=== PATIENT | male | born 1930 | race Caucasian/White ===

== ENCOUNTER 2016-09-06 16:31 | Inpatient (IN) | payer MEDICARE, MEDICAID ==
[2016-09-06] MEDS ORDERED: Sodium Chloride 0.9% 1,000 ML IV ONE ×2 (16:39→23:02)
[2016-09-06] MEDS ORDERED: Albuterol/Ipratropium Neb 3 ML AERS HHN ONE ×2 (16:42→16:43)
--- NOTE | 2016-09-06 16:59 | ED Physician Chart ---
Chief Complaint/HPI - Patient Information Date Seen:: 09/06/16 Time Seen:: 16:25 Chief Complaint:: altered mental status History of Present Illness:: Patient was brought in by paramedics. He apparently developed altered mental status one hour prior to admission. Paramedics were summoned patient. Patient has a history of pneumonia and urinary tract infection. There was no mention of recent cough, fever, vomiting or diarrhea. 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) Review:: Transfer documents Reviewed Review of Systems - Review of Systems General/Constitutional: No fever, No chills Skin: No skin lesions Head: No headache Eyes: No loss of vision ENT: No earache Neck: No neck pain Cardio Vascular: No chest pain Pulmonary: SOB, Cough GI: No nausea, No vomiting, No diarrhea G/U: No dysuria Musculoskeletal: No bone or joint pain Endocrine: No polyuria Psychiatric: Other (unknown) Past Medical History - Past Medical History Past Medical History: HTN, DM, CHF, Arthritis, Other (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; aortic valve disorder; status post pneumonia; status post urinary tract infection) Family History: Other (unavailable) Social History: Other (unavailable) Surgical History: other (unavailable) Psychiatricy History: Other (unavailable) Medication: Reviewed Family Medical History - Family Member Mother History Unknown: Yes Physical Exam - Physical Examination Other Gen/Cons comments:: Tachypneic; nonverbal; congested breathing; some coughing Head: Atraumatic Eyes: Lids, conjuctiva normal Other Skin comments:: Ecchymosis arm ENMT: External ears, nose nl Other ENMT comments:: Edentulous Neck: No nuchal rigidity Other Respiratory comments:: Diffuse harsh breath sounds Other Cardio Vascular comments:: Heart sounds inaudible GI: No organomegaly Other GI comments:: Diffuse tenderness Extremities: No edema Other Neuro/Psych comments:: Nonverbal Labs/Radiology/EKG Results - Lab Results Results: Laboratory Results - last 24 hr 09/06/16 09/06/16 09/06/16 16:45 16:52 16:52 WBC 7.1 RBC 4.10 Hgb 12.3 L Hct 37.6 L MCV 91.8 MCH 29.9 MCHC Differential 32.6 RDW 18.4 Plt Count 101 L MPV 13.9 Neutrophils % 84.9 H Lymphocytes % 8.0 L Monocytes % 6.8 Eosinophils % 0.1 Basophils % 0.2 Sodium 162 H* Potassium 5.6 H Chloride 131 H Carbon Dioxide 26.0 Anion Gap 10.6 BUN 96 H* Creatinine 2.1 H Est GFR ( Amer) TNP Est GFR (Non-Af Amer) TNP BUN/Creatinine Ratio 45.7 Glucose 102 Whole Bld Lactic Acid Calcium 9.8 Magnesium 3.1 H Urine Source [place] Urine Color YELLOW Urine Clarity CLEAR Urine pH 5.5 Ur Specific [place] 1.020 Urine Protein NEGATIVE Urine Glucose (UA) NEGATIVE Urine Ketones NEGATIVE Urine Blood NEGATIVE Urine Nitrate NEGATIVE Urine Bilirubin NEGATIVE Urine Urobilinogen 0.2 Ur Leukocyte Esterase NEGATIVE Urine RBC NONE SEEN Urine WBC NONE SEEN Ur Epithelial Cells NONE SEEN Urine Bacteria NONE SEEN 09/06/16 16:52 WBC RBC Hgb Hct MCV MCH MCHC Differential RDW Plt Count MPV Neutrophils % Lymphocytes % Monocytes % Eosinophils % Basophils % Sodium Potassium Chloride Carbon Dioxide Anion Gap BUN Creatinine Est GFR ( Amer) Est GFR (Non-Af Amer) BUN/Creatinine Ratio Glucose Whole Bld Lactic Acid 1.85 Calcium Magnesium Urine Source Urine Color Urine Clarity Urine pH Ur Specific [place] Urine Protein Urine Glucose (UA) Urine Ketones Urine Blood Urine Nitrate Urine Bilirubin Urine Urobilinogen Ur Leukocyte Esterase Urine RBC Urine WBC Ur Epithelial Cells Urine Bacteria - Radiology Results Results: Chest x-ray right basilar infiltrate - EKG Interpretations Rate & Rhythm: atrial fibrillation with a rate of 109 [place]: normal Comments:: Frequent premature ventricular contractions; old septal myocardial infarction. Assessment - Assessment General Assessment: At 1826 patient's blood pressure remained low at 69/36 Critical Care Time: 30 minutes critical care ED Septic Shock - . Is Septic Shock (SBP<90, OR Lactate>4 mmol\L) present?: No - <6hrs of presentation: Vital Signs: Vital Signs - 8 hr 09/06/16 16:47 HR 95 RR 22 O2 Sat % 96 Reassessment (Disposition) - Reassessment Reassessment Condition:: Unchanged - Diagnosis Diagnosis:: Pneumonia; sepsis. Hypernatremic dehydration - Patient Disposition Admitted to:: ICU Spoke to:: Maximus Chilel Admitting Medical Physician:: Maximus Chilel Condition at Disposition:: Unchanged
[2016-09-06 17:05] LABS: HEMOGLOBIN 12.3 gm/dL (12.6-17.4); MEAN CORPUSCULAR HGB CONC 32.6 pg (28.0-36.0)
[2016-09-06 17:12] LABS: % BASOPHILS 0.2 % (0.0-2.0); % EOSINOPHILS 0.1 % (0.0-5.0); % MONOCYTES 6.8 % (2.0-10.0); % NEUTROPHILS 84.9 % (40.0-80.0); HEMATOCRIT 37.6 % (39.0-49.0); MEAN CELL VOLUME 91.8 fl (80-99); MEAN CORPUSCULAR HEMOGLOBIN 29.9 pg (27.0-31.0); MEAN PLATELET VOLUME 13.9 fl; PLATELET COUNT 101 Th/cmm (150-400); RED CELL DISTRIBUTION WIDTH 18.4 % (11.5-20.0); WHITE BLOOD COUNT 7.1 Th/cmm (4.8-10.8)
[2016-09-06 17:15] LABS: URINE BILIRUBIN NEGATIVE (NEGATIVE); URINE BLOOD NEGATIVE (NEGATIVE); URINE COLOR YELLOW; URINE GLUCOSE (UA) NEGATIVE (NEGATIVE); URINE KETONE NEGATIVE (NEGATIVE); URINE PH 5.5; URINE PROTEIN NEGATIVE (NEGATIVE); URINE UROBILINOGEN 0.2 E.U./dL (0.2 - 1.0)
[2016-09-06 17:16] LABS: URINE BACTERIA NONE SEEN /hpf (NONE SEEN); URINE EPITHELIAL CELLS NONE SEEN /lpf (FEW); URINE RBC NONE SEEN /hpf (0-5); URINE WBC NONE SEEN /hpf (0-5)
[2016-09-06 17:19] LABS: ANION GAP 10.6 (7.0-16.0); BUN/CREATININE RATIO 45.7; CALCIUM SERUM 9.8 mg/dL (8.6-10.3); CHLORIDE 131 mEq/L (98-107); CREATININE - SERUM 2.1 mg/dL (0.7-1.3); GLUCOSE 102 mg/dL (70-105); MAGNESIUM 3.1 mg/dL (1.9-2.7); POTASSIUM SERUM 5.6 mEq/L (3.5-5.1)
[2016-09-06 17:24] LABS: SODIUM SERUM 162 mEq/L (136-145)
[2016-09-06 17:25] LABS: BUN - UREA NITROGEN 96 mg/dL (7-25)
[2016-09-06] MEDS ORDERED: Piperacillin Sodium/Tazobact 3.375 gm Vial IV ONE ×2 (17:41→22:00)
[2016-09-06] MEDS ORDERED: Norepinephrine 4 mg/4mL Vial IV ONE ×2 (18:19→23:21)
[2016-09-06 19:28] LABS: pH 7.35 (7.35-7.45)
[2016-09-06 19:29] LABS: ABG SOURCE LB; ALLEN TEST P; FIO2 65; HCO3 23.3 mEq/L (20.0-26.0)
--- NOTE | 2016-09-06 19:32 | Admit Criteria Form ---
Admit Criteria Forms - Admit Criteria Diagnosis: PNEUMONIA, COMMUNITY ACQUIRED Clinical Indications for Admission to Inpatient Care ( Place 'X' for any and all applicable criteria): Admission is indicated for ANY ONE of the following (1)(2)(3): [ ]I. Hypoxemia indicated by ANY ONE of the following: [ ]a) Oxygen saturation less than 90% while breathing room air [ ]b) PO2 less than 60 mm Hg (8.0 kPa) while breathing room air [ ]c) Chronic lung disease with significant deterioration from baseline oxygenation [ ]II. Appropriate diagnostic testing and treatment unavailable in outpatient or recovery facility (eg,testing or infection control measures unavailable(10) [X]III. Moderate-risk or high-risk category patients (Pneumonia Severity Index (PSI) class IV or V, or CURB-65 score of 3 or greater). [ ]IV. Outpatient treatment failure as indicated by ANY ONE of the following(9) : [ ]a) Failure to respond to antibiotic (eg, resistant organism) [ ]b) Clinically significant adverse effects from medication (eg, vomiting) [ ]c) Complications of pneumonia (eg, empyema, bacteremia) [ ]d) Significant worsening of comorbid cond necessitating inpatient care (eg, chronic heart failure) [ ]V. Intermediate-risk category patients (eg, PSI class III or CURB-65 score 2) who do not improve with initial therapy and observation. [ ]. Immunocompromised patients (eg, AIDS, chronic steroid use) at moderate or high risk based on clinical evaluation. [ ]VII. Complicated pleural effusions (eg, exudative, loculated) [ ]VIII.Hemodynamic instability [ ] IX. Altered mental status that is severe or persistent. [ ]X. Dehydration that is severe or persistent. [ ]XI. Bacteremia [ ]XII. Respiratory finding (eg. tachypnea) that do not respond to outpatient or observation care treatment Extended stay beyond goal length of stay may be needed for (20) [ ]a) Unclear diagnosis [ ]b) Pleural disease [ ]c) Severe pneumonia or treatment failure (25 [ ]d) Respiratory failure (anticipate invasive or noninvasive ventilatory support) [ ]e) Abnormal serum electrolytes (serum Na concentration less than 135 mEq/L (mmol/L) (32)(33) [ ]f) Clinically significant comorbid illness (eg, heart failure, atrial fibrillation with rapid heart rate, alcohol withdrawal, renal insufficiency)(34)(35) [ ]g) Comorbid acute exacerbation of COPD(36) [ ]h) Concomitant diagnosis of malignancy that may be associated with malnutrition, immunologic impairment, or bronchial obstruction. [ ]i) Concomitant altered mental status [ ]j) Culture-identified Gram-negative or antibiotic-resistant organism (eg, Pseudomonas, methicillin-resistant Staphylococcus aureus)(30) [ ]k) Healthcare-associated pneumonia The original [facility] content created by [email or web address] has been revised. The portions of the content which have been revised are identified through the use of italic text or in bold, and [facility] has neither reviewed nor approved the modified material. All other unmodified content is copyright [facility]. Please see references footnoted in the original [facility] [employer] edition 2016 Admit Criteria Met?: Yes
[2016-09-06] MEDS ORDERED: D5-0.45NS 1,000 ML IV SCH (19:50)
[2016-09-06 20:29] VITALS: BP 100/67
[2016-09-06] MEDS: Dextrose 5% 1,000 ML IV SCH (22:30)
[2016-09-06] MEDS ORDERED: Ipratropium Neb 0.5 mg/2.5 mL UD HHN SCH (23:00)
[2016-09-06] MEDS: Albuterol/Ipratropium Neb 3 ML AERS HHN SCH (23:40)
--- NOTE | 2016-09-07 00:39 | History & Physical ---
ADMIT DATE: 09/06/2016 CHIEF COMPLAINT: Pneumonia, septic shock, dehydration and acute renal failure. HISTORY OF PRESENT ILLNESS: The patient is an 86-year-old male with long history of hypertension, CVA with right-sided weakness and dementia, presented to the Emergency Room with shortness of breath and hypoxemia evaluated by the ER physician. Initial workup significant for possible aspiration pneumonia, septic shock. The patient had fluid at the Emergency Room, was admitted to the ICU. ____ and Dr. Bowen. Pulmonary was consulted on the case. The patient started on IV fluid, IV antibiotic, Solu-Medrol and Levophed. The patient is a poor historian. PAST MEDICAL HISTORY: Significant for hypertension, stroke with right-sided weakness and dementia. PAST SURGICAL HISTORY: No recent surgery. ALLERGIES: None. MEDICATIONS: Follow admission reconciliation. SOCIAL HISTORY: No smoking or drugs or alcohol. FAMILY HISTORY: Noncontributory. REVIEW OF SYSTEMS: RENAL SYSTEM: No history of chronic renal disorder. CARDIOVASCULAR SYSTEM: He has history of hypertension. ENDOCRINE SYSTEM: No diabetes or thyroid problem. GASTROINTESTINAL SYSTEM: No upper or lower GI bleed. NEUROLOGICAL: He has history of stroke, dementia with right-sided hemiplegia. MUSCULOSKELETAL SYSTEM: He has right-sided weakness. HEMATOLOGIC SYSTEM SYSTEM: Mild anemia. RESPIRATORY SYSTEM: He has possible aspiration pneumonia. GENITOURINARY: He has acute renal failure with dehydration. PHYSICAL EXAMINATION: GENERAL: He is awake, not coherent. VITAL SIGNS: His temperature is 98, heart rate is 95 and blood pressure is 108/60. HEENT: Normocephalic. Pupils are reacting to light and accommodation. Sclerae clear. NECK: Supple. Negative for lymphadenopathy, JVD or bruit. CHEST: Bilateral diminished associated with diffuse rhonchi. HEART: S1 and S2 normal. ABDOMEN: Soft. Bowel sounds positive. EXTREMITIES: No edema. NEUROLOGIC: He is awake, not coherent. He has right-sided weakness. LABORATORY DATA: Sodium 162, potassium 5.6, BUN is 96, creatinine 2.1, magnesium 3.1 and glucose 218. White blood 7.1, hemoglobin 12.3, hematocrit 37.6 and platelet is 101. ASSESSMENT: 1. Aspiration pneumonia. 2. Septic shock. 3. Acute respiratory failure. 4. Dehydration. 5. Acute renal failure. 6. Hypernatremia. 7. Mild anemia. 8. History of cerebrovascular accident with right-sided weakness. PLAN: The patient admitted to the hospital under Dr. Chilel's service. We will start him on IV fluid, IV Solu-Medrol, breathing treatment. Dr. Dexter Bowen, pulmonology consulted on the case and ____, double back operator. CBC, CMP for tomorrow. The patient is a full code. JOB# [id number]
[2016-09-07] MEDS ORDERED: Norepinephrine 4 mg/4mL Vial IV ONE ×3 (02:11→07:14)
[2016-09-07 04:52] LABS: HEMATOCRIT 36.8 % (39.0-49.0); HEMOGLOBIN 11.9 gm/dL (12.6-17.4); MEAN CORPUSCULAR HEMOGLOBIN 30.3 pg (27.0-31.0); MEAN CORPUSCULAR HGB CONC 32.2 pg (28.0-36.0); MEAN PLATELET VOLUME 14.8 fl; PLATELET COUNT 114 Th/cmm (150-400); RED BLOOD COUNT 3.92 Mil/cmm (3.80-5.80); RED CELL DISTRIBUTION WIDTH 19.8 % (11.5-20.0)
[2016-09-07] MEDS ORDERED: Piperacillin Sodium/Tazobact 3.375 gm Vial IV ONE (05:01)
[2016-09-07 05:03] LABS: INR 3.42 (0.5-1.4)
[2016-09-07 05:08] LABS: ALB/GLOB RATIO 0.7 (1.0-1.8); ALKALINE PHOSPHATASE 59 U/L (34-104); ANION GAP 10.4 (7.0-16.0); BILIRUBIN,TOTAL 0.4 mg/dL (0.3-1.0); CARBON DIOXIDE 23.4 mEq/L (21.0-31.0); CHLORIDE 129 mEq/L (98-107); GLUCOSE 355 mg/dL (70-105); POTASSIUM SERUM 5.8 mEq/L (3.5-5.1); SGOT 14 U/L (13-39); SGPT/ALT 16 U/L (7-52); SODIUM SERUM 157 mEq/L (136-145)
[2016-09-07 05:36] LABS: BUN - UREA NITROGEN 88 mg/dL (7-25)
[2016-09-07] MEDS: methylPREDNISolone SS 40 mg Vial IVP SCH ×2 (06:15→11:38)
[2016-09-07 06:23] LABS: BAND NEUTROPHILE 17 % (0-10); NEUTROPHILS 65 % (40-80); PLATELET ESTIMATE DECREASED PLATELETS (NORMAL); PLATELET MORPHOLOGY NORMAL (NORMAL); TOTAL CELLS COUNTED 100
[2016-09-07] MEDS: INSULIN ASPART SLIDING SCALE 100 UNITS/ML UNIT SUBQ SCH ×4 (06:35→20:33)
[2016-09-07] MEDS ORDERED: Budesonide 0.5 Mg/2 mL Ud HHN SCH (07:00)
[2016-09-07] MEDS ORDERED: Albuterol/Ipratropium Neb 3 ML AERS HHN SCH (07:00)
[2016-09-07] MEDS: Albuterol/Ipratropium Neb 3 ML AERS HHN SCH ×4 (08:11→19:56)
--- NOTE | 2016-09-07 09:12 | Diagnostic Imaging Report ---
Portable chest x-ray HISTORY: Pneumonia Compared to prior exam of September 06, 2016, the heart is enlarged. Suggestion of a small right pleural effusion. No definite focal pulmonary parenchymal processes. IMPRESSION: 1. Cardiomegaly 2. suggestion of a small right pleural effusion. A marginal degree of congestive heart failure cannot be excluded. Clinical correlation is needed.
--- NOTE | 2016-09-07 09:22 | Diagnostic Imaging Report ---
Portable chest x-ray HISTORY: Shortness of breath The heart size is difficult to assess with portable technique in a poor inspiration, but appears to be somewhat enlarged. Density noted within the right lower hemithorax. A small effusion cannot be excluded. IMPRESSION: 1. Slight increased density in the right lower hemithorax. A small effusion cannot be excluded. 2. Cardiomegaly with atherosclerotic vascular changes
[2016-09-07] MEDS: Dextrose 5% 1,000 ML IV SCH ×2 (10:20→15:19)
[2016-09-07] MEDS ORDERED: Midazolam 1mg/ml 2 ml vial IV ONE ×2 (10:51→11:29)
[2016-09-07 11:09] LABS: ABG SOURCE Arterial; ALLEN TEST YES; BE(B) -9.1 mEq/L (-3.0-3.0); FIO2 44; HCO3 17.9 mEq/L (20.0-26.0)
[2016-09-07 12:06] LABS: ABG SOURCE Arterial; ALLEN TEST YES; BE(B) -9.7 mEq/L (-3.0-3.0); FIO2 100; HCO3 17.4 mEq/L (20.0-26.0); MECH RATE 12; MECH VT 600; pH 7.16 (7.35-7.45)
[2016-09-07] MEDS ORDERED: Sodium Bicarbonate 8.4% 50mEq PFS IVP ONE ×2 (12:22→12:24)
--- NOTE | 2016-09-07 13:00 | Diagnostic Imaging Report ---
KUB abdominal film HISTORY: Pain There is a nonspecific gas pattern of nondilated bowel. There is an approximate 2.8 x 2.0 cm radiodensity projecting over the left midabdomen. This is suggestive of calcification. Exact location uncertain. It is uncertain if this is within bowel. If necessary, a CT scan would provide further assessment. Severe diffuse degenerative changes seen throughout the spine. Severe extensive atherosclerotic vascular calcification noted. IMPRESSION: 1. Nonspecific bowel gas pattern 2. Radiodensity projecting over the left mid abdomen. Exact location is uncertain. Question calcification. This may be related to bowel. If necessary, a CT scan would provide additional assessment. 3. Severe degenerative changes throughout the spine 4. Extensive atherosclerotic vascular changes
--- NOTE | 2016-09-07 13:07 | General Progress Note ---
Subjective - Review of Systems Service Date: 09/07/16 Events since last encounter: THIS IS AN 86 YO MALE IN THE ICU WHO NEEDED INTUBATION BECAUSE OF ABNORMAL ABG WITH A LOW PH 7.1 THE PATIENT WAS EVALUATED AND PREPPED WITH VERSED, SUCCINYLCHOLINE THEN USED A 7.5 INTUBATION TUBE TO INTUBATE THE PATIENT WITHOUT COMPLICATIONS. THE POST X-RAYS WERE REVIEWED AND THE TUBE WAS IN GOOD PLACEMENT. THE VENT SETTING WERE FIO OF 100, RATE= 12, PEP= 5, TV= 600. Subjective: THIS IS AN ER CONSULTATION. Objective - Results Result Diagrams: 09/07/16 04:37 09/07/16 04:37 Recent Labs: Laboratory Last Values WBC 8.0 Th/cmm (4.8-10.8) 09/07/16 04:37 RBC 3.92 Mil/cmm (3.80-5.80) 09/07/16 04:37 Hgb 11.9 gm/dL (12.6-17.4) L 09/07/16 04:37 Hct 36.8 % (39.0-49.0) L 09/07/16 04:37 MCV 94.0 fl (80-99) 09/07/16 04:37 MCH 30.3 pg (27.0-31.0) 09/07/16 04:37 MCHC Differential 32.2 pg (28.0-36.0) 09/07/16 04:37 RDW 19.8 % (11.5-20.0) 09/07/16 04:37 Plt Count 114 Th/cmm (150-400) L 09/07/16 04:37 MPV 14.8 fl 09/07/16 04:37 Neutrophils % 84.9 % (40.0-80.0) H 09/06/16 16:52 Band Neutrophils % 17 % (0-10) H 09/07/16 04:37 Lymphocytes % 8.0 % (20.0-50.0) L 09/06/16 16:52 Monocytes % 6.8 % (2.0-10.0) 09/06/16 16:52 Eosinophils % 0.1 % (0.0-5.0) 09/06/16 16:52 Basophils % 0.2 % (0.0-2.0) 09/06/16 16:52 Neutrophils (Manual) 65 % (40-80) 09/07/16 04:37 Lymphocytes 13 % (20-50) L 09/07/16 04:37 Monocytes 4 % (2-10) 09/07/16 04:37 Nucleated RBCs 3.0 % (0-0) H 09/07/16 04:37 Platelet Estimate DECREASED PLATELETS (NORMAL) 09/07/16 04:37 Platelet Morphology NORMAL (NORMAL) 09/07/16 04:37 RBC Morph Micro Appear NORMAL (NORMAL) 09/07/16 04:37 PT 38.0 SECONDS (9.5-11.5) H 09/07/16 04:37 INR 3.42 (0.5-1.4) H 09/07/16 04:37 Specimen Source Arterial 09/07/16 11:45 Sample Site Right Radial 09/07/16 11:45 pH 7.16 (7.35-7.45) L* 09/07/16 11:45 pCO2 54.0 mmHg (35.0-45.0) H 09/07/16 11:45 pO2 465.0 mmHg (80.0-100.0) H 09/07/16 11:45 HCO3 17.4 mEq/L (20.0-26.0) L 09/07/16 11:45 Base Excess -9.7 mEq/L (-3.0-3.0) L 09/07/16 11:45 O2 Saturation 100.0 % (92.0-100.0) 09/07/16 11:45 [place] Test YES 09/07/16 11:45 Vent Rate 12 09/07/16 11:45 Inspired O2 100 09/07/16 11:45 Tidal Volume 600 09/07/16 11:45 PEEP 5 09/07/16 11:45 Pressure (ins/psv/peep) NA 09/07/16 11:45 Critical Value E.AGUILAR 09/07/16 11:45 Sodium 157 mEq/L (136-145) H 09/07/16 04:37 Potassium 5.8 mEq/L (3.5-5.1) H 09/07/16 04:37 Chloride 129 mEq/L (98-107) H 09/07/16 04:37 Carbon Dioxide 23.4 mEq/L (21.0-31.0) 09/07/16 04:37 Anion Gap 10.4 (7.0-16.0) 09/07/16 04:37 BUN 88 mg/dL (7-25) H* 09/07/16 04:37 Creatinine 2.0 mg/dL (0.7-1.3) H 09/07/16 04:37 Est GFR ( Amer) TNP 09/07/16 04:37 Est GFR (Non-Af Amer) TNP 09/07/16 04:37 BUN/Creatinine Ratio 44.0 09/07/16 04:37 Glucose 355 mg/dL (70-105) H 09/07/16 04:37 POC Glucose 331 MG/DL (70 - 105) H 09/07/16 06:27 Hemoglobin A1c % 6.2 % (4.0-6.0) H 09/07/16 04:37 Whole Bld Lactic Acid 1.85 mmol/L (0.60-1.99) 09/06/16 16:52 Calcium 9.0 mg/dL (8.6-10.3) 09/07/16 04:37 Magnesium 3.1 mg/dL (1.9-2.7) H 09/06/16 16:52 Total Bilirubin 0.4 mg/dL (0.3-1.0) 09/07/16 04:37 AST 14 U/L (13-39) 09/07/16 04:37 ALT 16 U/L (7-52) 09/07/16 04:37 Alkaline Phosphatase 59 U/L (34-104) 09/07/16 04:37 Total Protein 7.5 gm/dL (6.0-8.3) 09/07/16 04:37 Albumin 3.2 gm/dL (4.2-5.5) L 09/07/16 04:37 Globulin 4.3 gm/dL 09/07/16 04:37 Albumin/Globulin Ratio 0.7 (1.0-1.8) L 09/07/16 04:37 Urine Source [place] 09/06/16 16:45 Urine Color YELLOW 09/06/16 16:45 Urine Clarity CLEAR (CLEAR) 09/06/16 16:45 Urine pH 5.5 09/06/16 16:45 Ur Specific [place] 1.020 (1.005-1.030) 09/06/16 16:45 Urine Protein NEGATIVE mg/dL (NEGATIVE) 09/06/16 16:45 Urine Glucose (UA) NEGATIVE mg/dL (NEGATIVE) 09/06/16 16:45 Urine Ketones NEGATIVE mg/dL (NEGATIVE) 09/06/16 16:45 Urine Blood NEGATIVE (NEGATIVE) 09/06/16 16:45 Urine Nitrate NEGATIVE (NEGATIVE) 09/06/16 16:45 Urine Bilirubin NEGATIVE (NEGATIVE) 09/06/16 16:45 Urine Urobilinogen 0.2 E.U./dL (0.2 - 1.0) 09/06/16 16:45 Ur Leukocyte Esterase NEGATIVE (NEGATIVE) 09/06/16 16:45 Urine RBC NONE SEEN /hpf (0-5) 09/06/16 16:45 Urine WBC NONE SEEN /hpf (0-5) 09/06/16 16:45 Ur Epithelial Cells NONE SEEN /lpf (FEW) 09/06/16 16:45 Urine Bacteria NONE SEEN /hpf (NONE SEEN) 09/06/16 16:45 - Physical Exam Vitals and I&O: Vital Signs Temp 97.8 F 09/07/16 10:00 Pulse 91 09/07/16 12:24 Resp 12 09/07/16 10:00 BP 91/52 09/07/16 10:00 Pulse Ox 100 09/07/16 12:24 Intake & Output 09/06/16 09/07/16 09/07/16 18:59 06:59 18:59 Weight (lbs) 81.647 kg Active Medications: Current Medications Albuterol/Ipratropium (Duoneb Neb) 3 ml HHN [id number] [facility] Stop: 11/05/16 22:59 Last Admin: 09/07/16 12:22 Dose: 3 ml Budesonide (Pulmicort) 0.25 mg HHN BIDRT [facility] Stop: 11/06/16 06:59 Chlorhexidine Gluconate (Peridex) 15 ml MM 0800,2000 [facility] Stop: 11/06/16 19:59 Norepinephrine Bitartrate 4 mg (/ Dextrose) 254 mls @ 38.1 mls/hr IV TITR PRN; Protocol; 10 MCG/MIN PRN Reason: BP MAINTENANCE (PER PROTOCOL) Stop: 11/05/16 19:49 Last Admin: 09/07/16 10:17 Dose: 26 mcg/min, 99.06 mls/hr Piperacillin Sod/Tazobactam (Sod 3.375 gm/ Sodium Chloride) 50 mls @ 100 mls/ hr IV Q6HR JULIO Stop: 11/06/16 00:00 Last Admin: 09/07/16 06:00 Dose: 100 mls/hr Vancomycin HCl 0.75 gm/ Sodium (Chloride) 250 mls @ 165 mls/hr IV Q24H [facility]ULIO Stop: 11/05/16 20:59 Last Infusion: 09/07/16 00:02 Dose: Infused Dextrose (D5w) 1,000 mls @ 125 mls/hr IV .Q8H JULIO Stop: 11/05/16 21:41 Last Admin: 09/07/16 10:20 Dose: 125 mls/hr Insulin Aspart (Novolog Insulin Sliding Scale) 0 units SUBQ ACHS JULIO PRN Reason: Protocol Stop: 11/06/16 07:29 Last Admin: 09/07/16 06:35 Dose: 8 units Lorazepam (Ativan) 1 mg IVP Q4H PRN; Protocol PRN Reason: Agitation Stop: 11/06/16 11:18 Last Admin: 09/07/16 11:38 Dose: 1 mg Methylprednisolone Sodium Succinate (Solu-Medrol) 40 mg IVP Q6HR JULIO Stop: 11/06/16 05:59 Last Admin: 09/07/16 11:38 Dose: 40 mg Miscellaneous (Vancomycin Iv Per Pharmacy) 1 ea MC PRN PRN PRN Reason: PROTOCOL Stop: 11/05/16 19:49 Sodium Bicarbonate (Sodium Bicarb) 50 meq IVP X1 ONE Stop: 09/07/16 12:23
--- NOTE | 2016-09-07 13:13 | Diagnostic Imaging Report ---
Portable chest x-ray HISTORY: Shortness of breath Compared to prior exam taken earlier in the day (0803 hours), The heart size is enlarged. Density noted in the right lower hemithorax. Question pleural effusion. An endotracheal tube tip appears to extend just into the right main bronchus. This should be pulled back approximately 2-3 cm. A nasogastric tube extends below the diaphragm into the region of the stomach. IMPRESSION: 1. ENDOTRACHEAL TUBE TIP JUST INTO THE REGION OF THE RIGHT MAIN BRONCHUS. THIS SHOULD BE PULLED BACK APPROXIMATELY 2-3 CM 2. Nasogastric tube extends below the diaphragm into the region of the stomach
[2016-09-07] MEDS: Budesonide 0.5 Mg/2 mL Ud HHN SCH (19:55)
[2016-09-07] MEDS: Chlorhexidine Gluconate 0.12% 15mL Mouthwash MM SCH (19:56)
[2016-09-07] MEDS: methylPREDNISolone SS 40 mg Vial IV SCH (20:32)
--- NOTE | 2016-09-07 21:14 | Consultation ---
DATE OF CONSULTATION: 09/06/2016 REASON FOR CONSULTATION: Acute renal failure. HISTORY OF PRESENT ILLNESS: I was kindly asked by Dr. Chilel to evaluate this 86-year-old male from custodial facility. He came in because of altered mental status, not much history can be obtained from him. He was at the senior living and they found him altered, therefore, they brought him to the Emergency Room. When he arrived to the Emergency Room, he was found to have severe dehydration, acute renal failure, and pneumonia with sepsis. PAST MEDICAL HISTORY: He already had a history of recurrent pneumonia, UTI, and CVA with left-sided hemiplegia, congestive heart failure, history of hypertension, history of diabetes type 2, aortic valve stenosis, osteoarthritis, atrial fibrillation, hypothyroidism, peripheral vascular disease, Parkinson's disease, TIA, dysphagia, and abnormal gait. SOCIAL HISTORY: Negative for smoking, alcohol, or drugs. FAMILY HISTORY: Unavailable. MEDICATIONS: As listed in chart, apparently includes Aricept, Coumadin, calcium, Colace, Lasix, vitamin C, Synthroid, lisinopril, and Lopressor. LABORATORY DATA: Shows white count 7.1, H and H is 12 and 36, platelets is 101,000. Serum sodium 162, potassium 5.6, bicarbonate was 26, BUN is 96, creatinine 2.1, magnesium 3.1. Urinalysis is negative. PHYSICAL EXAMINATION: VITAL SIGNS: Blood pressure is low 76/51, heart rate is 117, and temperature was 97.0. HEENT: Anicteric sclerae. NECK: Supple, no JVD. LUNGS: Bilateral rhonchi. CARDIOVASCULAR: Irregular rate and rhythm. ABDOMEN: Soft and nontender. EXTREMITIES: No edema. NEUROLOGIC: Confused. ASSESSMENT AND PLAN: This is an 86-year-old male who is coming in to the hospital with pneumonia, acute renal failure, hypernatremia, dehydration, and hyperkalemia. The patient will need to be started on broad-spectrum antibiotics. I will start him on D5W and will go ahead and reassess his labs in the morning. We are trying to place an NG-tube, but he is resistant at this time. Overall prognosis is guarded. JOB# [id number]
[2016-09-07] MEDS ORDERED: Albumin 25% 25gm/100mL 25 GM/100 ML BTL IV ONE ×2 (21:43→23:55)
[2016-09-07 22:34] LABS: ANION GAP 11.8 (7.0-16.0); BUN - UREA NITROGEN 77 mg/dL (7-25); BUN/CREATININE RATIO 40.5; CALCIUM SERUM 8.6 mg/dL (8.6-10.3); CARBON DIOXIDE 19.5 mEq/L (21.0-31.0); CHLORIDE 119 mEq/L (98-107); CREATININE - SERUM 1.9 mg/dL (0.7-1.3); GLUCOSE 362 mg/dL (70-105); POTASSIUM SERUM 4.3 mEq/L (3.5-5.1); SODIUM SERUM 146 mEq/L (136-145)
[2016-09-08] MEDS: methylPREDNISolone SS 40 mg Vial IV SCH ×3 (05:25→21:15)
--- NOTE | 2016-09-08 05:31 | Progress Notes ---
DATE: 09/06/2016 PULMONARY/CRITICAL CARE PROGRESS NOTE REASON FOR CONSULTATION: Help the patient with respiratory failure and hypertension. CONSULT NOTE: This is an 86-year-old gentleman who basically brought up here in local convalescent home with a background history of previous cerebrovascular accident, right hemiparesis associated with essential hypertension. The patient was basically admitted up here because relatively found to have more shortness of breath and severe hypoxemia. Subsequently, the patient was admitted to Intensive Care Unit. Subsequently, the patient got some more subsequently. The patient was subsequently intubated and I was asked to see this patient for further care and necessary treatment. Unfortunately, meaningful detailed history from the patient is not available to me at this particular time as the patient is intubated and quite obtunded. PAST MEDICAL HISTORY: History of previous CVA, history of right hemiparesis, history of dementia, and other history is very limited at this particular time. PHYSICAL EXAMINATION: GENERAL: This is an elderly looking gentleman who though blinks his eyes, but not responding appropriately to verbal stimuli. VITAL SIGNS: Temperature is around 99-100. Heart rate is around 90s and saturation 100 initially on 100% of oxygen. HEENT: Examination of the head is essentially unremarkable. Pupils appear to be equal and reacting to light. Conjunctivae are slightly pallor. Oral cavity shows endotracheal tube in situ. Appears to be having edentulous, but otherwise unremarkable. NECK: No nuchal rigidity could be appreciated. Good bilateral carotid upstroke. CHEST: Shows scattered rales and rhonchi with generalized diminished air entry. ABDOMEN: Soft and nontender and no organomegaly. EXTREMITIES: Right leg shows some bruise marking or possibly dry gangrene, but otherwise unremarkable. LABORATORY DATA: The patient's pertinent laboratory studies: Chest x-ray shows huge cardiomegaly with some haziness in the right side, and the patient's post-intubation x-ray shows endotracheal tube is in pretty good position, some haziness in the right side and huge cardiomegaly, and the patient's other laboratory studies: CBC initially was 7.1, hemoglobin 12.3, and platelet is decreased. ABG post-intubation shows mixed acidemia and the patient's electrolytes shows sodium 157, potassium is 5.8, and creatinine is 2.0. ASSESSMENT: The patient has: 1. Aspiration, the patient. 2. Hypotension, secondary to sepsis and/or contributed by severe dehydration. 3. Alzheimer. 4. History of cerebrovascular accident with right hemiplegia. PLANS AND SUGGESTIONS: We will continue vancomycin and Zosyn as seen initially by Dr. Chilel. Aggressive inhalation treatment. Repeat sputum studies. Stabilize hemodynamically before attempting ____ and go from there. JOB# [id number]
[2016-09-08 07:09] LABS: ALKALINE PHOSPHATASE 43 U/L (34-104); ANION GAP 12.8 (7.0-16.0); BILIRUBIN,DIRECT 0.34 mg/dL (0.0-0.2); BILIRUBIN,TOTAL 0.5 mg/dL (0.3-1.0); BUN - UREA NITROGEN 76 mg/dL (7-25); CALCIUM SERUM 8.6 mg/dL (8.6-10.3); CHLORIDE 115 mEq/L (98-107); CREATININE - SERUM 1.9 mg/dL (0.7-1.3); GLUCOSE 161 mg/dL (70-105); MAGNESIUM 2.4 mg/dL (1.9-2.7); POTASSIUM SERUM 4.8 mEq/L (3.5-5.1); SGOT 16 U/L (13-39); SGPT/ALT 17 U/L (7-52); SODIUM SERUM 144 mEq/L (136-145)
[2016-09-08] MEDS: Budesonide 0.5 Mg/2 mL Ud HHN SCH ×2 (07:34→18:52)
[2016-09-08] MEDS: INSULIN ASPART SLIDING SCALE 100 UNITS/ML UNIT SUBQ SCH ×4 (07:34→21:16)
[2016-09-08] MEDS: Albuterol/Ipratropium Neb 3 ML AERS HHN SCH ×4 (07:34→18:52)
[2016-09-08 07:40] LABS: HEMOGLOBIN 10.2 gm/dL (12.6-17.4); MEAN CELL VOLUME 92.3 fl (80-99); MEAN CORPUSCULAR HEMOGLOBIN 30.6 pg (27.0-31.0); MEAN CORPUSCULAR HGB CONC 33.1 pg (28.0-36.0); MEAN PLATELET VOLUME 10.4 fl; RED BLOOD COUNT 3.33 Mil/cmm (3.80-5.80); RED CELL DISTRIBUTION WIDTH 19.3 % (11.5-20.0)
[2016-09-08 07:46] LABS: HEMATOCRIT 30.7 % (39.0-49.0)
[2016-09-08 08:34] LABS: ABG SOURCE Arterial; ALLEN TEST Positive; BE(B) -3.1 mEq/L (-3.0-3.0); HCO3 22.5 mEq/L (20.0-26.0)
[2016-09-08 08:35] LABS: MECH RATE 12
[2016-09-08 08:36] LABS: FIO2 30; MECH VT 600
[2016-09-08] MEDS ORDERED: Probiotic Screen MC PRN (09:29)
[2016-09-08] MEDS: Chlorhexidine Gluconate 0.12% 15mL Mouthwash MM SCH ×2 (09:45→19:49)
--- NOTE | 2016-09-08 10:26 | Diagnostic Imaging Report ---
Portable chest x-ray HISTORY: Shortness of breath Compared with prior exam of 09/07/2016, the heart remains enlarged. Improved visualization of the right lower lobe. No definite focal pulmonary parenchymal processes are seen. An endotracheal tube tip is approximately 2.0 cm above the vincent. A nasogastric tube remains in the region of the. IMPRESSION: 1. Improved visualization of the right lower lobe with no definite focal processes 2. Persistent cardiomegaly
[2016-09-08 11:22] LABS: ANISOCYTOSIS 1+; BAND NEUTROPHILE 16 % (0-10); METAMYELOCYTE 1 % (0-0); NEUTROPHILS 76 % (40-80); PLATELET ESTIMATE DECREASED PLATELETS (NORMAL); PLATELET MORPHOLOGY GIANT PLATELETS SEEN (NORMAL); TOTAL CELLS COUNTED 100
[2016-09-08] MEDS: Albumin 25% 25gm/100mL 25 GM/100 ML BTL IV SCH ×2 (15:28→19:00)
[2016-09-08 16:07] LABS: MEAN CELL VOLUME 91.6 fl (80-99); MEAN CORPUSCULAR HEMOGLOBIN 30.5 pg (27.0-31.0); MEAN CORPUSCULAR HGB CONC 33.3 pg (28.0-36.0); MEAN PLATELET VOLUME 10.5 fl; RED BLOOD COUNT 3.27 Mil/cmm (3.80-5.80); RED CELL DISTRIBUTION WIDTH 18.1 % (11.5-20.0); WHITE BLOOD COUNT 9.7 Th/cmm (4.8-10.8)
[2016-09-08 16:20] LABS: PLATELET COUNT NOT ABLE TO PERFORM Th/cmm (150-400)
[2016-09-08 16:27] LABS: ANISOCYTOSIS 1+; BAND NEUTROPHILE 17 % (0-10); NEUTROPHILS 73 % (40-80); TOTAL CELLS COUNTED 100
[2016-09-08 16:29] LABS: PLATELET ESTIMATE DECREASED PLATELETS (NORMAL)
[2016-09-08] MEDS ORDERED: Piperacillin Sodium/Tazobact 3.375 gm Vial IV ONE (18:20)
[2016-09-08] MEDS ORDERED: Meropenem 500 MG in Sodium Chloride 0.9% 100 ML IV SCH (22:00)
[2016-09-08] MEDS: Levofloxacin 250mg/50mL 250 MG/50 ML BAG IV SCH (22:53)
--- NOTE | 2016-09-09 03:59 | Consultation ---
DATE OF CONSULTATION: 09/08/2016 HISTORY OF PRESENT ILLNESS: This 86-year-old male was seen and examined at the courtesy of Dr. Chilel. The patient was admitted here and he is in ICU. The main problems are respiratory failure with pneumonia. The patient developed hypotension. He has been started on IV Levophed as well as IV Ronal-Synephrine. He was found to have sepsis, possibly septic shock. His troponin level was ordered. They were slightly elevated. The patient also has history of atrial fibrillation, history of diabetes mellitus, and diabetic chronic kidney disease. 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 The patient also has anemia and thrombocytopenia. Echocardiogram had shown left ventricular systolic dysfunction and LVH. No other history available from the patient. As mentioned above, the patient is on ventilator in ICU, on multiple drips. PHYSICAL EXAMINATION: VITAL SIGNS: Heart rate is 110 and blood pressure is 106/50. SKIN: Normal. HEAD: Head is normocephalic. EYES: Conjunctivae were pink. There is no icterus in the eyes. Pupils are reacting to light. NECK: There was no increased jugular venous distention, no thyromegaly, and no lymphadenopathy. Carotids equal both sides. CHEST: Bilaterally symmetrical. Moves well with respiration. Respiratory movements equal both sides. Trachea is central. ___ There is note to percussion. Breath sound bilateral rales and rhonchi. CARDIOVASCULAR SYSTEM: PMI not well localized. There is no pulsation or thrill. No parasternal heave. S1 is of varying intensity. S2 is physiologic. There were no definite S3, no rub. ABDOMEN: Soft, no rigidity, and no guarding. Bowel sounds are present. EXTREMITIES: No edema. No calf tenderness. Peripheral pulses diminished. LABORATORY DATA: WBC count was 9.7, hemoglobin 10, hematocrit 30, and platelet count was 77,000, bands of 17. Troponin was 0.24. Ammonia level was 56, little bit high. 0.15. Sodium was 144, potassium 4.8, chloride 115, CO2 of 21. Glucose was 61. BUN 76, creatinine 1.9, hemoglobin A1c of 6.2. INR was elevated at 3.42. The patient has been on Coumadin in the group home. Echocardiogram was done which revealed ejection fraction of 45%, LVH, mitral valve annular calcification, mitral regurgitation, aortic regurgitation, tricuspid regurgitation, and pulmonic insufficiency. Right ventricular systolic pressure was 39.6. Aortic valve area was 1.47. EKG showed atrial fibrillation, PVCs, possible old septal wall injury. SUMMARY: Hypotension, possibly septic shock, sepsis, respiratory failure on ventilator, pneumonia, left ventricular systolic dysfunction, LVH, and elevated troponin level. Possibility of non-Q-wave myocardial infarction has to be considered. Atrial fibrillation with fast ventricular response. 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 DISCUSSION: This is an elderly gentleman 86 years old who has these multiple problems as outlined above. He is already on maximum dose on Levophed, maximum dose of Ronal-Synephrine and with that, blood pressure seems to be little bit better than before. To continue present management. If the hemodynamics persist, we will add beta tima. He is already anticoagulated. Thrombocytopenia, the patient is on heparin. We will have to be careful about heparin-induced thrombocytopenia. Keep a close watch on CBC, hematologic concern may be considered. Prognosis is guarded. Discussed with the RN. JOB# [id number]
[2016-09-09] MEDS: methylPREDNISolone SS 40 mg Vial IV SCH ×3 (05:00→20:41)
--- NOTE | 2016-09-09 05:14 | Consultation ---
DATE OF CONSULTATION: 09/08/2016 INFECTIOUS DISEASE CONSULTATION REFERRING PHYSICIAN: Dr. Chilel. REASON FOR CONSULTATION: Septic shock. HISTORY OF PRESENT ILLNESS: The patient is an 86-year-old male with a past medical history of recurrent pneumonia, UTI, CVA with left-sided paraplegia, congestive heart failure, history of hypertension, diabetes mellitus type 2, aortic valve stenosis, osteoarthritis, atrial fibrillation, hypothyroidism, peripheral vascular disease, Parkinson disease, TIA, dysphagia, and abdominal gait, [facility] for change in mental status. The patient is unable to give any history as the patient is intubated earlier on the ventilator support. On initial evaluation, the patient was diagnosed to have dehydration with acute renal failure, pneumonia, and sepsis. The patient was started on vancomycin and Zosyn. Next day on 09/07/2016, the patient was intubated early and put on ventilator support. Currently, the patient is receiving two vasopressors including Levophed and Ronal-Synephrine. ID consult was called for deteriorating condition. PAST MEDICAL HISTORY: Includes recurrent pneumonia, UTI, CVA with left-sided hemiplegia, congestive heart failure, history of hypertension, history of diabetes mellitus type 2, aortic valve stenosis, osteoarthritis, atrial fibrillation, hypothyroidism, peripheral vascular disease, Parkinson disease, TIA, dysphagia. SOCIAL HISTORY: The patient lives in a nursing facility. No history of smoking, alcohol, or drug use. FAMILY HISTORY: Unavailable. ALLERGIES: NKDA. MEDICATIONS: As per medication reconciliation sheet. Antibiotic ugarte, the patient is receiving vancomycin and Zosyn. REVIEW OF SYSTEMS: The patient is unable to give any history, but so far, the patient has developed fevers today 09/08/2016. The patient was short of breath and required intubation and ventilator support. PHYSICAL EXAMINATION: VITAL SIGNS: Current vital signs show temperature is 98.8 degrees Fahrenheit, T-max is 101 degrees Fahrenheit, pulse is 137, respirations 20, and blood pressure 114/67. GENERAL: The patient is comfortable. lying in the bed, not in acute distress, intubated, already on the ventilator. Cachectic. HEENT: Head is normocephalic and atraumatic. Oral cavity moist, pink tongue. Eyes: Pallor is present. NECK: Supple, no JVD. Trachea in midline. CHEST: Bilateral breath sounds. Crackles present bilaterally. HEART: S1, S2 within normal limits. Regular rhythm. No murmur, no gallop. ABDOMEN: Soft, nontender, and nondistended. Bowel sounds are present. EXTREMITIES: No cyanosis, no clubbing, and no edema. SKIN: The patient has gangrene of the third toe of the left foot. NEUROLOGIC: Alert and awake. LABORATORY DATA: Current lab shows WBC count is 9700, hemoglobin 10 and hematocrit 30, yesterday platelets were 114,000, bands 17%, and neutrophils 73%. Giant platelets are seen with decreased in number on peripheral blood smear. INR 3.42. Sodium is 144, potassium 4.8, chloride 115, bicarb is 21, BUN is 76, creatinine is 1.9, and glucose is 161. Blood cultures 2 sets of 09/06/2016 were negative. MRSA screen is negative. Sputum cultures pending, likely Streptococcus pneumoniae. Ammonia is 56. Lactic acid on 09/06/2016 was 1.85. Chest x-ray showed improved visualization of right lower lobe. No definite focal infiltrate. Urinalysis showed negative nitrite, negative leukoesterase. KUB shows nonspecific bowel pattern. Severe DJD. IMPRESSION: 1. Septic shock, may have disseminated intravascular coagulation and multiorgan failure. 2. Suspect pneumonia. 3. Respiratory failure, on the ventilator. 4. History of congestive heart failure. 5. Vent-dependent respiratory failure. 6. Acute renal failure versus chronic kidney disease. 7. Dementia. 8. Diabetes mellitus type 2. 9. Parkinson disease. 10. Dementia. RECOMMENDATIONS: We will change antibiotic to vancomycin, meropenem, and Levaquin. Check the blood culture, lactic acid, and other lab work. The patient's condition is critical. Prognosis is poor. ADDENDUM: The patient has left-sided gangrenous toe of left foot. Arterial studies ordered. Thank you Dr. Chilel for involving me taking care of this patient. JOB# [id number] [facility]ITALCurtis
[2016-09-09 05:21] LABS: HEMATOCRIT 28.4 % (39.0-49.0); HEMOGLOBIN 9.8 gm/dL (12.6-17.4); MEAN CORPUSCULAR HEMOGLOBIN 31.4 pg (27.0-31.0); MEAN CORPUSCULAR HGB CONC 34.5 pg (28.0-36.0); MEAN PLATELET VOLUME 11.1 fl; RED BLOOD COUNT 3.12 Mil/cmm (3.80-5.80); RED CELL DISTRIBUTION WIDTH 19.4 % (11.5-20.0); WHITE BLOOD COUNT 9.7 Th/cmm (4.8-10.8)
[2016-09-09] MEDS: Albumin 25% 25gm/100mL 25 GM/100 ML BTL IV SCH ×5 (05:23→17:32)
[2016-09-09 05:29] LABS: ALB/GLOB RATIO 1.3 (1.0-1.8); ALKALINE PHOSPHATASE 39 U/L (34-104); ANION GAP 17.9 (7.0-16.0); BILIRUBIN,TOTAL 0.8 mg/dL (0.3-1.0); BUN - UREA NITROGEN 68 mg/dL (7-25); CALCIUM SERUM 8.4 mg/dL (8.6-10.3); CARBON DIOXIDE 16.2 mEq/L (21.0-31.0); CHLORIDE 114 mEq/L (98-107); GLUCOSE 301 mg/dL (70-105); POTASSIUM SERUM 4.1 mEq/L (3.5-5.1); SGOT 22 U/L (13-39); SGPT/ALT 19 U/L (7-52); SODIUM SERUM 144 mEq/L (136-145)
[2016-09-09 05:31] LABS: PLATELET COUNT 89 Th/cmm (150-400)
[2016-09-09 06:55] LABS: ANISOCYTOSIS 1+; BAND NEUTROPHILE 11 % (0-10); EOSINOPHIL 1 % (0-5); METAMYELOCYTE 1 % (0-0); NEUTROPHILS 79 % (40-80); PLATELET ESTIMATE DECREASED PLATELETS (NORMAL); PLATELET MORPHOLOGY GIANT PLATELETS SEEN (NORMAL); TOTAL CELLS COUNTED 100
[2016-09-09] MEDS: INSULIN ASPART SLIDING SCALE 100 UNITS/ML UNIT SUBQ SCH ×4 (07:19→20:50)
[2016-09-09] MEDS: Albuterol/Ipratropium Neb 3 ML AERS HHN SCH ×4 (07:45→18:35)
[2016-09-09] MEDS: Budesonide 0.5 Mg/2 mL Ud HHN SCH ×2 (07:45→18:35)
[2016-09-09 08:49] LABS: ABG SOURCE Arterial; ALLEN TEST Positive; BE(B) -7.2 mEq/L (-3.0-3.0); HCO3 19.3 mEq/L (20.0-26.0); pH 7.37 (7.35-7.45)
[2016-09-09 08:50] LABS: FIO2 30; MECH RATE 12; MECH VT 600
[2016-09-09 09:01] LABS: PROTHROMBIN TIME (TEST) 78.9 SECONDS (9.5-11.5)
[2016-09-09 09:02] LABS: INR 6.86 (0.5-1.4)
--- NOTE | 2016-09-09 09:09 | Diagnostic Imaging Report ---
Portable chest x-ray HISTORY: Shortness of breath Compared with prior exam of 09/08/2016, an endotracheal tube is seen with the tip at the level of the clavicles approximately 4.5 cm above the vincent. This may be advanced approximately 2.0 cm. The heart remains enlarged. There is evidence hilar pleural effusions. Changes may be associated with congestive heart failure. Clinical correlation is needed. Nasogastric tube extends into the region of the stomach. IMPRESSION: 1. Endotracheal tube placement at the level clavicles approximately 4.5 cm above the vincent. This may be advanced approximately 2.0 cm. 2. Persistent cardiomegaly with evidence of bilateral pleural effusions that may be related to congestive heart failure. Clinical correlation is needed.
--- NOTE | 2016-09-09 09:13 | Diagnostic Imaging Report ---
Portable chest x-ray HISTORY: Shortness of breath, vascular catheter placement Compared with the prior exam performed earlier in the day (0757 hours), a left-sided vascular catheter is been inserted. The tip is in the region of the superior vena cava. The heart remains enlarged. Density noted in the right left lower hemithoracic regions of may be associated with bilateral pleural effusions. Congestive heart failure cannot be excluded. IMPRESSION: 1. New vascular catheter with the tip in the region of the superior vena cava 2. No change in the cardiopulmonary status as noted above.
[2016-09-09] MEDS: Chlorhexidine Gluconate 0.12% 15mL Mouthwash MM SCH ×2 (09:21→20:05)
[2016-09-09] MEDS ORDERED: Diltiazem 5 mg/mL 5mL Vial IVP STA ×3 (11:14→18:50)
[2016-09-09] MEDS ORDERED: Diltiazem 5 mg/mL 25mL Vial IV ONE (19:08)
[2016-09-09] MEDS: Levofloxacin 250mg/50mL 250 MG/50 ML BAG IV SCH (20:39)
[2016-09-10] MEDS: Albumin 25% 25gm/100mL 25 GM/100 ML BTL IV SCH ×4 (00:23→17:43)
[2016-09-10] MEDS: methylPREDNISolone SS 40 mg Vial IV SCH ×3 (04:53→21:25)
[2016-09-10 05:16] LABS: HEMATOCRIT 26.6 % (39.0-49.0); HEMOGLOBIN 8.9 gm/dL (12.6-17.4); MEAN CELL VOLUME 91.3 fl (80-99); MEAN CORPUSCULAR HEMOGLOBIN 30.6 pg (27.0-31.0); MEAN CORPUSCULAR HGB CONC 33.5 pg (28.0-36.0); MEAN PLATELET VOLUME 13.1 fl; PLATELET COUNT 88 Th/cmm (150-400); RED BLOOD COUNT 2.91 Mil/cmm (3.80-5.80)
[2016-09-10 05:25] LABS: WHITE BLOOD COUNT 13.5 Th/cmm (4.8-10.8)
[2016-09-10 05:36] LABS: ALB/GLOB RATIO 1.8 (1.0-1.8); ALKALINE PHOSPHATASE 41 U/L (34-104); ANION GAP 14.6 (7.0-16.0); BILIRUBIN,DIRECT 0.52 mg/dL (0.0-0.2); BILIRUBIN,TOTAL 1.1 mg/dL (0.3-1.0); BUN - UREA NITROGEN 60 mg/dL (7-25); BUN/CREATININE RATIO 31.6; CARBON DIOXIDE 16.5 mEq/L (21.0-31.0); CHLORIDE 115 mEq/L (98-107); CREATININE - SERUM 1.9 mg/dL (0.7-1.3); DIGOXIN 0.2 ng/ml (0.8-2.0); GLUCOSE 347 mg/dL (70-105); POTASSIUM SERUM 4.1 mEq/L (3.5-5.1); SGOT 419 U/L (13-39); SGPT/ALT 180 U/L (7-52); SODIUM SERUM 142 mEq/L (136-145)
[2016-09-10 05:56] LABS: INR 2.22 (0.5-1.4)
[2016-09-10 06:25] LABS: BAND NEUTROPHILE 3 % (0-10); NEUTROPHILS 82 % (40-80); TOTAL CELLS COUNTED 100
[2016-09-10 06:26] LABS: PLATELET ESTIMATE DECREASED PLATELETS (NORMAL); PLATELET MORPHOLOGY GIANT PLATELETS SEEN (NORMAL)
[2016-09-10] MEDS ORDERED: Diltiazem 5 mg/mL 5mL Vial IVP ONE (06:31)
[2016-09-10] MEDS: INSULIN ASPART SLIDING SCALE 100 UNITS/ML UNIT SUBQ SCH ×4 (06:50→21:25)
[2016-09-10] MEDS: Budesonide 0.5 Mg/2 mL Ud HHN SCH ×2 (07:29→18:58)
[2016-09-10] MEDS: Albuterol/Ipratropium Neb 3 ML AERS HHN SCH ×4 (07:29→18:58)
[2016-09-10] MEDS: Calcium Carb/Vit D 500 mg/200 U Tab PO SCH (08:38)
[2016-09-10] MEDS: Levothyroxine 0.1 Mg Tab PO SCH (08:38)
[2016-09-10] MEDS: Chlorhexidine Gluconate 0.12% 15mL Mouthwash MM SCH (08:42)
[2016-09-10 09:23] LABS: ABG SOURCE Arterial; ALLEN TEST PASS; BE(B) -7.2 mEq/L (-3.0-3.0); CRITICAL VALUES REPORTED BY PW; FIO2 30; HCO3 19.2 mEq/L (20.0-26.0); MECH RATE 12; MECH VT 600
--- NOTE | 2016-09-10 10:21 | Diagnostic Imaging Report ---
Bilateral lower extremity Doppler arterial ultrasound exam HISTORY: Ischemic, peripheral vascular disease Sonographic sector images were obtained of the arterial systems of both legs. Associated Doppler data was obtained. Exam is limited due to difficulty in patient cooperation. The exam of the right leg demonstrates biphasic waveforms in the common femoral artery region. Decreased velocity noted through this area. Abnormal monophasic waveforms are noted within the superficial femoral, popliteal, anterior tibial, posterior tibial, dorsalis pedis artery regions. No appreciable flow identified within the distal portion of the superficial femoral artery. Abnormal decreased velocities noted throughout the arterial system. Sonographic images demonstrate moderate to severe diffuse atherosclerotic plaque. The exam of the left leg demonstrates biphasic waveforms in the common femoral artery. Abnormal monophasic waveforms noted within the superficial femoral, popliteal, anterior tibial, and posterior tibial arteries. No appreciable flow identified within the left dorsalis pedis artery. Moderate to severe atherosclerotic changes noted throughout the arterial system. Doppler data demonstrates marked decrease in velocity from the distal portion of the superficial femoral artery down through the lower leg. IMPRESSION: 1. Somewhat limited exam due to difficulty in patient cooperation 2. No appreciable flow appreciated in the region of the left dorsalis pedis artery and distal portion of the right superficial femoral artery. Findings consistent with occlusion. 3. Evidence of relatively severe diffuse bilateral atherosclerotic changes as noted above. If necessary, a CT angiographic study would provide additional detail.
--- NOTE | 2016-09-10 10:25 | Infectious Disease Prog Note ---
Infectious Disease Subjective - Review of Systems Service Date: 09/10/16 Subjective: Patient remains on the ventilator, no fever. He is receiving maximal doses of levophed and neosynephrine. Infectious Disease Objective - Results Result Diagrams: 09/10/16 04:22 09/10/16 04:22 Recent Labs: Laboratory Last Values WBC 13.5 Th/cmm (4.8-10.8) H D 09/10/16 04:22 Corrected WBC (auto) 13.0 Th/cmm 09/10/16 04:22 RBC 2.91 Mil/cmm (3.80-5.80) L 09/10/16 04:22 Hgb 8.9 gm/dL (12.6-17.4) L 09/10/16 04:22 Hct 26.6 % (39.0-49.0) L 09/10/16 04:22 MCV 91.3 fl (80-99) 09/10/16 04:22 MCH 30.6 pg (27.0-31.0) 09/10/16 04:22 MCHC Differential 33.5 pg (28.0-36.0) 09/10/16 04:22 RDW 19.0 % (11.5-20.0) 09/10/16 04:22 Plt Count 88 Th/cmm (150-400) L 09/10/16 04:22 MPV 13.1 fl 09/10/16 04:22 Neutrophils % 84.9 % (40.0-80.0) H 09/06/16 16:52 Band Neutrophils % 3 % (0-10) 09/10/16 04:22 Lymphocytes % 8.0 % (20.0-50.0) L 09/06/16 16:52 Monocytes % 6.8 % (2.0-10.0) 09/06/16 16:52 Eosinophils % 0.1 % (0.0-5.0) 09/06/16 16:52 Basophils % 0.2 % (0.0-2.0) 09/06/16 16:52 Neutrophils (Manual) 82 % (40-80) H 09/10/16 04:22 Lymphocytes 10 % (20-50) L 09/10/16 04:22 Monocytes 5 % (2-10) 09/10/16 04:22 Eosinophils 1 % (0-5) 09/09/16 04:50 Metamyelocytes 1 % (0-0) H 09/09/16 04:50 Nucleated RBCs 4.0 % (0-0) H 09/10/16 04:22 Platelet Estimate DECREASED PLATELETS (NORMAL) 09/10/16 04:22 Platelet Morphology GIANT PLATELETS SEEN (NORMAL) 09/10/16 04:22 Anisocytosis 1+ 09/09/16 04:50 RBC Morph Micro Appear ABNORMAL (NORMAL) 09/09/16 04:50 Plt Count 88 Th/cmm (150-750) L 09/10/16 04:22 PT 24.0 SECONDS (9.5-11.5) H 09/10/16 04:22 INR 2.22 (0.5-1.4) H 09/10/16 04:22 PTT (Actin FS) 44.0 SECONDS (26.0-38.0) H 09/10/16 04:22 Fibrinogen 317.0 mg/dL (200.0-400.0) 09/10/16 04:22 D-Dimer 462 ng/mL (100-400) H 09/10/16 04:22 Specimen Source Arterial 09/10/16 09:00 Sample Site Right Radial 09/10/16 09:00 pH 7.40 (7.35-7.45) 09/10/16 09:00 pCO2 26.0 mmHg (35.0-45.0) L 09/10/16 09:00 pO2 72.0 mmHg (80.0-100.0) L 09/10/16 09:00 HCO3 19.2 mEq/L (20.0-26.0) L 09/10/16 09:00 Base Excess -7.2 mEq/L (-3.0-3.0) L 09/10/16 09:00 O2 Saturation 94.0 % (92.0-100.0) 09/10/16 09:00 Rancho Test PASS 09/10/16 09:00 Vent Rate 12 09/10/16 09:00 Inspired O2 30 09/10/16 09:00 Tidal Volume 600 09/10/16 09:00 PEEP 5 09/10/16 09:00 Pressure (ins/psv/peep) NA 09/09/16 08:25 Critical Value PW 09/10/16 09:00 Sodium 142 mEq/L (136-145) 09/10/16 04:22 Potassium 4.1 mEq/L (3.5-5.1) 09/10/16 04:22 Chloride 115 mEq/L (98-107) H 09/10/16 04:22 Carbon Dioxide 16.5 mEq/L (21.0-31.0) L 09/10/16 04:22 Anion Gap 14.6 (7.0-16.0) 09/10/16 04:22 BUN 60 mg/dL (7-25) H 09/10/16 04:22 Creatinine 1.9 mg/dL (0.7-1.3) H 09/10/16 04:22 Est GFR ( Amer) TNP 09/10/16 04:22 Est GFR (Non-Af Amer) TNP 09/10/16 04:22 BUN/Creatinine Ratio 31.6 09/10/16 04:22 Glucose 347 mg/dL (70-105) H 09/10/16 04:22 POC Glucose 306 MG/DL (70 - 105) H 09/10/16 06:48 Hemoglobin A1c % 6.2 % (4.0-6.0) H 09/07/16 04:37 Whole Bld Lactic Acid 3.14 mmol/L (0.60-1.99) H* 09/09/16 04:50 Calcium 8.0 mg/dL (8.6-10.3) L 09/10/16 04:22 Magnesium 2.4 mg/dL (1.9-2.7) 09/08/16 06:10 Total Bilirubin 1.1 mg/dL (0.3-1.0) H 09/10/16 04:22 Direct Bilirubin 0.52 mg/dL (0.0-0.2) H 09/10/16 04:22 AST 419 U/L (13-39) H 09/10/16 04:22 ALT 180 U/L (7-52) H 09/10/16 04:22 Alkaline Phosphatase 41 U/L (34-104) 09/10/16 04:22 Ammonia 56 umol/L (16-53) H 09/08/16 06:10 Troponin I 0.24 ng/mL (0.01-0.05) H* D 09/08/16 14:21 B-Natriuretic Peptide 2130.0 pg/mL (5.0-100.0) H 09/10/16 04:22 Total Protein 6.6 gm/dL (6.0-8.3) 09/10/16 04:22 Albumin 4.2 gm/dL (4.2-5.5) 09/10/16 04:22 Globulin 2.4 gm/dL 09/10/16 04:22 Albumin/Globulin Ratio 1.8 (1.0-1.8) 09/10/16 04:22 Urine Source [place] 09/06/16 16:45 Urine Color YELLOW 09/06/16 16:45 Urine Clarity CLEAR (CLEAR) 09/06/16 16:45 Urine pH 5.5 09/06/16 16:45 Ur Specific [place] 1.020 (1.005-1.030) 09/06/16 16:45 Urine Protein NEGATIVE mg/dL (NEGATIVE) 09/06/16 16:45 Urine Glucose (UA) NEGATIVE mg/dL (NEGATIVE) 09/06/16 16:45 Urine Ketones NEGATIVE mg/dL (NEGATIVE) 09/06/16 16:45 Urine Blood NEGATIVE (NEGATIVE) 09/06/16 16:45 Urine Nitrate NEGATIVE (NEGATIVE) 09/06/16 16:45 Urine Bilirubin NEGATIVE (NEGATIVE) 09/06/16 16:45 Urine Urobilinogen 0.2 E.U./dL (0.2 - 1.0) 09/06/16 16:45 Ur Leukocyte Esterase NEGATIVE (NEGATIVE) 09/06/16 16:45 Urine RBC NONE SEEN /hpf (0-5) 09/06/16 16:45 Urine WBC NONE SEEN /hpf (0-5) 09/06/16 16:45 Ur Epithelial Cells NONE SEEN /lpf (FEW) 09/06/16 16:45 Urine Bacteria NONE SEEN /hpf (NONE SEEN) 09/06/16 16:45 Vancomycin Trough 9.6 ug/mL (10-20) L 09/08/16 21:06 Digoxin 0.2 ng/ml (0.8-2.0) L 09/10/16 04:22 - Physical Exam Vitals and I&O: Vital Signs Temp 98.1 F 09/10/16 08:00 Pulse 109 09/10/16 09:30 Resp 22 09/10/16 08:00 BP 112/55 09/10/16 09:30 Pulse Ox 96 09/10/16 09:00 Intake & Output 09/09/16 09/10/16 09/10/16 18:59 06:59 18:59 Intake Total 3061.225 3762.629 251 Output Total 750 550 Balance 2311.225 3212.629 251 Intake: Intake, IV Amount 2001.225 2862.629 251 Albumin 25% 25gm/100mL 25 200 200 gm In 100 ml @ 50 mls/hr IV Q6HR [facility] Rx#: [id number] Diltiazem 125 mg In 105.084 Dextrose 5% 100 ml @ 5 MG /HR 5 mls/hr IV TITR [facility] Rx#:[id number] Levofloxacin 250mg/50mL 50 250 mg In 50 ml @ 50 mls/ hr IV Q24HR [facility] Rx#: [id number] Meropenem 1 gm In Sodium 100 100 Chloride 0.9% 100 ml @ 100 mls/hr IV Q12H [facility] Rx #:[id number] Norepinephrine 8 mg In 511.485 724.335 Dextrose 5% 250 ml @ 30 MCG/MIN 58.05 mls/hr IV TITR [facility] Rx#:[id number] Phenylephrine HCl 10 mg 1189.74 1433.21 251 In Sodium Chloride 0.9% 250 ml @ 20 MCG/MIN 30.12 mls/hr IV TITR [facility] Rx#: [id number] Vancomycin HCl 1 gm In 250 Sodium Chloride 0.9% 250 ml @ 165 mls/hr IV Q24HR@ 2100 [facility] Rx#:[id number] Oral 0 Tube Feeding 360 300 Albumin 300 200 Other 400 400 Output: Urine 750 550 Other: # Bowel Movements 1 2 Stool Characteristics Soft Brown Green Active Medications: Current Medications Acetaminophen (Tylenol 650mg/20.3ml Suspension) 650 mg PO Q4H PRN PRN Reason: Fever > 101 Stop: 11/07/16 19:11 Last Admin: 09/09/16 15:48 Dose: 650 mg Albuterol/Ipratropium (Duoneb Neb) 3 ml HHN [id number] [facility] Stop: 11/05/16 22:59 Last Admin: 09/10/16 07:29 Dose: 3 ml Amiodarone HCl (Cordarone) 200 mg PO BID [facility] Stop: 11/08/16 13:29 Last Admin: 09/10/16 08:39 Dose: 200 mg Ascorbic Acid (Vitamin C) 500 mg PO DAILY [facility] Stop: 11/09/16 08:59 Last Admin: 09/10/16 08:38 Dose: 500 mg Budesonide (Pulmicort) 0.5 mg HHN BIDRT [facility] Stop: 11/06/16 18:59 Last Admin: 09/10/16 07:29 Dose: 0.5 mg Calcium/Vitamin D (Oscal W/Vitamin D) 1 tab PO DAILY [facility] Stop: 11/09/16 08:59 Last Admin: 09/10/16 08:38 Dose: 1 tab Carbidopa/Levodopa (Sinemet 25mg-100 Mg) 1 tab PO BID [facility] Stop: 11/08/16 16:59 Last Admin: 09/10/16 08:38 Dose: 1 tab Chlorhexidine Gluconate (Peridex) 15 ml MM 0800,2000 [facility] Stop: 11/06/16 19:59 Last Admin: 09/10/16 08:42 Dose: 15 ml Docusate Sodium (Colace) 200 mg PO DAILY [facility] Stop: 11/09/16 08:59 Last Admin: 09/10/16 08:38 Dose: 200 mg Heparin Sodium (Porcine) (Heparin) 5,000 units SUBQ Q12HR [facility] Stop: 11/06/16 20:59 Last Admin: 09/10/16 09:33 Dose: Not Given Phenylephrine HCl 10 mg/ (Sodium Chloride) 251 mls @ 30.12 mls/hr IV TITR [facility]; 20 MCG/MIN PRN Reason: Protocol Stop: 11/07/16 00:59 Last Admin: 09/10/16 08:35 Dose: 100 mcg/min, 150.6 mls/hr Albumin Human (Albuminar 25%) 25 gm in 100 mls @ 50 mls/hr IV Q6HR [facility] Stop: 09/11/16 14:59 Last Admin: 09/10/16 05:55 Dose: 50 mls/hr Levofloxacin (Levaquin Pb) 250 mg in 50 mls @ 50 mls/hr IV Q24HR [facility] Stop: 11/07/16 20:59 Last Infusion: 09/09/16 21:39 Dose: Infused Meropenem 1 gm/ Sodium (Chloride) 100 mls @ 100 mls/hr IV Q12H [facility] Stop: 11/07/16 21:59 Last Admin: 09/10/16 10:00 Dose: 100 mls/hr Vancomycin HCl 1 gm/ Sodium (Chloride) 250 mls @ 165 mls/hr IV Q24HR@2100 [facility] Stop: 11/08/16 20:59 Last Infusion: 09/09/16 23:17 Dose: Infused Diltiazem HCl 125 mg/ Dextrose 125 mls @ 5 mls/hr IV TITR [facility]; 5 MG/HR PRN Reason: Protocol Stop: 11/08/16 18:59 Last Admin: 09/10/16 06:33 Dose: 10 mg/hr, 10 mls/hr Norepinephrine Bitartrate 8 mg (/ Dextrose) 258 mls @ 0 mls/hr IV TITR PRN; Protocol; 0 MCG/MIN PRN Reason: BP MAINTENANCE (PER PROTOCOL) Stop: 11/09/16 09:14 Insulin Aspart (Novolog Insulin Sliding Scale) 0 units SUBQ ACHS [facility] PRN Reason: Protocol Stop: 11/06/16 07:29 Last Admin: 09/10/16 06:50 Dose: 8 units Levothyroxine Sodium (Synthroid) 0.1 mg PO QDAC [facility] Stop: 11/09/16 07:29 Last Admin: 09/10/16 08:38 Dose: 0.1 mg Lorazepam (Ativan) 1 mg IVP Q4H PRN; Protocol PRN Reason: Agitation Stop: 11/06/16 11:18 Last Admin: 09/07/16 11:38 Dose: 1 mg Methylprednisolone Sodium Succinate (Solu-Medrol) 40 mg IV Q8HR [facility] Stop: 09/13/16 13:01 Last Admin: 09/10/16 04:53 Dose: 40 mg Miscellaneous (Vancomycin Iv Per Pharmacy) 1 ea [facility] PRN PRN PRN Reason: PROTOCOL Stop: 11/05/16 19:49 Miscellaneous (Probiotic Screen) 1 ea MC PRN PRN PRN Reason: PROTOCOL Stop: 11/07/16 09:28 Pantoprazole Sodium (Protonix) 40 mg IVP BID [facility] Stop: 11/07/16 16:59 Last Admin: 09/10/16 08:37 Dose: 40 mg General: no acute distress, well developed, well nourished HEENT: atraumatic, normocephalic, PERRLA, EOMI, moist mucous membrane Neck: supple, no thyromegaly Cardiovascular: S1S2, regular Lungs: clear to auscultation bilaterally, clear to percussion Abdomen: soft, no tender, no distended Extremities: no cyanosis, no clubbing, no edema Neurological: awake, alert Skin: intact Infectious Disease Assmt/Plan - Assessment Assessment: 1. Septic shock. severe sepsis. lactic acidosis. MOF. 2. Suspect pneumonia. Pneumococcal. 3. VDRF. 3. Aortic Stenosis. 4. Dementia. 5. H influenza ? colonizer versus pathogen. 6. Parkinson's disease. 7. DM2 8. HTN. - Plan Plan: Continue vanco iv and meropenem. DC levaquin. Nutritional Asmnt/Malnutr-PDOC - Dietary Evaluation Malnutrition Findings (Please click <Entered> for more info): Nutritional Asmnt/Malnutrition Start: 09/07/16 13: 01 Text: Status: Complete Freq: Document 09/07/16 13:01 [facility] (Rec: 09/07/16 13:17 [facility] [id number]) Nutritional Asmnt/Malnutrition Patient General Information Nutritional Screening High Risk Screening Diagnosis Aspiration pneumonia, septic shock, acute resp failure, acute renal failure Pertinent Medical Hx/Surgical Hx HTN, CVA right sided weakness, dementia Subjective Information 86 year old male. Pt seen resting with eyes closed. RT arriving at bedside for intubation during visit. Per RN notes, pt was intubated at 10:30am. Current Diet Order/ Nutrition Support No order. Pertinent Medications D5, Novolog, Solu-Medrol, Vancomycin Pertinent Labs 09/07: potassium 5.8H, BUN 88H (improving), creatiine 2 ( improving), gulcose 355H, A1c 6.2H Nutritional Hx/Data Height 1.78 m Height (Calculated Centimeters) 177.8 Current Weight (lbs) 85.956 kg Weight (Calculated Kilograms) 86.0 Weight (Calculated Grams) 09713.8 [place] Body Weight 166 Weight Status Overweight GI Symptoms Skin Integrity/Comment: Ricardo 12. 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 Estimated Nutritional Goals Calories/Kcals/Kg IBW 166lb/75.5kg Kcals Calculated 2114-2416kcal (28-32kcal/kg) Protein g/kg: IBW Protein Calculated 91-136g (1.2-1.8g/kg, monitor acute renal, septic shock and PNA) Fluid: ml 2114-2416ml (1ml/kcal) Nutritional Problem 1. Problem Problem Increased kcal and prot needs related to Etiology hypermetabolic state aeb Signs/Symptoms: septic shock, aspiration penumonia Intervention/Recommendation Comments 1. No nutrition intervention at this time until pt is medically stable, pt newly intubated today. RD to follow tomorrow. Expected Outcomes/Goals Expected Outcomes/Goals 1. Pt to meet at least 75% of estimated nutritional needs.
--- NOTE | 2016-09-10 10:33 | Diagnostic Imaging Report ---
Portable chest x-ray HISTORY: Shortness of breath Compared to prior exam of 09/09/2016, the heart remains enlarged. Evidence of persistent small bilateral pleural effusions. The endotracheal tube tip is approximately 3.0 cm above the vincent. IMPRESSION: 1. No change in the cardiopulmonary status.
--- NOTE | 2016-09-10 11:50 | Progress Notes ---
DATE: 09/09/2016 PULMONARY PROGRESS NOTE PROBLEM LIST: 1. Acute respiratory failure, on mechanical ventilation. 2. Hypotension, on multiple vasopressors. 3. Congestive heart failure. 4. Left hemiparesis. SYMPTOMS: Nil. He is awake, restless. He is able to move right upper and lower extremities. No respiratory distress at this particular time. PHYSICAL EXAMINATION: VITAL SIGNS: The patient's temperature is 97, heart rate is ranging from 110 to 160, and BP is ranging from 105 to 96 systolic, and currently ____ okay on 30% of oxygen on mechanical ventilation with assist control. NECK: Veins not visualized. CHEST: Shows occasional rhonchi with diminished air entry. HEART: Regular. ABDOMEN: Soft, nontender. EXTREMITIES: Shows no peripheral edema. LABORATORY DATA: The patient's chest x-ray shows consistent with congestive heart failure. ET tube ____ on higher side. White count is 9.7, hemoglobin 9.8. The patient's INR is 6.8. ABG shows alveolar hypoventilation, pO2 of 82 on 30% of oxygen with PEEP of 5. Electrolytes are okay with creatinine 2.0, BUN is 68. Arterial duplex scan of the lower extremities, report is pending. ASSESSMENT: The patient with persistent hypertension, exact etiology is not clearcut. Now x-ray is suggestive also possibly congestive heart failure with cardiac arrhythmia. PLANS AND SUGGESTIONS: We will go ahead and continue current treatment. We will give ____ of steroid and see how he does, and we will try to go ____ once blood pressure is stable and go from there. JOB# [id number]
--- NOTE | 2016-09-10 13:02 | Consultation ---
DATE OF CONSULTATION: 09/10/2016 HEMATOLOGY ONCOLOGY CONSULTATION REFERRING PHYSICIAN: Maximus Chilel M.D. REASON FOR CONSULTATION: Thrombocytopenia and coagulopathy. HISTORY OF PRESENT ILLNESS: The patient is an 86-year-old male who was admitted with respiratory failure and intubated, pneumonia, hypertension requiring vasopressors. He was noted to have fall in platelet count and persistent coagulopathy. Therefore, I was asked to evaluate. The patient is followed by multiple consultants, the butt presser, the metal fabricating shop helper, the incident response manager and ID specialist. He also has arising troponins and congestive heart failure. MEDICATIONS: Reviewed including meropenem, vancomycin, subq heparin, and Protonix. PAST MEDICAL HISTORY: As mentioned above, in addition to diabetes, peripheral arterial disease, atrial fibrillation on chronic anticoagulation and chronic kidney disease. PHYSICAL EXAMINATION: GENERAL: The patient is unresponsive, opening eyes, noncommunicative. He is on maximum ____ on Levophed. VITAL SIGNS: Blood pressure 100/50, on nasogastric tube and endotracheal tube ventilator. ABDOMEN: Soft and distended. EXTREMITIES: Cold both lower extremities with ischemic changes on the toes and multiple skin abrasions and wounds and ecchymosis of different stages. LABORATORY DATA: PTT today 44, yesterday was 67. INR 2.2, yesterday was 6.8, fibrinogen 317. White count 9.7, hemoglobin ____, platelets 89. Creatinine 1.9. Bilirubin 1.1, BNP 2130. ASSESSMENT: 1. Septic shock, respiratory failure, pneumonia. 2. Disseminated intravascular coagulation. 3. Vitamin K deficiency. 4. Congestive heart failure. 5. Chronic kidney disease. PLAN: The patient was given vitamin K with improvement of the INR. At this point, there is no bleeding and I will watch the coagulation panel and platelet count closely with the transfusion products if needed. Thank you Dr. Chilel for the opportunity to participate in the care of interesting case. JOB# [id number]
--- NOTE | 2016-09-10 18:19 | Cardiology ---
09/08/[address] Chilel. M-MODE ECHOCARDIOGRAM: Mitral valve, anterior leaflet of mitral valve shows decreased excursion, EF velocity. Posterior leaflet of the mitral valve shows decreased excursion. Left ventricular posterior wall shows increased thickness, normal excursion. Interventricular septum shows increased thickness, normal excursion, hypertrophy of the left ventricle, ejection fraction 45%. Left atrium normal. Aortic root shows normal dimension, sclerosis of aortic leaflets, decreased excursion, mild aortic stenosis. CONCLUSION: Hypertrophy of the left ventricle, ejection fraction 45%, mild aortic stenosis. 2D ECHO: Long axis view shows enlarged left ventricular cavity with decreased ejection fraction, hypertrophy of the left ventricle. Left atrium normal. Aortic root shows normal dimension with mild aortic stenosis. Short axis view mitral valve normal, short axis view of aortic valve shows mild aortic stenosis. Apical four chamber view shows enlarged left ventricular cavity, hypertrophy of the left ventricle, ejection fraction 45%. Left atrium normal. Right ventricular cavity, right atrium normal, no pericardial effusion. CONCLUSION: Hypertrophy of the left ventricle, ejection fraction 45%. Mild aortic stenosis. Doppler study shows mild mitral regurgitation, aortic regurgitation, pulmonary regurgitation, moderate tricuspid regurgitation, aortic valve area 1.4 cm2. Right ventricular systolic pressure is 39 mmHg. JOB# [id number]
[2016-09-11] MEDS: Chlorhexidine Gluconate 0.12% 15mL Mouthwash MM SCH ×3 (00:40→20:38)
[2016-09-11] MEDS ORDERED: Albumin 25% 25gm/100mL 50 GM/200 ML BTL IV ONE (00:40)
[2016-09-11] MEDS: Albumin 25% 25gm/100mL 25 GM/100 ML BTL IV SCH ×3 (00:43→11:20)
--- NOTE | 2016-09-11 04:28 | Progress Notes ---
DATE: 09/10/2016 PROBLEM LIST: 1. Acute respiratory failure, persistent. 2. Persistent hypotension, on Levophed. 3. Congestive heart failure. 4. History of CVA. SYMPTOMS: None. Noncommunicative. Not in any acute distress. The patient is still currently on assist control mode on 30% of oxygen and also on still high dose of Levaquin. PHYSICAL EXAMINATION: VITAL SIGNS: Afebrile. Heart rate is 110-120; blood pressure is ranging from 90-105, on vasopressors and saturation is okay on 30%. NECK: Veins not visualized. CHEST: Shows diminished air entry with occasional rhonchi. HEART: Regular. ABDOMEN: Slightly distended. EXTREMITIES: Shows some pregangrenous changes ____. LABORATORY DATA: The patient's chest x-ray showed cardiomegaly ____ trach area. White count is 13.5, hemoglobin 8.9. ABG shows mild alveolar hypoventilation on 30% of oxygen. Electrolytes show BUN is 60, creatinine is 1.9 and the patient's lactic acid is still 2.7. ASSESSMENT: 1. The patient clinically not much changed, persistent hypotension. 2. Respiratory failure, questionable pneumonia. 3. Poor arterial insufficiency in both the lower extremities with history of CVA. PLANS AND SUGGESTIONS: Continue conservative treatment, steroid has been added, we will see how he does in the next few days. JOB# [id number]
[2016-09-11] MEDS: methylPREDNISolone SS 40 mg Vial IV SCH ×3 (04:54→20:41)
[2016-09-11 05:59] LABS: HEMATOCRIT 24.6 % (39.0-49.0); HEMOGLOBIN 8.4 gm/dL (12.6-17.4); INR 1.52 (0.5-1.4); MEAN CELL VOLUME 91.1 fl (80-99); MEAN CORPUSCULAR HEMOGLOBIN 31.3 pg (27.0-31.0); MEAN CORPUSCULAR HGB CONC 34.3 pg (28.0-36.0); MEAN PLATELET VOLUME 14.1 fl; PLATELET COUNT 75 Th/cmm (150-400); PROTHROMBIN TIME (TEST) 16.1 SECONDS (9.5-11.5); RED CELL DISTRIBUTION WIDTH 19.1 % (11.5-20.0)
[2016-09-11 06:04] LABS: WHITE BLOOD COUNT 13.2 Th/cmm (4.8-10.8)
[2016-09-11 06:10] LABS: ANION GAP 13.4 (7.0-16.0); BUN - UREA NITROGEN 59 mg/dL (7-25); BUN/CREATININE RATIO 31.1; CALCIUM SERUM 7.9 mg/dL (8.6-10.3); CARBON DIOXIDE 17.5 mEq/L (21.0-31.0); CHLORIDE 117 mEq/L (98-107); CREATININE - SERUM 1.9 mg/dL (0.7-1.3); GLUCOSE 235 mg/dL (70-105); POTASSIUM SERUM 3.9 mEq/L (3.5-5.1); SODIUM SERUM 144 mEq/L (136-145)
[2016-09-11] MEDS: Levothyroxine 0.1 Mg Tab PO SCH (06:41)
[2016-09-11] MEDS: INSULIN ASPART SLIDING SCALE 100 UNITS/ML UNIT SUBQ SCH ×4 (06:48→20:40)
[2016-09-11] MEDS: Albuterol/Ipratropium Neb 3 ML AERS HHN SCH ×4 (06:58→19:06)
[2016-09-11] MEDS: Budesonide 0.5 Mg/2 mL Ud HHN SCH ×2 (06:58→19:06)
[2016-09-11 08:19] LABS: BAND NEUTROPHILE 3 % (0-10); NEUTROPHILS 85 % (40-80); TOTAL CELLS COUNTED 100
[2016-09-11 08:20] LABS: PLATELET ESTIMATE SLIGHT DECREASED (NORMAL)
[2016-09-11] MEDS: Calcium Carb/Vit D 500 mg/200 U Tab PO SCH (08:55)
--- NOTE | 2016-09-11 10:11 | Diagnostic Imaging Report ---
CHEST X-RAY: AP view INDICATION: Shortness of breath, respiratory failure COMPARISON: Chest x-ray 09/10/2016 FINDINGS: Endotracheal tube is seen with tip 4 cm above the vincent. Left PICC line and NG tube are again noted without significant change. Persistent CHF is seen with small effusions and hazy infiltrates. Cardiomegaly is noted. Low lung volume are noted. IMPRESSION: Persistent CHF with small effusions and hazy bilateral infiltrates Cardiomegaly and atherosclerotic vascular disease.
--- NOTE | 2016-09-11 10:13 | Diagnostic Imaging Report ---
KUB History: Distention, reduced bowel sounds Comparison: KUB on 09/07/2016 Findings: NG tube is seen within the proximal stomach. Gas-filled loops of bowel are seen greatest along the right hemiabdomen. Advanced degenerative changes of the spine are noted. IMPRESSION: Gaseous distended loops of bowel, greatest in the right hemiabdomen. Findings may represent an ileus. A distal low grade obstructive process is considered less likely, however, clinical correlation and follow-up is recommended NG tube within the proximal stomach.
--- NOTE | 2016-09-11 12:25 | Infectious Disease Prog Note ---
Infectious Disease Subjective - Review of Systems Service Date: 09/11/16 Subjective: Patient remains on the ventilator, no fever. He is receiving tapering doses of levophed and neosynephrine. Infectious Disease Objective - Results Result Diagrams: 09/11/16 05:25 09/11/16 05:25 Recent Labs: Laboratory Last Values WBC 13.2 Th/cmm (4.8-10.8) H 09/11/16 05:25 Corrected WBC (auto) 12.0 Th/cmm 09/11/16 05:25 RBC 2.70 Mil/cmm (3.80-5.80) L 09/11/16 05:25 Hgb 8.4 gm/dL (12.6-17.4) L 09/11/16 05:25 Hct 24.6 % (39.0-49.0) L 09/11/16 05:25 MCV 91.1 fl (80-99) 09/11/16 05:25 MCH 31.3 pg (27.0-31.0) H 09/11/16 05:25 MCHC Differential 34.3 pg (28.0-36.0) 09/11/16 05:25 RDW 19.1 % (11.5-20.0) 09/11/16 05:25 Plt Count 75 Th/cmm (150-400) L 09/11/16 05:25 MPV 14.1 fl 09/11/16 05:25 Neutrophils % 84.9 % (40.0-80.0) H 09/06/16 16:52 Band Neutrophils % 3 % (0-10) 09/11/16 05:25 Lymphocytes % 8.0 % (20.0-50.0) L 09/06/16 16:52 Monocytes % 6.8 % (2.0-10.0) 09/06/16 16:52 Eosinophils % 0.1 % (0.0-5.0) 09/06/16 16:52 Basophils % 0.2 % (0.0-2.0) 09/06/16 16:52 Neutrophils (Manual) 85 % (40-80) H 09/11/16 05:25 Lymphocytes 7 % (20-50) L 09/11/16 05:25 Monocytes 5 % (2-10) 09/11/16 05:25 Eosinophils 1 % (0-5) 09/09/16 04:50 Metamyelocytes 1 % (0-0) H 09/09/16 04:50 Nucleated RBCs 10.0 % (0-0) H 09/11/16 05:25 Platelet Estimate SLIGHT DECREASED (NORMAL) 09/11/16 05:25 Platelet Morphology GIANT PLATELETS SEEN (NORMAL) 09/10/16 04:22 Anisocytosis 1+ 09/09/16 04:50 RBC Morph Micro Appear ABNORMAL (NORMAL) 09/09/16 04:50 Plt Count 75 Th/cmm (150-750) L 09/11/16 05:25 PT 16.1 SECONDS (9.5-11.5) H 09/11/16 05:25 INR 1.52 (0.5-1.4) H 09/11/16 05:25 PTT (Actin FS) 38.1 SECONDS (26.0-38.0) H 09/11/16 05:25 Fibrinogen 208.0 mg/dL (200.0-400.0) 09/11/16 05:25 D-Dimer 1580 ng/mL (100-400) H 09/11/16 05:25 Specimen Source Arterial 09/10/16 09:00 Sample Site Right Radial 09/10/16 09:00 pH 7.40 (7.35-7.45) 09/10/16 09:00 pCO2 26.0 mmHg (35.0-45.0) L 09/10/16 09:00 pO2 72.0 mmHg (80.0-100.0) L 09/10/16 09:00 HCO3 19.2 mEq/L (20.0-26.0) L 09/10/16 09:00 Base Excess -7.2 mEq/L (-3.0-3.0) L 09/10/16 09:00 O2 Saturation 94.0 % (92.0-100.0) 09/10/16 09:00 [place]o Test PASS 09/10/16 09:00 Vent Rate 12 09/10/16 09:00 Inspired O2 30 09/10/16 09:00 Tidal Volume 600 09/10/16 09:00 PEEP 5 09/10/16 09:00 Pressure (ins/psv/peep) NA 09/09/16 08:25 Critical Value PW 09/10/16 09:00 Sodium 144 mEq/L (136-145) 09/11/16 05:25 Potassium 3.9 mEq/L (3.5-5.1) 09/11/16 05:25 Chloride 117 mEq/L (98-107) H 09/11/16 05:25 Carbon Dioxide 17.5 mEq/L (21.0-31.0) L 09/11/16 05:25 Anion Gap 13.4 (7.0-16.0) 09/11/16 05:25 BUN 59 mg/dL (7-25) H 09/11/16 05:25 Creatinine 1.9 mg/dL (0.7-1.3) H 09/11/16 05:25 Est GFR ( Amer) TNP 09/11/16 05:25 Est GFR (Non-Af Amer) TNP 09/11/16 05:25 BUN/Creatinine Ratio 31.1 09/11/16 05:25 Glucose 235 mg/dL (70-105) H 09/11/16 05:25 POC Glucose 197 MG/DL (70 - 105) H 09/11/16 11:15 Hemoglobin A1c % 6.2 % (4.0-6.0) H 09/07/16 04:37 Whole Bld Lactic Acid 1.93 mmol/L (0.60-1.99) 09/11/16 08:00 Calcium 7.9 mg/dL (8.6-10.3) L 09/11/16 05:25 Magnesium 2.4 mg/dL (1.9-2.7) 09/08/16 06:10 Total Bilirubin 1.1 mg/dL (0.3-1.0) H 09/10/16 04:22 Direct Bilirubin 0.52 mg/dL (0.0-0.2) H 09/10/16 04:22 AST 419 U/L (13-39) H 09/10/16 04:22 ALT 180 U/L (7-52) H 09/10/16 04:22 Alkaline Phosphatase 41 U/L (34-104) 09/10/16 04:22 Ammonia 56 umol/L (16-53) H 09/08/16 06:10 Troponin I 0.24 ng/mL (0.01-0.05) H* D 09/08/16 14:21 B-Natriuretic Peptide 2130.0 pg/mL (5.0-100.0) H 09/10/16 04:22 Total Protein 6.6 gm/dL (6.0-8.3) 09/10/16 04:22 Albumin 4.2 gm/dL (4.2-5.5) 09/10/16 04:22 Globulin 2.4 gm/dL 09/10/16 04:22 Albumin/Globulin Ratio 1.8 (1.0-1.8) 09/10/16 04:22 Urine Source [place] 09/06/16 16:45 Urine Color YELLOW 09/06/16 16:45 Urine Clarity CLEAR (CLEAR) 09/06/16 16:45 Urine pH 5.5 09/06/16 16:45 Ur Specific [place] 1.020 (1.005-1.030) 09/06/16 16:45 Urine Protein NEGATIVE mg/dL (NEGATIVE) 09/06/16 16:45 Urine Glucose (UA) NEGATIVE mg/dL (NEGATIVE) 09/06/16 16:45 Urine Ketones NEGATIVE mg/dL (NEGATIVE) 09/06/16 16:45 Urine Blood NEGATIVE (NEGATIVE) 09/06/16 16:45 Urine Nitrate NEGATIVE (NEGATIVE) 09/06/16 16:45 Urine Bilirubin NEGATIVE (NEGATIVE) 09/06/16 16:45 Urine Urobilinogen 0.2 E.U./dL (0.2 - 1.0) 09/06/16 16:45 Ur Leukocyte Esterase NEGATIVE (NEGATIVE) 09/06/16 16:45 Urine RBC NONE SEEN /hpf (0-5) 09/06/16 16:45 Urine WBC NONE SEEN /hpf (0-5) 09/06/16 16:45 Ur Epithelial Cells NONE SEEN /lpf (FEW) 09/06/16 16:45 Urine Bacteria NONE SEEN /hpf (NONE SEEN) 09/06/16 16:45 Vancomycin Trough 9.6 ug/mL (10-20) L 09/08/16 21:06 Random Vancomycin 16.2 ug/mL (5.0-40.0) 09/11/16 05:25 Digoxin 0.2 ng/ml (0.8-2.0) L 09/10/16 04:22 - Physical Exam Vitals and I&O: Vital Signs Temp 97.5 F 09/11/16 12:00 Pulse 118 09/11/16 12:00 Resp 14 09/11/16 12:00 BP 98/64 09/11/16 12:00 Pulse Ox 99 09/11/16 12:00 Intake & Output 09/10/16 09/11/16 09/11/16 18:59 06:59 18:59 Intake Total 2293.065 2127.749 450 Output Total 700 600 Balance 8791.988 2940.749 450 Weight (lbs) 99.79 kg Intake: Intake, IV Amount 2293.065 2067.749 450 Albumin 25% 25gm/100mL 25 200 200 100 gm In 100 ml @ 50 mls/hr IV Q6HR COUNT INCLUDES THE [facility] Rx#: [id number] Diltiazem 125 mg In 138.917 Dextrose 5% 100 ml @ 5 MG /HR 5 mls/hr IV TITR COUNT INCLUDES THE [facility] Rx#:[id number] Meropenem 1 gm In Sodium 100 100 Chloride 0.9% 100 ml @ 100 mls/hr IV Q12H COUNT INCLUDES THE [facility] Rx #:[id number] Norepinephrine 8 mg In 249.615 516.000 Dextrose 5% 250 ml @ 0 MCG/MIN IV TITR PRN Rx#: [id number] Phenylephrine HCl 10 mg 1493.45 1212.832 In Sodium Chloride 0.9% 250 ml @ 20 MCG/MIN 30.12 mls/hr IV TITR COUNT INCLUDES THE [facility] Rx#: [id number] Vancomycin HCl 1 gm In 250.0 Sodium Chloride 0.9% 250 ml @ 165 mls/hr IV Q18H COUNT INCLUDES THE [facility] Rx#:[id number] Vancomycin HCl 1.25 gm In 250 Sodium Chloride 0.9% 250 ml @ 165 mls/hr IV Q24H COUNT INCLUDES THE [facility] Rx#:[id number] Oral 0 Other 60 Output: Urine 700 600 Other: # Bowel Movements 0 Stool Characteristics Foamy Soft Brown Green Active Medications: Current Medications Acetaminophen (Tylenol 650mg/20.3ml Suspension) 650 mg PO Q4H PRN PRN Reason: Fever > 101 Stop: 11/07/16 19:11 Last Admin: 09/11/16 00:34 Dose: 650 mg Albuterol/Ipratropium (Duoneb Neb) 3 ml HHN U0NFTIP COUNT INCLUDES THE [facility] Stop: 11/05/16 22:59 Last Admin: 09/11/16 11:25 Dose: 3 ml Amiodarone HCl (Cordarone) 200 mg PO BID JULIO Stop: 11/08/16 13:29 Last Admin: 09/11/16 08:55 Dose: 200 mg Ascorbic Acid (Vitamin C) 500 mg PO DAILY JULIO Stop: 11/09/16 08:59 Last Admin: 09/11/16 08:58 Dose: 500 mg Budesonide (Pulmicort) 0.5 mg HHN BIDRT JULIO Stop: 11/06/16 18:59 Last Admin: 09/11/16 06:58 Dose: 0.5 mg Calcium/Vitamin D (Oscal W/Vitamin D) 1 tab PO DAILY JULIO Stop: 11/09/16 08:59 Last Admin: 09/11/16 08:55 Dose: 1 tab Carbidopa/Levodopa (Sinemet 25mg-100 Mg) 1 tab PO BID JULIO Stop: 11/08/16 16:59 Last Admin: 09/11/16 08:55 Dose: 1 tab Chlorhexidine Gluconate (Peridex) 15 ml MM 0800,2000 JULIO Stop: 11/06/16 19:59 Last Admin: 09/11/16 08:58 Dose: 15 ml Docusate Sodium (Colace) 200 mg PO DAILY JULIO Stop: 11/09/16 08:59 Last Admin: 09/11/16 08:55 Dose: 200 mg Heparin Sodium (Porcine) (Heparin) 5,000 units SUBQ Q12HR JULIO Stop: 11/06/16 20:59 Last Admin: 09/11/16 09:52 Dose: Not Given Phenylephrine HCl 10 mg/ (Sodium Chloride) 251 mls @ 30.12 mls/hr IV TITR JULIO; 20 MCG/MIN PRN Reason: Protocol Stop: 11/07/16 00:59 Last Admin: 09/11/16 06:49 Dose: 40 mcg/min, 60.24 mls/hr Albumin Human (Albuminar 25%) 25 gm in 100 mls @ 50 mls/hr IV Q6HR JULIO Stop: 09/11/16 14:59 Last Admin: 09/11/16 11:20 Dose: 50 mls/hr Meropenem 1 gm/ Sodium (Chloride) 100 mls @ 100 mls/hr IV Q12H JULIO Stop: 11/07/16 21:59 Last Infusion: 09/11/16 10:05 Dose: Infused Diltiazem HCl 125 mg/ Dextrose 125 mls @ 5 mls/hr IV TITR JULIO; 5 MG/HR PRN Reason: Protocol Stop: 11/08/16 18:59 Last Titration: 09/11/16 00:00 Dose: 0 mg/hr, 0 mls/hr Norepinephrine Bitartrate 8 mg (/ Dextrose) 258 mls @ 0 mls/hr IV TITR PRN; Protocol; 0 MCG/MIN PRN Reason: BP MAINTENANCE (PER PROTOCOL) Stop: 11/09/16 09:14 Last Admin: 09/11/16 06:50 Dose: 10 mcg/min, 19.35 mls/hr Vancomycin HCl 1.25 gm/ Sodium (Chloride) 250 mls @ 165 mls/hr IV Q24H JULIO Stop: 11/10/16 08:59 Last Infusion: 09/11/16 11:23 Dose: Infused Insulin Aspart (Novolog Insulin Sliding Scale) 0 units SUBQ ACHS JULIO PRN Reason: Protocol Stop: 11/06/16 07:29 Last Admin: 09/11/16 11:18 Dose: Not Given Levothyroxine Sodium (Synthroid) 0.1 mg PO QDAC JULIO Stop: 11/09/16 07:29 Last Admin: 09/11/16 06:41 Dose: 0.1 mg Lorazepam (Ativan) 1 mg IVP Q4H PRN; Protocol PRN Reason: Agitation Stop: 11/06/16 11:18 Last Admin: 09/11/16 00:34 Dose: 1 mg Methylprednisolone Sodium Succinate (Solu-Medrol) 40 mg IV Q8HR JULIO Stop: 09/13/16 13:01 Last Admin: 09/11/16 04:54 Dose: 40 mg Miscellaneous (Vancomycin Iv Per Pharmacy) 1 ea MC PRN PRN PRN Reason: PROTOCOL Stop: 11/05/16 19:49 Miscellaneous (Probiotic Screen) 1 ea MC PRN PRN PRN Reason: PROTOCOL Stop: 11/07/16 09:28 Pantoprazole Sodium (Protonix) 40 mg IVP BID COUNT INCLUDES THE [facility] Stop: 11/07/16 16:59 Last Admin: 09/11/16 08:55 Dose: 40 mg General: no acute distress, well developed, well nourished HEENT: atraumatic, normocephalic, PERRLA, EOMI, moist mucous membrane Neck: supple, no thyromegaly Cardiovascular: S1S2, regular Lungs: clear to auscultation bilaterally, clear to percussion Abdomen: soft, no tender, no distended Extremities: edema, no cyanosis, no clubbing Neurological: other (unresponsive) Skin: intact - Procedures Procedures: Procedures Procedure Code Date INSERT EMERGENCY AIRWAY 21159 09/06/16 INSERTION OF ENDOTRACHEAL AIRWAY INTO [place], VIA OPENING [id number] 09/06/16 RESPIRATORY VENTILATION, 24-96 CONSECUTIVE HOURS [id number] 09/06/16 VENT MGMT INPAT INIT DAY 09/06/16 VENT MGMT INPAT SUBQ DAY 09/06/16 Infectious Disease Assmt/Plan - Assessment Assessment: 1. Septic shock. severe sepsis. lactic acidosis. MOF. 2. Suspect pneumonia. Pneumococcal. 3. VDRF. 3. Aortic Stenosis. 4. Dementia. 5. H influenza ? colonizer versus pathogen. 6. Parkinson's disease. 7. DM2 8. HTN. - Plan Plan: DC vanco iv and meropenem. Start rocephin and flagyl. Nutritional Asmnt/Malnutr-PDOC - Dietary Evaluation Malnutrition Findings (Please click <Entered> for more info): Nutritional Asmnt/Malnutrition Start: 09/07/16 13: 01 Text: Status: Complete Freq: Document 09/07/16 13:01 [facility] (Rec: 09/07/16 13:17 ARACELI [id number]) Nutritional Asmnt/Malnutrition Patient General Information Nutritional Screening High Risk Screening Diagnosis Aspiration pneumonia, septic shock, acute resp failure, acute renal failure Pertinent Medical Hx/Surgical Hx HTN, CVA right sided weakness, dementia Subjective Information 86 year old male. Pt seen resting with eyes closed. RT arriving at bedside for intubation during visit. Per RN notes, pt was intubated at 10:30am. Current Diet Order/ Nutrition Support No order. Pertinent Medications D5, Novolog, Solu-Medrol, Vancomycin Pertinent Labs 09/07: potassium 5.8H, BUN 88H (improving), creatiine 2 ( improving), gulcose 355H, A1c 6.2H Nutritional Hx/Data Height 1.78 m Height (Calculated Centimeters) 177.8 Current Weight (lbs) 85.956 kg Weight (Calculated Kilograms) 86.0 Weight (Calculated Grams) 98105.8 [place] Body Weight 166 Weight Status Overweight GI Symptoms Skin Integrity/Comment: Ricardo 12. property assessment monitor: multiple bruises, coccyx reddened. Estimated Nutritional Goals Calories/Kcals/Kg IBW 166lb/75.5kg Kcals Calculated 2114-2416kcal (28-32kcal/kg) Protein g/kg: IBW Protein Calculated 91-136g (1.2-1.8g/kg, monitor acute renal, septic shock and PNA) Fluid: ml 2114-2416ml (1ml/kcal) Nutritional Problem 1. Problem Problem Increased kcal and prot needs related to Etiology hypermetabolic state aeb Signs/Symptoms: septic shock, aspiration penumonia Intervention/Recommendation Comments 1. No nutrition intervention at this time until pt is medically stable, pt newly intubated today. RD to follow tomorrow. Expected Outcomes/Goals Expected Outcomes/Goals 1. Pt to meet at least 75% of estimated nutritional needs.
[2016-09-11] MEDS: metroNIDAZOLE 500mg/NS 100mL 500 MG/100 ML BAG IV SCH ×2 (13:20→20:38)
[2016-09-11] MEDS: cefTRIAXone 2 GM in Sodium Chloride 0.9% 100 ML IV SCH (14:20)
[2016-09-11 18:18] LABS: HCO3 14.6 mEq/L (20.0-26.0); pH 7.22 (7.35-7.45)
[2016-09-11 18:19] LABS: ALLEN TEST yes; BE(B) -12.8 mEq/L (-3.0-3.0); FIO2 100; MECH RATE 12; MECH VT 600
[2016-09-11] MEDS ORDERED: Sodium Bicarbonate 8.4% 50mEq PFS IVP ONE (18:33)
--- NOTE | 2016-09-12 04:47 | Progress Notes ---
DATE: 09/11/2016 PROBLEM LIST: 1. Acute respiratory failure. 2. Persistent hypotension with the ventilatory full support, perfused ____. 3. History of hemiplegia, left side. SYMPTOMS: Nil. Moves the patient from side to side, no respiratory distress, etc. PHYSICAL EXAMINATION: VITAL SIGNS: The patient's temperature is 97.5, heart rate is 110-120 and blood pressure is on vasopressors in mid 90s systolic, mid diastolic 64, saturation 99%. NECK: Essentially unremarkable. CHEST: Shows diminished air entry. No other adventitious breath sounds. HEART: Regular. ABDOMEN: Soft, nontender, slightly distended. LABORATORY DATA: White count is 13.2, hemoglobin 8.4 and platelet is ____ and lactic acid 2.3. ASSESSMENT: The patient is clinically status quo, not significantly improved with persistent hypotension, persistent respiratory failure, persistent abnormal chest x-ray more indicative of possibly left ventricular dysfunction with cardiomegaly. PLANS AND SUGGESTIONS: We will go and continue supportive care. Overall, prognosis appears to be very poor. JOB# [id number]
[2016-09-12] MEDS: methylPREDNISolone SS 40 mg Vial IV SCH ×3 (05:05→20:35)
[2016-09-12] MEDS: metroNIDAZOLE 500mg/NS 100mL 500 MG/100 ML BAG IV SCH ×3 (05:05→20:35)
[2016-09-12 06:34] LABS: % BASOPHILS 0.2 % (0.0-2.0); % EOSINOPHILS 0.1 % (0.0-5.0); % LYMPHOCYTES 26.8 % (20.0-50.0); % MONOCYTES 2.9 % (2.0-10.0); HEMATOCRIT 26.2 % (39.0-49.0); HEMOGLOBIN 8.7 gm/dL (12.6-17.4); MEAN CELL VOLUME 92.4 fl (80-99); MEAN CORPUSCULAR HEMOGLOBIN 30.9 pg (27.0-31.0); MEAN CORPUSCULAR HGB CONC 33.4 pg (28.0-36.0); MEAN PLATELET VOLUME 14.6 fl; NEUTROPHILE ABSOLUTE 12.5 Th/cmm (1.8-8.0); PLATELET COUNT 78 Th/cmm (150-400); RED BLOOD COUNT 2.83 Mil/cmm (3.80-5.80); RED CELL DISTRIBUTION WIDTH 18.8 % (11.5-20.0)
[2016-09-12] MEDS: Levothyroxine 0.1 Mg Tab PO SCH (06:42)
[2016-09-12] MEDS: INSULIN ASPART SLIDING SCALE 100 UNITS/ML UNIT SUBQ SCH ×5 (06:56→20:36)
[2016-09-12 07:04] LABS: ANION GAP 15.8 (7.0-16.0); BUN - UREA NITROGEN 64 mg/dL (7-25); BUN/CREATININE RATIO 30.5; CALCIUM SERUM 8.1 mg/dL (8.6-10.3); CARBON DIOXIDE 17.4 mEq/L (21.0-31.0); CHLORIDE 116 mEq/L (98-107); CREATININE - SERUM 2.1 mg/dL (0.7-1.3); GLUCOSE 232 mg/dL (70-105); POTASSIUM SERUM 4.2 mEq/L (3.5-5.1); SODIUM SERUM 145 mEq/L (136-145)
[2016-09-12] MEDS: Albuterol/Ipratropium Neb 3 ML AERS HHN SCH ×3 (07:32→19:19)
[2016-09-12] MEDS: Budesonide 0.5 Mg/2 mL Ud HHN SCH ×2 (07:32→19:19)
[2016-09-12 07:50] LABS: WHITE BLOOD COUNT 17.8 Th/cmm (4.8-10.8)
[2016-09-12 08:11] LABS: INR 1.49 (0.5-1.4); PROTHROMBIN TIME (TEST) 15.8 SECONDS (9.5-11.5)
--- NOTE | 2016-09-12 08:17 | Diagnostic Imaging Report ---
Portable chest x-ray HISTORY: Shortness breath The heart is enlarged. An endotracheal tube tip is approximately 3.5 cm above the vincent. Evidence for right pleural effusion. Pulmonary vascular redistribution consistent cardiac decompensation noted. A vascular catheter is seen in the region of the junction of the superior vena cava and right atrium. IMPRESSION: 1. Cardiomegaly with a right pleural effusion and changes consistent with congestive heart failure. 2. Line and tube placements as noted above
--- NOTE | 2016-09-12 08:19 | Diagnostic Imaging Report ---
Portable chest x-ray HISTORY: Shortness of breath Compared with the prior exam of 09/11/2016, the heart remains enlarged. There is pulmonary vascular redistribution consistent cardiac compensation. Evidence for right pleural effusion. No change in alignment tube positions. A nasogastric tube extends into the region of the stomach. IMPRESSION: 1. No change in the cardiopulmonary status with findings of cardiomegaly, right pleural effusion consistent with congestive heart failure. 2. No change in alignment tube placements
[2016-09-12] MEDS: Calcium Carb/Vit D 500 mg/200 U Tab PO SCH (08:27)
[2016-09-12] MEDS: Chlorhexidine Gluconate 0.12% 15mL Mouthwash MM SCH ×2 (08:28→19:54)
[2016-09-12 09:51] LABS: pH 7.36 (7.35-7.45)
[2016-09-12 09:52] LABS: ABG SOURCE Arterial; ALLEN TEST YES; BE(B) -8.7 mEq/L (-3.0-3.0); FIO2 30; MECH RATE 12; MECH VT 600
[2016-09-12] MEDS: cefTRIAXone 2 GM in Sodium Chloride 0.9% 100 ML IV SCH (16:00)
[2016-09-12] MEDS: Docusate Sodium 100 mg/10 mL UD PO SCH (17:53)
--- NOTE | 2016-09-12 23:55 | Infectious Disease Prog Note ---
Infectious Disease Subjective - Review of Systems Service Date: 09/12/16 Subjective: Patient remains on the ventilator, no fever. He is receiving tapering doses of levophed and neosynephrine. Infectious Disease Objective - Results Result Diagrams: 09/12/16 05:50 09/12/16 05:50 Recent Labs: Laboratory Last Values WBC 17.8 Th/cmm (4.8-10.8) H D 09/12/16 05:50 Corrected WBC (auto) 12.0 Th/cmm 09/11/16 05:25 RBC 2.83 Mil/cmm (3.80-5.80) L 09/12/16 05:50 Hgb 8.7 gm/dL (12.6-17.4) L 09/12/16 05:50 Hct 26.2 % (39.0-49.0) L 09/12/16 05:50 MCV 92.4 fl (80-99) 09/12/16 05:50 MCH 30.9 pg (27.0-31.0) 09/12/16 05:50 MCHC Differential 33.4 pg (28.0-36.0) 09/12/16 05:50 RDW 18.8 % (11.5-20.0) 09/12/16 05:50 Plt Count 78 Th/cmm (150-400) L 09/12/16 05:50 MPV 14.6 fl 09/12/16 05:50 Neutrophils % 70.0 % (40.0-80.0) 09/12/16 05:50 Band Neutrophils % 3 % (0-10) 09/11/16 05:25 Lymphocytes % 26.8 % (20.0-50.0) 09/12/16 05:50 Monocytes % 2.9 % (2.0-10.0) 09/12/16 05:50 Eosinophils % 0.1 % (0.0-5.0) 09/12/16 05:50 Basophils % 0.2 % (0.0-2.0) 09/12/16 05:50 Neutrophils (Manual) 85 % (40-80) H 09/11/16 05:25 Lymphocytes 7 % (20-50) L 09/11/16 05:25 Monocytes 5 % (2-10) 09/11/16 05:25 Eosinophils 1 % (0-5) 09/09/16 04:50 Metamyelocytes 1 % (0-0) H 09/09/16 04:50 Nucleated RBCs 10.0 % (0-0) H 09/11/16 05:25 Platelet Estimate SLIGHT DECREASED (NORMAL) 09/11/16 05:25 Platelet Morphology GIANT PLATELETS SEEN (NORMAL) 09/10/16 04:22 Anisocytosis 1+ 09/09/16 04:50 RBC Morph Micro Appear ABNORMAL (NORMAL) 09/09/16 04:50 Plt Count 78 Th/cmm (150-750) L 09/12/16 05:50 PT 15.8 SECONDS (9.5-11.5) H 09/12/16 05:50 INR 1.49 (0.5-1.4) H 09/12/16 05:50 PTT (Actin FS) 35.8 SECONDS (26.0-38.0) 09/12/16 05:50 Fibrinogen 180.0 mg/dL (200.0-400.0) L 09/12/16 05:50 D-Dimer 1890 ng/mL (100-400) H 09/12/16 05:50 Specimen Source Arterial 09/12/16 09:28 Sample Site Right Radial 09/12/16 09:28 pH 7.36 (7.35-7.45) 09/12/16 09:28 pCO2 27.0 mmHg (35.0-45.0) L 09/12/16 09:28 pO2 66.0 mmHg (80.0-100.0) L 09/12/16 09:28 HCO3 18.0 mEq/L (20.0-26.0) L 09/12/16 09:28 Base Excess -8.7 mEq/L (-3.0-3.0) L 09/12/16 09:28 O2 Saturation 92.0 % (92.0-100.0) 09/12/16 09:28 Rancho Test YES 09/12/16 09:28 Vent Rate 12 09/12/16 09:28 Inspired O2 30 09/12/16 09:28 Tidal Volume 600 09/12/16 09:28 PEEP 5 09/12/16 09:28 Pressure (ins/psv/peep) NA 09/12/16 09:28 Critical Value E.AGUILAR 09/12/16 09:28 Sodium 145 mEq/L (136-145) 09/12/16 05:50 Potassium 4.2 mEq/L (3.5-5.1) 09/12/16 05:50 Chloride 116 mEq/L (98-107) H 09/12/16 05:50 Carbon Dioxide 17.4 mEq/L (21.0-31.0) L 09/12/16 05:50 Anion Gap 15.8 (7.0-16.0) 09/12/16 05:50 BUN 64 mg/dL (7-25) H 09/12/16 05:50 Creatinine 2.1 mg/dL (0.7-1.3) H 09/12/16 05:50 Est GFR ( Amer) TNP 09/12/16 05:50 Est GFR (Non-Af Amer) TNP 09/12/16 05:50 BUN/Creatinine Ratio 30.5 09/12/16 05:50 Glucose 232 mg/dL (70-105) H 09/12/16 05:50 POC Glucose 212 MG/DL (70 - 105) H 09/12/16 20:31 Hemoglobin A1c % 6.2 % (4.0-6.0) H 09/07/16 04:37 Whole Bld Lactic Acid 1.93 mmol/L (0.60-1.99) 09/11/16 08:00 Calcium 8.1 mg/dL (8.6-10.3) L 09/12/16 05:50 Magnesium 2.4 mg/dL (1.9-2.7) 09/08/16 06:10 Total Bilirubin 1.1 mg/dL (0.3-1.0) H 09/10/16 04:22 Direct Bilirubin 0.52 mg/dL (0.0-0.2) H 09/10/16 04:22 AST 419 U/L (13-39) H 09/10/16 04:22 ALT 180 U/L (7-52) H 09/10/16 04:22 Alkaline Phosphatase 41 U/L (34-104) 09/10/16 04:22 Ammonia 56 umol/L (16-53) H 09/08/16 06:10 Troponin I 0.24 ng/mL (0.01-0.05) H* D 09/08/16 14:21 B-Natriuretic Peptide 2130.0 pg/mL (5.0-100.0) H 09/10/16 04:22 Total Protein 6.6 gm/dL (6.0-8.3) 09/10/16 04:22 Albumin 4.2 gm/dL (4.2-5.5) 09/10/16 04:22 Globulin 2.4 gm/dL 09/10/16 04:22 Albumin/Globulin Ratio 1.8 (1.0-1.8) 09/10/16 04:22 Urine Source [place] 09/06/16 16:45 Urine Color YELLOW 09/06/16 16:45 Urine Clarity CLEAR (CLEAR) 09/06/16 16:45 Urine pH 5.5 09/06/16 16:45 Ur Specific [place] 1.020 (1.005-1.030) 09/06/16 16:45 Urine Protein NEGATIVE mg/dL (NEGATIVE) 09/06/16 16:45 Urine Glucose (UA) NEGATIVE mg/dL (NEGATIVE) 09/06/16 16:45 Urine Ketones NEGATIVE mg/dL (NEGATIVE) 09/06/16 16:45 Urine Blood NEGATIVE (NEGATIVE) 09/06/16 16:45 Urine Nitrate NEGATIVE (NEGATIVE) 09/06/16 16:45 Urine Bilirubin NEGATIVE (NEGATIVE) 09/06/16 16:45 Urine Urobilinogen 0.2 E.U./dL (0.2 - 1.0) 09/06/16 16:45 Ur Leukocyte Esterase NEGATIVE (NEGATIVE) 09/06/16 16:45 Urine RBC NONE SEEN /hpf (0-5) 09/06/16 16:45 Urine WBC NONE SEEN /hpf (0-5) 09/06/16 16:45 Ur Epithelial Cells NONE SEEN /lpf (FEW) 09/06/16 16:45 Urine Bacteria NONE SEEN /hpf (NONE SEEN) 09/06/16 16:45 Vancomycin Trough 9.6 ug/mL (10-20) L 09/08/16 21:06 Random Vancomycin 22.3 ug/mL (5.0-40.0) 09/12/16 05:50 Digoxin 0.2 ng/ml (0.8-2.0) L 09/10/16 04:22 - Physical Exam Vitals and I&O: Vital Signs Temp 98 F 09/12/16 22:00 Pulse 115 09/12/16 23:45 Resp 20 09/12/16 22:59 BP 121/77 09/12/16 23:45 Pulse Ox 98 09/12/16 22:59 Intake & Output 09/12/16 09/12/16 09/13/16 06:59 18:59 06:59 Intake Total 7977.579 4508.099 413.675 Output Total 350 450 Balance 777.177 2529.099 413.675 Weight (lbs) 104.326 kg 101.242 kg Intake: Intake, IV Amount 4586.428 1318.099 413.675 Diltiazem 125 mg In 29.7 62.675 Dextrose 5% 100 ml @ 5 MG /HR 5 mls/hr IV TITR [facility] Rx#:[id number] Norepinephrine 8 mg In 258 479.235 Dextrose 5% 250 ml @ 0 MCG/MIN IV TITR PRN Rx#: [id number] Phenylephrine HCl 10 mg 685.732 718.864 251 In Sodium Chloride 0.9% 250 ml @ 20 MCG/MIN 30.12 mls/hr IV TITR [facility] Rx#: [id number] cefTRIAXone 2 gm In 100 Sodium Chloride 0.9% 100 ml @ 100 mls/hr IV Q24H [facility] Rx#:[id number] metroNIDAZOLE 500mg/NS 200 100 100 100mL 500 mg In 100 ml @ 100 mls/hr IV Q8HR [facility] Rx #:[id number] Tube Feeding 50 TPN/PPN 120 Other 60 Output: Urine 350 450 Other: # Bowel Movements 0 Active Medications: Current Medications Acetaminophen (Tylenol 650mg/20.3ml Suspension) 650 mg PO Q4H PRN PRN Reason: Fever > 101 Stop: 11/07/16 19:11 Last Admin: 09/11/16 21:33 Dose: 650 mg Albuterol/Ipratropium (Duoneb Neb) 3 ml HHN [id number] [facility] Stop: 11/05/16 22:59 Last Admin: 09/12/16 19:19 Dose: 3 ml Amiodarone HCl (Cordarone) 200 mg PO BID [facility] Stop: 11/08/16 13:29 Last Admin: 09/12/16 16:24 Dose: 200 mg Ascorbic Acid (Vitamin C) 500 mg PO DAILY [facility] Stop: 11/09/16 08:59 Last Admin: 09/12/16 08:27 Dose: 500 mg Budesonide (Pulmicort) 0.5 mg HHN BIDRT [facility] Stop: 11/06/16 18:59 Last Admin: 09/12/16 19:19 Dose: 0.5 mg Calcium/Vitamin D (Oscal W/Vitamin D) 1 tab PO DAILY [facility] Stop: 11/09/16 08:59 Last Admin: 09/12/16 08:27 Dose: 1 tab Carbidopa/Levodopa (Sinemet 25mg-100 Mg) 1 tab PO BID [facility] Stop: 11/08/16 16:59 Last Admin: 09/12/16 16:23 Dose: 1 tab Chlorhexidine Gluconate (Peridex) 15 ml MM 0800,2000 [facility] Stop: 11/06/16 19:59 Last Admin: 09/12/16 19:54 Dose: 15 ml Docusate Sodium (Colace) 200 mg PO QPM [facility] Stop: 11/11/16 16:59 Last Admin: 09/12/16 17:53 Dose: 200 mg Heparin Sodium (Porcine) (Heparin) 5,000 units SUBQ Q12HR [facility] Stop: 11/06/16 20:59 Last Admin: 09/12/16 20:56 Dose: Not Given Phenylephrine HCl 10 mg/ (Sodium Chloride) 251 mls @ 30.12 mls/hr IV TITR [facility]UL[facility]; 20 MCG/MIN PRN Reason: Protocol Stop: 11/07/16 00:59 Last Admin: 09/12/16 21:30 Dose: 40 mcg/min, 60.24 mls/hr Diltiazem HCl 125 mg/ Dextrose 125 mls @ 5 mls/hr IV TITR [facility]UL[facility]; 5 MG/HR PRN Reason: Protocol Stop: 11/08/16 18:59 Last Titration: 09/12/16 22:45 Dose: 10 mg/hr, 10 mls/hr Norepinephrine Bitartrate 8 mg (/ Dextrose) 258 mls @ 0 mls/hr IV TITR PRN; Protocol; 0 MCG/MIN PRN Reason: BP MAINTENANCE (PER PROTOCOL) Stop: 11/09/16 09:14 Last Admin: 09/12/16 17:08 Dose: 20 mcg/min, 38.7 mls/hr Ceftriaxone Sodium 2 gm/ (Sodium Chloride) 100 mls @ 100 mls/hr IV Q24H [facility] Stop: 11/10/16 12:44 Last Infusion: 09/12/16 17:13 Dose: Infused Metronidazole (Flagyl) 500 mg in 100 mls @ 100 mls/hr IV Q8HR [facility] Stop: 11/10/16 12:59 Last Infusion: 09/12/16 21:35 Dose: Infused Insulin Aspart (Novolog Insulin Sliding Scale) 0 units SUBQ ACHS [facility] PRN Reason: Protocol Stop: 11/06/16 07:29 Last Admin: 09/12/16 20:36 Dose: 4 units Levothyroxine Sodium (Synthroid) 0.1 mg PO QDAC [facility] Stop: 11/09/16 07:29 Last Admin: 09/12/16 06:42 Dose: 0.1 mg Methylprednisolone Sodium Succinate (Solu-Medrol) 40 mg IV Q8HR [facility] Stop: 09/13/16 13:01 Last Admin: 09/12/16 20:35 Dose: 40 mg Miscellaneous (Probiotic Screen) 1 ea MC PRN PRN PRN Reason: PROTOCOL Stop: 11/07/16 09:28 Pantoprazole Sodium (Protonix) 40 mg IVP BID [facility] Stop: 11/07/16 16:59 Last Admin: 09/12/16 16:23 Dose: 40 mg General: no acute distress, well developed, well nourished HEENT: atraumatic, normocephalic, PERRLA, EOMI, moist mucous membrane Neck: supple Cardiovascular: S1S2, regular Lungs: clear to percussion, crackles Abdomen: soft, no tender, no distended Extremities: edema, no cyanosis, no clubbing Neurological: other (unresponsive) Skin: intact - Procedures Procedures: Procedures Procedure Code Date INSERT EMERGENCY AIRWAY 03291 09/06/16 INSERTION OF ENDOTRACHEAL AIRWAY INTO [place]HEA, VIA OPENING [id number] 09/06/16 RESPIRATORY VENTILATION, GREATER THAN 96 CONSECUTIVE HOURS [id number] 09/06/16 VENT MGMT INPAT INIT DAY 14280 09/06/16 VENT MGMT INPAT SUBQ DAY 14236 09/06/16 Infectious Disease Assmt/Plan - Assessment Assessment: 1. Septic shock. severe sepsis. lactic acidosis. MOF. 2. Suspect pneumonia. Pneumococcal. 3. VDRF. 3. Aortic Stenosis. 4. Dementia. 5. H influenza ? colonizer versus pathogen. 6. Parkinson's disease. 7. DM2 8. HTN. - Plan Plan: Continue rocephin and flagyl. Nutritional Asmnt/Malnutr-PDOC - Dietary Evaluation Malnutrition Findings (Please click <Entered> for more info): Nutritional Asmnt/Malnutrition Start: 09/07/16 13: 01 Text: Status: Complete Freq: Document 09/07/16 13:01 RAQUELARACELI (Rec: 09/07/16 13:17 [email or web address] [id number]) Nutritional Asmnt/Malnutrition Patient General Information Nutritional Screening High Risk Screening Diagnosis Aspiration pneumonia, septic shock, acute resp failure, acute renal failure Pertinent Medical Hx/Surgical Hx HTN, CVA right sided weakness, dementia Subjective Information 86 year old male. Pt seen resting with eyes closed. RT arriving at bedside for intubation during visit. Per RN notes, pt was intubated at 10:30am. Current Diet Order/ Nutrition Support No order. Pertinent Medications D5, Novolog, Solu-Medrol, Vancomycin Pertinent Labs 09/07: potassium 5.8H, BUN 88H (improving), creatiine 2 ( improving), gulcose 355H, A1c 6.2H Nutritional Hx/Data Height 1.78 m Height (Calculated Centimeters) 177.8 Current Weight (lbs) 85.956 kg Weight (Calculated Kilograms) 86.0 Weight (Calculated Grams) 32268.8 [place] Body Weight 166 Weight Status Overweight GI Symptoms Skin Integrity/Comment: Ricardo Womack. cupola liner: multiple bruises, coccyx reddened. Estimated Nutritional Goals Calories/Kcals/Kg IBW 166lb/75.5kg Kcals Calculated 2114-2416kcal (28-32kcal/kg) Protein g/kg: IBW Protein Calculated 91-136g (1.2-1.8g/kg, monitor acute renal, septic shock and PNA) Fluid: ml 2114-2416ml (1ml/kcal) Nutritional Problem 1. Problem Problem Increased kcal and prot needs related to Etiology hypermetabolic state aeb Signs/Symptoms: septic shock, aspiration penumonia Intervention/Recommendation Comments 1. No nutrition intervention at this time until pt is medically stable, pt newly intubated today. RD to follow tomorrow. Expected Outcomes/Goals Expected Outcomes/Goals 1. Pt to meet at least 75% of estimated nutritional needs.
[2016-09-13] MEDS: metroNIDAZOLE 500mg/NS 100mL 500 MG/100 ML BAG IV SCH ×3 (04:43→20:47)
[2016-09-13] MEDS: methylPREDNISolone SS 40 mg Vial IV SCH ×2 (04:44→13:06)
[2016-09-13 04:57] LABS: HEMOGLOBIN 9.5 gm/dL (12.6-17.4)
[2016-09-13 05:18] LABS: HEMATOCRIT 28.1 % (39.0-49.0); MEAN CORPUSCULAR HEMOGLOBIN 31.4 pg (27.0-31.0); MEAN CORPUSCULAR HGB CONC 33.8 pg (28.0-36.0); MEAN PLATELET VOLUME 11.2 fl; PLATELET COUNT 82 Th/cmm (150-400); RED BLOOD COUNT 3.02 Mil/cmm (3.80-5.80); RED CELL DISTRIBUTION WIDTH 18.6 % (11.5-20.0)
[2016-09-13 05:22] LABS: WHITE BLOOD COUNT 23.9 Th/cmm (4.8-10.8)
[2016-09-13 05:32] LABS: ALB/GLOB RATIO 2.1 (1.0-1.8); ALKALINE PHOSPHATASE 36 U/L (34-104); ANION GAP 13.4 (7.0-16.0); BILIRUBIN,TOTAL 1.4 mg/dL (0.3-1.0); BUN - UREA NITROGEN 72 mg/dL (7-25); BUN/CREATININE RATIO 34.3; CALCIUM SERUM 8.3 mg/dL (8.6-10.3); CARBON DIOXIDE 14.5 mEq/L (21.0-31.0); CHLORIDE 117 mEq/L (98-107); CREATININE - SERUM 2.1 mg/dL (0.7-1.3); GLUCOSE 257 mg/dL (70-105); POTASSIUM SERUM 3.9 mEq/L (3.5-5.1); SGOT 377 U/L (13-39); SGPT/ALT 127 U/L (7-52); SODIUM SERUM 141 mEq/L (136-145)
[2016-09-13 05:39] LABS: INR 1.55 (0.5-1.4); PROTHROMBIN TIME (TEST) 16.5 SECONDS (9.5-11.5)
--- NOTE | 2016-09-13 05:56 | Progress Notes ---
DATE: 09/12/2016 PROBLEM LIST: 1. Persistent respiratory failure. 2. Persistent hypotension. 3. Congestive heart failure. 4. Encephalopathy. 5. Significant peripheral vascular disease with some ischemic changes, pregangrenous changes. SYMPTOMS: Nil. The patient was sedated last night, exact reason not clear, looking from side to side, no respiratory distress. PHYSICAL EXAMINATION: VITAL SIGNS: Temperature is around 97, heart rate is 122, blood pressure 111/81 on vasopressors, saturation is okay on 30%. NECK: Neck veins not visualized. Good bilateral carotid upstroke. CHEST: Findings show diminished air entry with occasional rhonchi. HEART: Regular. ABDOMEN: Quite firm; otherwise, unremarkable. LABORATORY DATA: White count is 17.8, hemoglobin 8.7 and blood gases done today pO2 of 66 on 30% of oxygen. ASSESSMENT: The patient is clinically stable, unchanged with persistent hypotension, respiratory failure, etc. PLANS AND SUGGESTIONS: We will go ahead and continue current treatment, we will follow-through chest x-ray and lab tomorrow and go from there. [facility]# [id number]
[2016-09-13] MEDS ORDERED: Norepinephrine 4 mg/4mL Vial IV ONE (06:50)
[2016-09-13] MEDS: INSULIN ASPART SLIDING SCALE 100 UNITS/ML UNIT SUBQ SCH ×4 (06:52→20:50)
[2016-09-13 07:49] LABS: TOTAL CELLS COUNTED 100
[2016-09-13 07:50] LABS: BAND NEUTROPHILE 2 % (0-10); CORRECTED WBC 16.1 Th/cmm; NEUTROPHILS 88 % (40-80); PLATELET ESTIMATE SLIGHT DECREASED (NORMAL)
[2016-09-13 07:51] LABS: TOXIC GRANULATION 2+
[2016-09-13] MEDS: Chlorhexidine Gluconate 0.12% 15mL Mouthwash MM SCH ×2 (08:00→20:20)
[2016-09-13] MEDS: Budesonide 0.5 Mg/2 mL Ud HHN SCH ×2 (08:08→19:28)
[2016-09-13] MEDS: Albuterol/Ipratropium Neb 3 ML AERS HHN SCH ×4 (08:08→19:22)
[2016-09-13] MEDS: Calcium Carb/Vit D 500 mg/200 U Tab PO SCH (08:32)
[2016-09-13 08:57] LABS: ABG SOURCE Arterial; ALLEN TEST Positive; BE(B) -8.2 mEq/L (-3.0-3.0); FIO2 30; HCO3 18.4 mEq/L (20.0-26.0); MECH RATE 12; MECH VT 600; pH 7.37 (7.35-7.45)
--- NOTE | 2016-09-13 09:25 | Diagnostic Imaging Report ---
Portable chest x-ray HISTORY: Shortness of breath Compared with prior exam of 09/13/2016, the heart remains enlarged. Evidence of bilateral pleural effusions. There does appear to be degree of pulmonary vascular redistribution. An endotracheal tube tip is approximately 3.0 cm above the vincent. IMPRESSION: 1. No change in the cardiopulmonary status. Persistent cardiomegaly and bilateral pleural effusions. The findings may be associated with congestive heart failure. Underlying pneumonia cannot be excluded. Clinical correlation is needed.
--- NOTE | 2016-09-13 09:28 | Diagnostic Imaging Report ---
KUB abdominal film HISTORY: Pain Mildly dilated large nondilated small bowel. Overall appearance is nonspecific. No free peritoneal air. A nasogastric tube projects over the upper stomach. This may be advanced approximate 5.0 cm. IMPRESSION: 1. Nonspecific bowel gas pattern 2. Nasogastric tube projecting over the upper gastric region. This may be advanced approximately 5.0 cm.
[2016-09-13] MEDS: cefTRIAXone 2 GM in Sodium Chloride 0.9% 100 ML IV SCH (13:07)
--- NOTE | 2016-09-13 14:39 | Infectious Disease Prog Note ---
Infectious Disease Subjective - Review of Systems Service Date: 09/13/16 Subjective: Patient remains on the ventilator, no fever. He is receiving tapering doses of levophed and neosynephrine. As pateint's WBC count went up to 23,900, CXR and KUB ordered. He is constipated. No fever. Remains intubated orally, on the ventilator support. CXR and KUB reports are nonspecific. Infectious Disease Objective - Results Result Diagrams: 09/13/16 04:40 09/13/16 04:40 Recent Labs: Laboratory Last Values WBC 23.9 Th/cmm (4.8-10.8) H* D 09/13/16 04:40 Corrected WBC (auto) 16.1 Th/cmm 09/13/16 04:40 RBC 3.02 Mil/cmm (3.80-5.80) L 09/13/16 04:40 Hgb 9.5 gm/dL (12.6-17.4) L 09/13/16 04:40 Hct 28.1 % (39.0-49.0) L 09/13/16 04:40 MCV 93.0 fl (80-99) 09/13/16 04:40 MCH 31.4 pg (27.0-31.0) H 09/13/16 04:40 MCHC Differential 33.8 pg (28.0-36.0) 09/13/16 04:40 RDW 18.6 % (11.5-20.0) 09/13/16 04:40 Plt Count 82 Th/cmm (150-400) L 09/13/16 04:40 MPV 11.2 fl 09/13/16 04:40 Neutrophils % 70.0 % (40.0-80.0) 09/12/16 05:50 Band Neutrophils % 2 % (0-10) 09/13/16 04:40 Lymphocytes % 26.8 % (20.0-50.0) 09/12/16 05:50 Monocytes % 2.9 % (2.0-10.0) 09/12/16 05:50 Eosinophils % 0.1 % (0.0-5.0) 09/12/16 05:50 Basophils % 0.2 % (0.0-2.0) 09/12/16 05:50 Neutrophils (Manual) 88 % (40-80) H 09/13/16 04:40 Lymphocytes 5 % (20-50) L 09/13/16 04:40 Monocytes 5 % (2-10) 09/13/16 04:40 Eosinophils 1 % (0-5) 09/09/16 04:50 Metamyelocytes 1 % (0-0) H 09/09/16 04:50 Nucleated RBCs 48.0 % (0-0) H 09/13/16 04:40 Toxic Granulation 2+ 09/13/16 04:40 Platelet Estimate SLIGHT DECREASED (NORMAL) 09/13/16 04:40 Platelet Morphology GIANT PLATELETS SEEN (NORMAL) 09/10/16 04:22 Anisocytosis 1+ 09/09/16 04:50 RBC Morph Micro Appear ABNORMAL (NORMAL) 09/09/16 04:50 Plt Count 82 Th/cmm (150-750) L 09/13/16 04:40 PT 16.5 SECONDS (9.5-11.5) H 09/13/16 04:40 INR 1.55 (0.5-1.4) H 09/13/16 04:40 PTT (Actin FS) 31.9 SECONDS (26.0-38.0) 09/13/16 04:40 Fibrinogen 148.0 mg/dL (200.0-400.0) L 09/13/16 04:40 D-Dimer 2690 ng/mL (100-400) H 09/13/16 04:40 Specimen Source Arterial 09/13/16 08:33 Sample Site Right Radial 09/13/16 08:33 pH 7.37 (7.35-7.45) 09/13/16 08:33 pCO2 27.0 mmHg (35.0-45.0) L 09/13/16 08:33 pO2 66.0 mmHg (80.0-100.0) L 09/13/16 08:33 HCO3 18.4 mEq/L (20.0-26.0) L 09/13/16 08:33 Base Excess -8.2 mEq/L (-3.0-3.0) L 09/13/16 08:33 O2 Saturation 92.0 % (92.0-100.0) 09/13/16 08:33 [place] Test Positive 09/13/16 08:33 Vent Rate 12 09/13/16 08:33 Inspired O2 30 09/13/16 08:33 Tidal Volume 600 09/13/16 08:33 PEEP 5 09/13/16 08:33 Pressure (ins/psv/peep) NA 09/13/16 08:33 Critical Value LZHANG 09/13/16 08:33 Sodium 141 mEq/L (136-145) 09/13/16 04:40 Potassium 3.9 mEq/L (3.5-5.1) 09/13/16 04:40 Chloride 117 mEq/L (98-107) H 09/13/16 04:40 Carbon Dioxide 14.5 mEq/L (21.0-31.0) L 09/13/16 04:40 Anion Gap 13.4 (7.0-16.0) 09/13/16 04:40 BUN 72 mg/dL (7-25) H 09/13/16 04:40 Creatinine 2.1 mg/dL (0.7-1.3) H 09/13/16 04:40 Est GFR ( Amer) TNP 09/13/16 04:40 Est GFR (Non-Af Amer) TNP 09/13/16 04:40 BUN/Creatinine Ratio 34.3 09/13/16 04:40 Glucose 257 mg/dL (70-105) H 09/13/16 04:40 POC Glucose 232 MG/DL (70 - 105) H 09/13/16 11:41 Hemoglobin A1c % 6.2 % (4.0-6.0) H 09/07/16 04:37 Whole Bld Lactic Acid 1.93 mmol/L (0.60-1.99) 09/11/16 08:00 Calcium 8.3 mg/dL (8.6-10.3) L 09/13/16 04:40 Magnesium 2.4 mg/dL (1.9-2.7) 09/08/16 06:10 Total Bilirubin 1.4 mg/dL (0.3-1.0) H 09/13/16 04:40 Direct Bilirubin 0.52 mg/dL (0.0-0.2) H 09/10/16 04:22 AST 377 U/L (13-39) H 09/13/16 04:40 ALT 127 U/L (7-52) H 09/13/16 04:40 Alkaline Phosphatase 36 U/L (34-104) 09/13/16 04:40 Ammonia 56 umol/L (16-53) H 09/08/16 06:10 Troponin I 0.24 ng/mL (0.01-0.05) H* D 09/08/16 14:21 B-Natriuretic Peptide 2130.0 pg/mL (5.0-100.0) H 09/10/16 04:22 Total Protein 6.1 gm/dL (6.0-8.3) 09/13/16 04:40 Albumin 4.1 gm/dL (4.2-5.5) L 09/13/16 04:40 Globulin 2.0 gm/dL 09/13/16 04:40 Albumin/Globulin Ratio 2.1 (1.0-1.8) H 09/13/16 04:40 Urine Source [place] 09/06/16 16:45 Urine Color YELLOW 09/06/16 16:45 Urine Clarity CLEAR (CLEAR) 09/06/16 16:45 Urine pH 5.5 09/06/16 16:45 Ur Specific [place] 1.020 (1.005-1.030) 09/06/16 16:45 Urine Protein NEGATIVE mg/dL (NEGATIVE) 09/06/16 16:45 Urine Glucose (UA) NEGATIVE mg/dL (NEGATIVE) 09/06/16 16:45 Urine Ketones NEGATIVE mg/dL (NEGATIVE) 09/06/16 16:45 Urine Blood NEGATIVE (NEGATIVE) 09/06/16 16:45 Urine Nitrate NEGATIVE (NEGATIVE) 09/06/16 16:45 Urine Bilirubin NEGATIVE (NEGATIVE) 09/06/16 16:45 Urine Urobilinogen 0.2 E.U./dL (0.2 - 1.0) 09/06/16 16:45 Ur Leukocyte Esterase NEGATIVE (NEGATIVE) 09/06/16 16:45 Urine RBC NONE SEEN /hpf (0-5) 09/06/16 16:45 Urine WBC NONE SEEN /hpf (0-5) 09/06/16 16:45 Ur Epithelial Cells NONE SEEN /lpf (FEW) 09/06/16 16:45 Urine Bacteria NONE SEEN /hpf (NONE SEEN) 09/06/16 16:45 Vancomycin Trough 9.6 ug/mL (10-20) L 09/08/16 21:06 Random Vancomycin 22.3 ug/mL (5.0-40.0) 09/12/16 05:50 Digoxin 0.2 ng/ml (0.8-2.0) L 09/10/16 04:22 - Physical Exam Vitals and I&O: Vital Signs Temp 97.6 F 09/13/16 08:00 Pulse 109 09/13/16 13:35 Resp 19 09/13/16 09:00 BP 110/71 09/13/16 10:30 Pulse Ox 95 09/13/16 13:35 Intake & Output 09/12/16 09/13/16 09/13/16 18:59 06:59 18:59 Intake Total 6672.652 7209.855 556.343 Output Total 450 550 Balance 1068.099 978.855 556.343 Weight (lbs) 101.242 kg Intake: Intake, IV Amount 8885.573 3349.855 556.343 Diltiazem 125 mg In 125.000 Dextrose 5% 100 ml @ 5 MG /HR 5 mls/hr IV TITR [facility] Rx#:[id number] Norepinephrine 8 mg In 479.235 450.855 305.343 Dextrose 5% 250 ml @ 0 MCG/MIN IV TITR PRN Rx#: [id number] Phenylephrine HCl 10 mg 718.864 753 251 In Sodium Chloride 0.9% 250 ml @ 20 MCG/MIN 30.12 mls/hr IV TITR [facility] Rx#: [id number] cefTRIAXone 2 gm In 100 Sodium Chloride 0.9% 100 ml @ 100 mls/hr IV Q24H [facility] Rx#:[id number] metroNIDAZOLE 500mg/NS 100 200 100mL 500 mg In 100 ml @ 100 mls/hr IV Q8HR [facility] Rx #:[id number] Oral 0 Tube Feeding 0 TPN/PPN 120 Output: Urine 450 550 Stool 0 Active Medications: Current Medications Acetaminophen (Tylenol 650mg/20.3ml Suspension) 650 mg PO Q4H PRN PRN Reason: Fever > 101 Stop: 11/07/16 19:11 Last Admin: 09/11/16 21:33 Dose: 650 mg Albuterol/Ipratropium (Duoneb Neb) 3 ml HHN [id number] [facility] Stop: 11/05/16 22:59 Last Admin: 09/13/16 12:00 Dose: 3 ml Amiodarone HCl (Cordarone) 200 mg PO BID [facility] Stop: 11/08/16 13:29 Last Admin: 09/13/16 08:32 Dose: 200 mg Ascorbic Acid (Vitamin C) 500 mg PO DAILY [facility] Stop: 11/09/16 08:59 Last Admin: 09/13/16 08:31 Dose: 500 mg Budesonide (Pulmicort) 0.5 mg HHN BIDRT [facility] Stop: 11/06/16 18:59 Last Admin: 09/13/16 08:08 Dose: 0.5 mg Calcium/Vitamin D (Oscal W/Vitamin D) 1 tab PO DAILY [facility] Stop: 11/09/16 08:59 Last Admin: 09/13/16 08:32 Dose: 1 tab Carbidopa/Levodopa (Sinemet 25mg-100 Mg) 1 tab PO BID [facility] Stop: 11/08/16 16:59 Last Admin: 09/13/16 08:33 Dose: 1 tab Chlorhexidine Gluconate (Peridex) 15 ml MM 0800,2000 [facility] Stop: 11/06/16 19:59 Last Admin: 09/12/16 19:54 Dose: 15 ml Docusate Sodium (Colace) 200 mg PO QPM [facility] Stop: 11/11/16 16:59 Last Admin: 09/12/16 17:53 Dose: 200 mg Furosemide (Lasix) 20 mg IVP BID [facility] Stop: 11/12/16 16:59 Heparin Sodium (Porcine) (Heparin) 5,000 units SUBQ Q12HR [facility] Stop: 11/06/16 20:59 Last Admin: 09/13/16 08:34 Dose: 5,000 units Phenylephrine HCl 10 mg/ (Sodium Chloride) 251 mls @ 30.12 mls/hr IV TITR [facility]UL[facility]; 20 MCG/MIN PRN Reason: Protocol Stop: 11/07/16 00:59 Last Admin: 09/13/16 11:11 Dose: 40 mcg/min, 60.24 mls/hr Diltiazem HCl 125 mg/ Dextrose 125 mls @ 5 mls/hr IV TITR [facility]UL[facility]; 5 MG/HR PRN Reason: Protocol Stop: 11/08/16 18:59 Last Admin: 09/13/16 09:13 Dose: 5 mg/hr, 5 mls/hr Norepinephrine Bitartrate 8 mg (/ Dextrose) 258 mls @ 0 mls/hr IV TITR PRN; Protocol; 0 MCG/MIN PRN Reason: BP MAINTENANCE (PER PROTOCOL) Stop: 11/09/16 09:14 Last Admin: 09/13/16 14:16 Dose: 18 mcg/min, 34.83 mls/hr Vancomycin HCl 1.25 gm/ Sodium (Chloride) 250 mls @ 165 mls/hr IV Q24H [facility] Stop: 11/10/16 08:59 Last Infusion: 09/11/16 11:23 Dose: Infused Ceftriaxone Sodium 2 gm/ (Sodium Chloride) 100 mls @ 100 mls/hr IV Q24H [facility] Stop: 11/10/16 12:44 Last Admin: 09/13/16 13:07 Dose: 100 mls/hr Metronidazole (Flagyl) 500 mg in 100 mls @ 100 mls/hr IV Q8HR [facility] Stop: 11/10/16 12:59 Last Infusion: 09/13/16 05:43 Dose: Infused Insulin Aspart (Novolog Insulin Sliding Scale) 0 units SUBQ ACHS [facility] PRN Reason: Protocol Stop: 11/06/16 07:29 Last Admin: 09/13/16 11:44 Dose: 2 units Lactulose (Cephulac) 30 gm PO TID [facility] Stop: 11/12/16 14:14 Levothyroxine Sodium (Synthroid) 0.1 mg PO QDAC [facility] Stop: 11/09/16 07:29 Last Admin: 09/12/16 06:42 Dose: 0.1 mg Miscellaneous (Probiotic Screen) 1 ea PRN PRN PRN Reason: PROTOCOL Stop: 11/07/16 09:28 Miscellaneous (Vancomycin Iv Per Pharmacy) 1 ea PRN PRN PRN Reason: PROTOCOL Stop: 11/12/16 08:53 Pantoprazole Sodium (Protonix) 40 mg IVP BID [facility] Stop: 11/07/16 16:59 Last Admin: 09/13/16 08:33 Dose: 40 mg General: no acute distress, well developed, well nourished HEENT: atraumatic, normocephalic, PERRLA, EOMI, moist mucous membrane Neck: supple Cardiovascular: S1S2, regular Lungs: clear to auscultation bilaterally, clear to percussion Abdomen: soft, distended, no tender Extremities: edema, no cyanosis, no clubbing Neurological: awake, alert, oriented Skin: intact - Procedures Procedures: Procedures Procedure Code Date INSERT EMERGENCY AIRWAY 80961 09/06/16 INSERTION OF ENDOTRACHEAL AIRWAY INTO [place], VIA OPENING [id number] 09/06/16 RESPIRATORY VENTILATION, GREATER THAN 96 CONSECUTIVE HOURS [id number] 09/06/16 VENT MGMT INPAT INIT DAY 09/06/16 VENT MGMT INPAT SUBQ DAY 00604 09/06/16 Infectious Disease Assmt/Plan - Assessment Assessment: 1. Septic shock. severe sepsis. lactic acidosis. MOF. 2. Suspect pneumonia. Pneumococcal. 3. VDRF. 3. Aortic Stenosis. 4. Dementia. 5. H influenza ? colonizer versus pathogen. 6. Parkinson's disease. 7. DM2 8. HTN. 9. Constipated, ileus. - Plan Plan: Continue rocephin and flagyl. Start vanco IV. Get CT scan of the abdomen and pelvis. Nutritional Asmnt/Malnutr-PDOC - Dietary Evaluation Malnutrition Findings (Please click <Entered> for more info): Nutritional Asmnt/Malnutrition Start: 09/07/16 13: 01 Text: Status: Complete Freq: Document 09/07/16 13:01 [facility] (Rec: 09/07/16 13:17 [email or web address]) Nutritional Asmnt/Malnutrition Patient General Information Nutritional Screening High Risk Screening Diagnosis Aspiration pneumonia, septic shock, acute resp failure, acute renal failure Pertinent Medical Hx/Surgical Hx HTN, CVA right sided weakness, dementia Subjective Information 86 year old male. Pt seen resting with eyes closed. RT arriving at bedside for intubation during visit. Per RN notes, pt was intubated at 10:30am. Current Diet Order/ Nutrition Support No order. 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 Estimated Nutritional Goals Calories/Kcals/Kg IBW 166lb/75.5kg Kcals Calculated 2114-2416kcal (28-32kcal/kg) Protein g/kg: IBW Protein Calculated 91-136g (1.2-1.8g/kg, monitor acute renal, septic shock and PNA) Fluid: ml 2114-2416ml (1ml/kcal) Nutritional Problem 1. Problem Problem Increased kcal and prot needs related to Etiology hypermetabolic state aeb Signs/Symptoms: septic shock, aspiration penumonia Intervention/Recommendation Comments 1. No nutrition intervention at this time until pt is medically stable, pt newly intubated today. RD to follow tomorrow. Expected Outcomes/Goals Expected Outcomes/Goals 1. Pt to meet at least 75% of estimated nutritional needs.
[2016-09-13] MEDS: Docusate Sodium 100 mg/10 mL UD PO SCH (17:07)
[2016-09-13] MEDS: Lactulose 10 Gm/15 mL 30mL UDC PO SCH ×2 (17:08→20:45)
--- NOTE | 2016-09-14 02:41 | Progress Notes ---
DATE: 09/13/2016 PULMONARY PROGRESS NOTE PROBLEM LIST: 1. Persistent respiratory failure. 2. Congestive heart failure with hypotension persisting. 3. Metabolic syndrome with poor response periodically. SYMPTOMS: None. Noncommunicative. Not in any acute distress. The patient is still on some multiple vasopressors. PHYSICAL EXAMINATION: GENERAL: No respiratory distress. VITAL SIGNS: Temperature is 98-99, heart rate is 100-120, blood pressure is around 110, and saturation 95% on 30% of oxygen. NECK: Veins not visualized. CHEST: Shows diminished air entry without any significant adventitious breath sounds. HEART: Regular. ABDOMEN: Slightly distended. Hyperactive bowel sounds. EXTREMITIES: Shows poor pulsations with significant ischemic changes. LABORATORY DATA: The patient's white count is 23,000 and hemoglobin 9.5. ABG shows compensated metabolic acidemia and electrolytes shows BUN 72, creatinine 2.1 and mild degree of elevation of liver profile. Chest x-ray shows not much change, bilateral effusion with cardiomegaly. ASSESSMENT: The patient has intractable congestive heart failure, persistent hypotension, elevated white count, exact etiology is not clear. PLANS AND SUGGESTIONS: We will continue supportive care. Overall prognosis appears to be very poor. JOB# [id number]
[2016-09-14] MEDS: metroNIDAZOLE 500mg/NS 100mL 500 MG/100 ML BAG IV SCH ×2 (05:00→13:02)
[2016-09-14 05:38] LABS: HEMATOCRIT 28.3 % (39.0-49.0); HEMOGLOBIN 9.4 gm/dL (12.6-17.4); MEAN CELL VOLUME 93.1 fl (80-99); MEAN CORPUSCULAR HGB CONC 33.3 pg (28.0-36.0); MEAN PLATELET VOLUME 14.5 fl; PLATELET COUNT 91 Th/cmm (150-400); RED BLOOD COUNT 3.04 Mil/cmm (3.80-5.80); RED CELL DISTRIBUTION WIDTH 19.4 % (11.5-20.0)
[2016-09-14 05:45] LABS: ALB/GLOB RATIO 1.9 (1.0-1.8); ALKALINE PHOSPHATASE 37 U/L (34-104); ANION GAP 14.3 (7.0-16.0); BILIRUBIN,TOTAL 1.7 mg/dL (0.3-1.0); BUN - UREA NITROGEN 72 mg/dL (7-25); CALCIUM SERUM 8.5 mg/dL (8.6-10.3); CARBON DIOXIDE 13.7 mEq/L (21.0-31.0); CHLORIDE 119 mEq/L (98-107); GLUCOSE 250 mg/dL (70-105); INR 1.57 (0.5-1.4); MAGNESIUM 2.7 mg/dL (1.9-2.7); PHOSPHOROUS 4.7 mg/dL (2.5-5.0); PROTHROMBIN TIME (TEST) 16.7 SECONDS (9.5-11.5); SGOT 220 U/L (13-39); SGPT/ALT 164 U/L (7-52); SODIUM SERUM 143 mEq/L (136-145)
[2016-09-14 06:35] LABS: WHITE BLOOD COUNT 18.9 Th/cmm (4.8-10.8)
[2016-09-14] MEDS: INSULIN ASPART SLIDING SCALE 100 UNITS/ML UNIT SUBQ SCH ×4 (06:56→23:19)
[2016-09-14] MEDS: Budesonide 0.5 Mg/2 mL Ud HHN SCH ×2 (07:09→18:55)
[2016-09-14] MEDS: Albuterol/Ipratropium Neb 3 ML AERS HHN SCH ×4 (07:09→18:55)
[2016-09-14 08:34] LABS: BE(B) -7.8 mEq/L (-3.0-3.0); HCO3 18.7 mEq/L (20.0-26.0); pH 7.35 (7.35-7.45)
[2016-09-14 08:35] LABS: ABG SOURCE Arterial; ALLEN TEST YES; FIO2 30; MECH RATE 14; MECH VT 600; PS 15
[2016-09-14 09:18] LABS: ANISOCYTOSIS 1+; BAND NEUTROPHILE 3 % (0-10); CORRECTED WBC 12.3 Th/cmm; NEUTROPHILS 90 % (40-80); PLATELET ESTIMATE DECREASED PLATELETS (NORMAL); PLATELET MORPHOLOGY GIANT PLATELETS SEEN (NORMAL); POIKILOCYTOSIS 1+; POLYCHROMASIA 1+; TOTAL CELLS COUNTED 100
[2016-09-14] MEDS: Calcium Carb/Vit D 500 mg/200 U Tab PO SCH (09:43)
[2016-09-14] MEDS: Lactulose 10 Gm/15 mL 30mL UDC PO SCH ×3 (09:44→20:59)
--- NOTE | 2016-09-14 09:56 | Infectious Disease Prog Note ---
Infectious Disease Subjective - Review of Systems Service Date: 09/14/16 Subjective: No new change. There is no fever. Dr Bartlett has suggested HD. Infectious Disease Objective - Results Result Diagrams: 09/14/16 04:45 09/14/16 04:45 Recent Labs: Laboratory Last Values WBC 18.9 Th/cmm (4.8-10.8) H D 09/14/16 04:45 Corrected WBC (auto) 12.3 Th/cmm 09/14/16 04:45 RBC 3.04 Mil/cmm (3.80-5.80) L 09/14/16 04:45 Hgb 9.4 gm/dL (12.6-17.4) L 09/14/16 04:45 Hct 28.3 % (39.0-49.0) L 09/14/16 04:45 MCV 93.1 fl (80-99) 09/14/16 04:45 MCH 31.0 pg (27.0-31.0) 09/14/16 04:45 MCHC Differential 33.3 pg (28.0-36.0) 09/14/16 04:45 RDW 19.4 % (11.5-20.0) 09/14/16 04:45 Plt Count 91 Th/cmm (150-400) L 09/14/16 04:45 MPV 14.5 fl 09/14/16 04:45 Neutrophils % 70.0 % (40.0-80.0) 09/12/16 05:50 Band Neutrophils % 3 % (0-10) 09/14/16 04:45 Lymphocytes % 26.8 % (20.0-50.0) 09/12/16 05:50 Monocytes % 2.9 % (2.0-10.0) 09/12/16 05:50 Eosinophils % 0.1 % (0.0-5.0) 09/12/16 05:50 Basophils % 0.2 % (0.0-2.0) 09/12/16 05:50 Neutrophils (Manual) 90 % (40-80) H 09/14/16 04:45 Lymphocytes 4 % (20-50) L 09/14/16 04:45 Monocytes 3 % (2-10) 09/14/16 04:45 Eosinophils 1 % (0-5) 09/09/16 04:50 Metamyelocytes 1 % (0-0) H 09/09/16 04:50 Nucleated RBCs 54.0 % (0-0) H 09/14/16 04:45 Toxic Granulation 2+ 09/13/16 04:40 Platelet Estimate DECREASED PLATELETS (NORMAL) 09/14/16 04:45 Platelet Morphology GIANT PLATELETS SEEN (NORMAL) 09/14/16 04:45 Polychromasia 1+ 09/14/16 04:45 Poikilocytosis 1+ 09/14/16 04:45 Anisocytosis 1+ 09/14/16 04:45 RBC Morph Micro Appear ABNORMAL (NORMAL) 09/14/16 04:45 Plt Count 91 Th/cmm (150-750) L 09/14/16 04:45 PT 16.7 SECONDS (9.5-11.5) H 09/14/16 04:45 INR 1.57 (0.5-1.4) H 09/14/16 04:45 PTT (Actin FS) 33.4 SECONDS (26.0-38.0) 09/14/16 04:45 Fibrinogen 142.0 mg/dL (200.0-400.0) L 09/14/16 04:45 D-Dimer 2230 ng/mL (100-400) H 09/14/16 04:45 Specimen Source Arterial 09/14/16 08:15 Sample Site Right Radial 09/14/16 08:15 pH 7.35 (7.35-7.45) 09/14/16 08:15 pCO2 30.0 mmHg (35.0-45.0) L 09/14/16 08:15 pO2 70.0 mmHg (80.0-100.0) L 09/14/16 08:15 HCO3 18.7 mEq/L (20.0-26.0) L 09/14/16 08:15 Base Excess -7.8 mEq/L (-3.0-3.0) L 09/14/16 08:15 O2 Saturation 93.0 % (92.0-100.0) 09/14/16 08:15 Rancho Test YES 09/14/16 08:15 Vent Rate 14 09/14/16 08:15 Inspired O2 30 09/14/16 08:15 Tidal Volume 600 09/14/16 08:15 PEEP 0 09/14/16 08:15 Pressure (ins/psv/peep) 15 09/14/16 08:15 Critical Value NHUNG 09/14/16 08:15 Sodium 143 mEq/L (136-145) 09/14/16 04:45 Potassium 4.0 mEq/L (3.5-5.1) 09/14/16 04:45 Chloride 119 mEq/L (98-107) H 09/14/16 04:45 Carbon Dioxide 13.7 mEq/L (21.0-31.0) L 09/14/16 04:45 Anion Gap 14.3 (7.0-16.0) 09/14/16 04:45 BUN 72 mg/dL (7-25) H 09/14/16 04:45 Creatinine 2.0 mg/dL (0.7-1.3) H 09/14/16 04:45 Est GFR ( Amer) TNP 09/14/16 04:45 Est GFR (Non-Af Amer) TNP 09/14/16 04:45 BUN/Creatinine Ratio 36.0 09/14/16 04:45 Glucose 250 mg/dL (70-105) H 09/14/16 04:45 POC Glucose 207 MG/DL (70 - 105) H 09/14/16 06:49 Hemoglobin A1c % 6.2 % (4.0-6.0) H 09/07/16 04:37 Whole Bld Lactic Acid 1.93 mmol/L (0.60-1.99) 09/11/16 08:00 Calcium 8.5 mg/dL (8.6-10.3) L 09/14/16 04:45 Phosphorus 4.7 mg/dL (2.5-5.0) 09/14/16 04:45 Magnesium 2.7 mg/dL (1.9-2.7) 09/14/16 04:45 Total Bilirubin 1.7 mg/dL (0.3-1.0) H 09/14/16 04:45 Direct Bilirubin 0.52 mg/dL (0.0-0.2) H 09/10/16 04:22 AST 220 U/L (13-39) H 09/14/16 04:45 ALT 164 U/L (7-52) H 09/14/16 04:45 Alkaline Phosphatase 37 U/L (34-104) 09/14/16 04:45 Ammonia 105 umol/L (16-53) H 09/14/16 04:45 Troponin I 0.24 ng/mL (0.01-0.05) H* D 09/08/16 14:21 B-Natriuretic Peptide 2130.0 pg/mL (5.0-100.0) H 09/10/16 04:22 Total Protein 6.0 gm/dL (6.0-8.3) 09/14/16 04:45 Albumin 3.9 gm/dL (4.2-5.5) L 09/14/16 04:45 Globulin 2.1 gm/dL 09/14/16 04:45 Albumin/Globulin Ratio 1.9 (1.0-1.8) H 09/14/16 04:45 Triglycerides 76 mg/dL (<150) 09/14/16 04:45 Urine Source [place] 09/06/16 16:45 Urine Color YELLOW 09/06/16 16:45 Urine Clarity CLEAR (CLEAR) 09/06/16 16:45 Urine pH 5.5 09/06/16 16:45 Ur Specific [place] 1.020 (1.005-1.030) 09/06/16 16:45 Urine Protein NEGATIVE mg/dL (NEGATIVE) 09/06/16 16:45 Urine Glucose (UA) NEGATIVE mg/dL (NEGATIVE) 09/06/16 16:45 Urine Ketones NEGATIVE mg/dL (NEGATIVE) 09/06/16 16:45 Urine Blood NEGATIVE (NEGATIVE) 09/06/16 16:45 Urine Nitrate NEGATIVE (NEGATIVE) 09/06/16 16:45 Urine Bilirubin NEGATIVE (NEGATIVE) 09/06/16 16:45 Urine Urobilinogen 0.2 E.U./dL (0.2 - 1.0) 09/06/16 16:45 Ur Leukocyte Esterase NEGATIVE (NEGATIVE) 09/06/16 16:45 Urine RBC NONE SEEN /hpf (0-5) 09/06/16 16:45 Urine WBC NONE SEEN /hpf (0-5) 09/06/16 16:45 Ur Epithelial Cells NONE SEEN /lpf (FEW) 09/06/16 16:45 Urine Bacteria NONE SEEN /hpf (NONE SEEN) 09/06/16 16:45 Vancomycin Trough 9.6 ug/mL (10-20) L 09/08/16 21:06 Random Vancomycin 22.3 ug/mL (5.0-40.0) 09/12/16 05:50 Digoxin 0.2 ng/ml (0.8-2.0) L 09/10/16 04:22 - Physical Exam Vitals and I&O: Vital Signs Temp 97.5 F 09/14/16 06:00 Pulse 112 09/14/16 09:01 Resp 18 09/14/16 07:00 BP 107/80 09/14/16 07:00 Pulse Ox 97 09/14/16 09:01 Intake & Output 09/13/16 09/14/16 09/14/16 18:59 06:59 18:59 Intake Total 3837.761 9303.234 233.932 Output Total 650 1100 Balance 861.843 236.234 233.932 Intake: Intake, IV Amount 4792.512 4105.234 233.932 Norepinephrine 8 mg In 305.343 483.234 Dextrose 5% 250 ml @ 0 MCG/MIN IV TITR PRN Rx#: [id number] Phenylephrine HCl 10 mg 502 753 233.932 In Sodium Chloride 0.9% 250 ml @ 20 MCG/MIN 30.12 mls/hr IV TITR [facility] Rx#: [id number] Vancomycin HCl 1.25 gm In 254.5 Sodium Chloride 0.9% 250 ml @ 165 mls/hr IV Q24H [facility] Rx#:[id number] cefTRIAXone 2 gm In 100 Sodium Chloride 0.9% 100 ml @ 100 mls/hr IV Q24H [facility] Rx#:[id number] metroNIDAZOLE 500mg/NS 100.000 100 100mL 500 mg In 100 ml @ 100 mls/hr IV Q8HR [facility] Rx #:[id number] Oral 0 Tube Feeding 250 Output: Gastric Drainage 100 Urine 650 1000 Other: # Bowel Movements 0 Active Medications: Current Medications Acetaminophen (Tylenol 650mg/20.3ml Suspension) 650 mg PO Q4H PRN PRN Reason: Fever > 101 Stop: 11/07/16 19:11 Last Admin: 09/11/16 21:33 Dose: 650 mg Albuterol/Ipratropium (Duoneb Neb) 3 ml HHN [id number] [facility] Stop: 11/05/16 22:59 Last Admin: 09/14/16 07:09 Dose: 3 ml Amiodarone HCl (Cordarone) 200 mg PO BID JULIO Stop: 11/08/16 13:29 Last Admin: 09/13/16 08:32 Dose: 200 mg Ascorbic Acid (Vitamin C) 500 mg PO DAILY JULIO Stop: 11/09/16 08:59 Last Admin: 09/14/16 09:43 Dose: 500 mg Budesonide (Pulmicort) 0.5 mg HHN BIDRT [facility]ULIO Stop: 11/06/16 18:59 Last Admin: 09/14/16 07:09 Dose: 0.5 mg Calcium/Vitamin D (Oscal W/Vitamin D) 1 tab PO DAILY JULIO Stop: 11/09/16 08:59 Last Admin: 09/14/16 09:43 Dose: 1 tab Carbidopa/Levodopa (Sinemet 25mg-100 Mg) 1 tab PO BID JULIO Stop: 11/08/16 16:59 Last Admin: 09/14/16 09:44 Dose: 1 tab Chlorhexidine Gluconate (Peridex) 15 ml MM 0800,2000 JULIO Stop: 11/06/16 19:59 Last Admin: 09/13/16 20:20 Dose: 15 ml Docusate Sodium (Colace) 200 mg PO QPM [facility] Stop: 11/11/16 16:59 Last Admin: 09/13/16 17:07 Dose: 200 mg Furosemide (Lasix) 20 mg IVP BID JULIO Stop: 11/12/16 16:59 Last Admin: 09/14/16 09:43 Dose: 20 mg Heparin Sodium (Porcine) (Heparin) 5,000 units SUBQ Q12HR [facility] Stop: 11/06/16 20:59 Last Admin: 09/14/16 09:45 Dose: 5,000 units Phenylephrine HCl 10 mg/ (Sodium Chloride) 251 mls @ 30.12 mls/hr IV TITR JULIO; 20 MCG/MIN PRN Reason: Protocol Stop: 11/07/16 00:59 Last Admin: 09/14/16 09:38 Dose: 40 mcg/min, 60.24 mls/hr Diltiazem HCl 125 mg/ Dextrose 125 mls @ 5 mls/hr IV TITR JULIO; 5 MG/HR PRN Reason: Protocol Stop: 11/08/16 18:59 Last Admin: 09/13/16 09:13 Dose: 5 mg/hr, 5 mls/hr Norepinephrine Bitartrate 8 mg (/ Dextrose) 258 mls @ 0 mls/hr IV TITR PRN; Protocol; 0 MCG/MIN PRN Reason: BP MAINTENANCE (PER PROTOCOL) Stop: 11/09/16 09:14 Last Admin: 09/14/16 06:43 Dose: 16 mcg/min, 30.96 mls/hr Ceftriaxone Sodium 2 gm/ (Sodium Chloride) 100 mls @ 100 mls/hr IV Q24H [facility]ULIO Stop: 11/10/16 12:44 Last Infusion: 09/13/16 14:10 Dose: Infused Metronidazole (Flagyl) 500 mg in 100 mls @ 100 mls/hr IV Q8HR [facility] Stop: 11/10/16 12:59 Last Admin: 09/14/16 05:00 Dose: 100 mls/hr Vancomycin HCl 1.25 gm/ Sodium (Chloride) 250 mls @ 165 mls/hr IV Q24H [facility] Stop: 11/13/16 17:59 Insulin Aspart (Novolog Insulin Sliding Scale) 0 units SUBQ ACHS JULIO PRN Reason: Protocol Stop: 11/06/16 07:29 Last Admin: 09/14/16 06:56 Dose: Not Given Lactulose (Cephulac) 30 gm PO TID [facility] Stop: 11/12/16 14:14 Last Admin: 09/14/16 09:44 Dose: 20 gm Levothyroxine Sodium (Synthroid) 0.1 mg PO QDAC [facility] Stop: 11/09/16 07:29 Last Admin: 09/12/16 06:42 Dose: 0.1 mg Miscellaneous (Probiotic Screen) 1 ea PRN PRN PRN Reason: PROTOCOL Stop: 11/07/16 09:28 Miscellaneous (Vancomycin Iv Per Pharmacy) 1 ea PRN PRN PRN Reason: PROTOCOL Stop: 11/12/16 08:53 Miscellaneous (Tpn Per Pharmacy) 1 [facility] PRN PRN PRN Reason: PROTOCOL Stop: 11/13/16 15:59 Pantoprazole Sodium (Protonix) 40 mg IVP BID [facility] Stop: 11/07/16 16:59 Last Admin: 09/14/16 09:43 Dose: 40 mg General: no acute distress, well developed, well nourished HEENT: atraumatic, normocephalic, PERRLA, EOMI, moist mucous membrane Neck: supple, no thyromegaly Cardiovascular: S1S2, regular Lungs: clear to auscultation bilaterally, clear to percussion Abdomen: soft, no tender, no distended Extremities: edema, no cyanosis, no clubbing Neurological: awake Skin: intact - Procedures Procedures: Procedures Procedure Code Date INSERT EMERGENCY AIRWAY 26385 09/06/16 INSERTION OF ENDOTRACHEAL AIRWAY INTO TRACHEA, VIA OPENING [id number] 09/06/16 RESPIRATORY VENTILATION, GREATER THAN 96 CONSECUTIVE HOURS [id number] 09/06/16 VENT MGMT INPAT INIT DAY 09/06/16 VENT MGMT INPAT SUBQ DAY 09/06/16 Infectious Disease Assmt/Plan - Assessment Assessment: 1. Septic shock. severe sepsis. . MOF. 2. Suspect pneumonia. Pneumococcal. 3. VDRF. 3. Aortic Stenosis. 4. Dementia. 5. H influenza ? colonizer versus pathogen. 6. Parkinson's disease. 7. DM2 8. HTN. 9. Constipated, ileus. 10. Lactic acidosis. Improved. 11. Renal insufficiency with anasarca. - Plan Plan: Continue rocephin and flagyl. Start vanco IV. Patient will receive HD. Nutritional Asmnt/Malnutr-PDOC - Dietary Evaluation Malnutrition Findings (Please click <Entered> for more info): Nutritional Asmnt/Malnutrition Start: 09/07/16 13: 01 Text: Status: Complete Freq: Document 09/07/16 13:01 [facility] (Rec: 09/07/16 13:17 [facility] [id number]) Nutritional Asmnt/Malnutrition Patient General Information Nutritional Screening High Risk Screening Diagnosis Aspiration pneumonia, septic shock, acute resp failure, acute renal failure Pertinent Medical Hx/Surgical Hx HTN, CVA right sided weakness, dementia Subjective Information 86 year old male. Pt seen resting with eyes closed. RT arriving at bedside for intubation during visit. Per RN notes, pt was intubated at 10:30am. Current Diet Order/ Nutrition Support No order. Pertinent Medications D5, Novolog, Solu-Medrol, Vancomycin Pertinent Labs 09/07: potassium 5.8H, BUN 88H (improving), creatiine 2 ( improving), gulcose 355H, A1c 6.2H Nutritional Hx/Data Height 1.78 m Height (Calculated Centimeters) 177.8 Current Weight (lbs) 85.956 kg Weight (Calculated Kilograms) 86.0 Weight (Calculated Grams) 82732.8 Danielson Body Weight 166 Weight Status Overweight GI Symptoms Skin Integrity/Comment: Ricardo Womack. 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 Estimated Nutritional Goals Calories/Kcals/Kg IBW 166lb/75.5kg Kcals Calculated 2114-2416kcal (28-32kcal/kg) Protein g/kg: IBW Protein Calculated 91-136g (1.2-1.8g/kg, monitor acute renal, septic shock and PNA) Fluid: ml 2114-2416ml (1ml/kcal) Nutritional Problem 1. Problem Problem Increased kcal and prot needs related to Etiology hypermetabolic state aeb Signs/Symptoms: septic shock, aspiration penumonia Intervention/Recommendation Comments 1. No nutrition intervention at this time until pt is medically stable, pt newly intubated today. RD to follow tomorrow. Expected Outcomes/Goals Expected Outcomes/Goals 1. Pt to meet at least 75% of estimated nutritional needs.
--- NOTE | 2016-09-14 12:41 | Diagnostic Imaging Report ---
CHEST X-RAY: AP view INDICATION: Jace catheter placement COMPARISON: Chest x-ray on 09/13/2016 FINDINGS: Right dialysis catheter is in place with tip in SVC. Remaining support devices are stable. Findings of CHF are seen with bilateral effusions and infiltrates, right greater than left. Cardiomegaly is noted. No evidence of pneumothorax. IMPRESSION: Interval right dialysis catheter placement with tip in the cavoatrial junction. No evidence of pneumothorax. CHF with bilateral effusions and infiltrates.
[2016-09-14] MEDS: cefTRIAXone 2 GM in Sodium Chloride 0.9% 100 ML IV SCH (12:47)
[2016-09-14] MEDS ORDERED: Lactulose 10 Gm/15 mL 30mL UDC PO ONE (14:29)
--- NOTE | 2016-09-14 16:11 | Consultation ---
DATE OF CONSULTATION: 09/14/2016 REFERRING PHYSICIAN: ____. REASON FOR CONSULTATION: Acute renal failure. Thank you for referring this patient to me. HISTORY OF PRESENT ILLNESS: This is an 86-year-old male admitted because of pneumonia, septic shock, dehydration and acute renal failure. The patient has been seen by multiple consultants including Hematology, Nephrology, Infectious Disease animal nutrition consultant and ____ undertaker helper. LABORATORY STUDIES: Today, WBC is 18,900 with hemoglobin of 9.4, platelet count is low at 91,000. The chemistry, BUN is 72 with creatinine of 2.0. PHYSICAL EXAMINATION: The patient is intubated and nonresponsive except to pain stimuli. He has PICC line in the left upper extremity. We will place Jace catheter in the right subclavian location. JOB# [id number]
[2016-09-14] MEDS: Docusate Sodium 100 mg/10 mL UD PO SCH (17:28)
[2016-09-14] MEDS: [UNRECOGNIZED DRUG - OTHER] IV SCH (17:44)
[2016-09-14] MEDS: MULTIVITAMIN IV SCH (17:44)
[2016-09-14] MEDS: DEXTROSE 70% IV SCH (17:44)
[2016-09-14] MEDS: INSULIN HUMAN REGULAR IV SCH (17:44)
--- NOTE | 2016-09-14 19:06 | Operative Report ---
DATE OF SURGERY: 09/14/2016 PREOPERATIVE DIAGNOSES: 1. Acute renal failure, on chronic renal disease. 2. . 3. Status post cerebrovascular accident. 4. Respiratory failure, on intubation. POSTOPERATIVE DIAGNOSES: 1. Acute renal failure, on chronic renal disease. 2. . 3. Status post cerebrovascular accident. 4. Respiratory failure, on intubation. OPERATION DONE: Insertion of Jace catheter, right subclavian vein, under ultrasound guidance. The patient's family was contact, but no response. Two physicians signed a consent for the emergency procedure. PROCEDURE: The right chest was prepped with ChloraPrep and draped in an appropriate manner. A 1% lidocaine was used to infiltrate the chest at the area identified on ultrasound. An incision was made and a size 18 needle was used to locate the vein where to do a puncture. The guidewire was inserted, the dilator, and then the triple-lumen catheter. This anchored to the chest wall with 3-0 silk. A portable chest x-ray will be ordered JOB# [id number]
[2016-09-14] MEDS: Chlorhexidine Gluconate 0.12% 15mL Mouthwash MM SCH (19:49)
[2016-09-15] MEDS: Levothyroxine 0.1 Mg Tab PO SCH (06:35)
[2016-09-15] MEDS: INSULIN ASPART SLIDING SCALE 100 UNITS/ML UNIT SUBQ SCH ×4 (06:43→21:19)
[2016-09-15] MEDS: Albuterol/Ipratropium Neb 3 ML AERS HHN SCH ×4 (06:58→18:37)
[2016-09-15] MEDS: Budesonide 0.5 Mg/2 mL Ud HHN SCH ×2 (06:58→18:37)
[2016-09-15] MEDS: Chlorhexidine Gluconate 0.12% 15mL Mouthwash MM SCH ×2 (08:00→20:19)
[2016-09-15 08:43] LABS: MEAN CORPUSCULAR HEMOGLOBIN 30.7 pg (27.0-31.0)
[2016-09-15 08:47] LABS: HEMATOCRIT 25.9 % (39.0-49.0); HEMOGLOBIN 8.6 gm/dL (12.6-17.4); MEAN CELL VOLUME 92.7 fl (80-99); MEAN CORPUSCULAR HGB CONC 33.1 pg (28.0-36.0); MEAN PLATELET VOLUME 12.3 fl; PLATELET COUNT 84 Th/cmm (150-400); RED BLOOD COUNT 2.79 Mil/cmm (3.80-5.80); RED CELL DISTRIBUTION WIDTH 19.3 % (11.5-20.0)
[2016-09-15 09:02] LABS: WHITE BLOOD COUNT 14.5 Th/cmm (4.8-10.8)
[2016-09-15 09:06] LABS: INR 1.62 (0.5-1.4); PROTHROMBIN TIME (TEST) 17.3 SECONDS (9.5-11.5)
[2016-09-15 09:07] LABS: MAGNESIUM 2.5 mg/dL (1.9-2.7)
[2016-09-15 09:08] LABS: ANION GAP 10.5 (7.0-16.0); BUN - UREA NITROGEN 71 mg/dL (7-25); BUN/CREATININE RATIO 33.8; CALCIUM SERUM 8.2 mg/dL (8.6-10.3); CARBON DIOXIDE 18.9 mEq/L (21.0-31.0); CHLORIDE 117 mEq/L (98-107); CREATININE - SERUM 2.1 mg/dL (0.7-1.3); GLUCOSE 284 mg/dL (70-105); POTASSIUM SERUM 3.4 mEq/L (3.5-5.1); SODIUM SERUM 143 mEq/L (136-145)
[2016-09-15 09:19] LABS: BAND NEUTROPHILE 3 % (0-10); CORRECTED WBC 13.8 Th/cmm; EOSINOPHIL 1 % (0-5); HYPOCHROMIA 1+; NEUTROPHILS 91 % (40-80); PLATELET ESTIMATE SLIGHT DECREASED (NORMAL); POLYCHROMASIA 1+; TOTAL CELLS COUNTED 100
[2016-09-15 09:27] LABS: ALB/GLOB RATIO 1.7 (1.0-1.8); BILIRUBIN,DIRECT 0.85 mg/dL (0.0-0.2); BILIRUBIN,TOTAL 1.3 mg/dL (0.3-1.0)
[2016-09-15 10:21] LABS: ABG SOURCE Arterial; BE(B) -5.9 mEq/L (-3.0-3.0); HCO3 20.2 mEq/L (20.0-26.0); pH 7.33 (7.35-7.45)
[2016-09-15 10:22] LABS: ALLEN TEST PASS; CRITICAL VALUES REPORTED BY PW; FIO2 30; MECH RATE 14; MECH VT 600; PS 15
[2016-09-15] MEDS: Calcium Carb/Vit D 500 mg/200 U Tab PO SCH (10:28)
[2016-09-15] MEDS: Lactulose 10 Gm/15 mL 30mL UDC PO SCH ×3 (10:31→21:19)
--- NOTE | 2016-09-15 11:11 | Progress Notes ---
DATE: 09/14/2016 PROBLEM LIST: 1. Acute respiratory failure. 2. Acute congestive heart failure with cardiac arrhythmia. 3. ____ acute renal failure. 4. Encephalopathy. SYMPTOMS: None. The patient is quite obtunded, has no respiratory distress, etc. Still on multiple vasopressor meds.. PHYSICAL EXAMINATION: GENERAL: Still on vent with SIMV 14, temperature is 97.7, heart rate is 110 to 120, blood pressure 90s and the patient's saturation is in mid 97-98% on 30%. NECK: Veins not visualized. CHEST: Shows marked diminished air entry with occasional rhonchi. HEART: Regular. ABDOMEN: Still distended, soft, nontender. LABORATORY DATA: The patient's white count is 18.7, hemoglobin 9.4, and the patient's platelet is 91,000. ABG shows pO2 of 70, this is on 30% with SIMV mode, and the patient's creatinine is 2.0, BUN is 72. ASSESSMENT: The patient is doing poorly with multisystem failure. PLANS AND SUGGESTIONS: We will continue supportive care. We will give another laxative today to see how he does and go from there. JOB# [id number]
--- NOTE | 2016-09-15 14:11 | Infectious Disease Prog Note ---
Infectious Disease Subjective - Review of Systems Service Date: 09/15/16 Subjective: No new change. There is no fever. Infectious Disease Objective - Results Result Diagrams: 09/15/16 08:30 09/15/16 08:30 Recent Labs: Laboratory Last Values WBC 14.5 Th/cmm (4.8-10.8) H D 09/15/16 08:30 Corrected WBC (auto) 13.8 Th/cmm 09/15/16 08:30 RBC 2.79 Mil/cmm (3.80-5.80) L 09/15/16 08:30 Hgb 8.6 gm/dL (12.6-17.4) L 09/15/16 08:30 Hct 25.9 % (39.0-49.0) L 09/15/16 08:30 MCV 92.7 fl (80-99) 09/15/16 08:30 MCH 30.7 pg (27.0-31.0) 09/15/16 08:30 MCHC Differential 33.1 pg (28.0-36.0) 09/15/16 08:30 RDW 19.3 % (11.5-20.0) 09/15/16 08:30 Plt Count 84 Th/cmm (150-400) L 09/15/16 08:30 MPV 12.3 fl 09/15/16 08:30 Neutrophils % 70.0 % (40.0-80.0) 09/12/16 05:50 Band Neutrophils % 3 % (0-10) 09/15/16 08:30 Lymphocytes % 26.8 % (20.0-50.0) 09/12/16 05:50 Monocytes % 2.9 % (2.0-10.0) 09/12/16 05:50 Eosinophils % 0.1 % (0.0-5.0) 09/12/16 05:50 Basophils % 0.2 % (0.0-2.0) 09/12/16 05:50 Neutrophils (Manual) 91 % (40-80) H 09/15/16 08:30 Lymphocytes 4 % (20-50) L 09/15/16 08:30 Monocytes 1 % (2-10) L 09/15/16 08:30 Eosinophils 1 % (0-5) 09/15/16 08:30 Metamyelocytes 1 % (0-0) H 09/09/16 04:50 Nucleated RBCs 5.0 % (0-0) H 09/15/16 08:30 Vacuolated Monocytes 09/14/16 04:45 Hypochromia 1+ 09/15/16 08:30 Toxic Granulation 2+ 09/13/16 04:40 Platelet Estimate SLIGHT DECREASED (NORMAL) 09/15/16 08:30 Platelet Morphology GIANT PLATELETS SEEN (NORMAL) 09/14/16 04:45 Polychromasia 1+ 09/15/16 08:30 Poikilocytosis 1+ 09/14/16 04:45 Anisocytosis 1+ 09/14/16 04:45 RBC Morph Micro Appear ABNORMAL (NORMAL) 09/14/16 04:45 Smear Path Review SEE BELOW 09/14/16 04:45 Plt Count 84 Th/cmm (150-750) L 09/15/16 08:30 PT 17.3 SECONDS (9.5-11.5) H 09/15/16 08:30 INR 1.62 (0.5-1.4) H 09/15/16 08:30 PTT (Actin FS) 39.8 SECONDS (26.0-38.0) H 09/15/16 08:30 Fibrinogen 122.0 mg/dL (200.0-400.0) L 09/15/16 08:30 D-Dimer 2480 ng/mL (100-400) H 09/15/16 08:30 Specimen Source Arterial 09/15/16 09:45 Sample Site Right Radial 09/15/16 09:45 pH 7.33 (7.35-7.45) L 09/15/16 09:45 pCO2 37.0 mmHg (35.0-45.0) 09/15/16 09:45 pO2 68.0 mmHg (80.0-100.0) L 09/15/16 09:45 HCO3 20.2 mEq/L (20.0-26.0) 09/15/16 09:45 Base Excess -5.9 mEq/L (-3.0-3.0) L 09/15/16 09:45 O2 Saturation 92.0 % (92.0-100.0) 09/15/16 09:45 Rancho Test PASS 09/15/16 09:45 Vent Rate 14 09/15/16 09:45 Inspired O2 30 04/29/17 09:45 Tidal Volume 600 09/15/16 09:45 PEEP 0 09/14/16 08:15 Pressure (ins/psv/peep) 15 09/15/16 09:45 Critical Value PW 09/15/16 09:45 Sodium 143 mEq/L (136-145) 09/15/16 08:30 Potassium 3.4 mEq/L (3.5-5.1) L 09/15/16 08:30 Chloride 117 mEq/L (98-107) H 09/15/16 08:30 Carbon Dioxide 18.9 mEq/L (21.0-31.0) L 09/15/16 08:30 Anion Gap 10.5 (7.0-16.0) 09/15/16 08:30 BUN 71 mg/dL (7-25) H 09/15/16 08:30 Creatinine 2.1 mg/dL (0.7-1.3) H 09/15/16 08:30 Est GFR ( Amer) TNP 09/15/16 08:30 Est GFR (Non-Af Amer) TNP 09/15/16 08:30 BUN/Creatinine Ratio 33.8 09/15/16 08:30 Glucose 284 mg/dL (70-105) H 09/15/16 08:30 POC Glucose 264 MG/DL (70 - 105) H 09/15/16 11:43 Hemoglobin A1c % 6.2 % (4.0-6.0) H 09/07/16 04:37 Whole Bld Lactic Acid 1.93 mmol/L (0.60-1.99) 09/11/16 08:00 Calcium 8.2 mg/dL (8.6-10.3) L 09/15/16 08:30 Phosphorus 4.0 mg/dL (2.5-5.0) 09/15/16 08:30 Magnesium 2.5 mg/dL (1.9-2.7) 09/15/16 08:30 Total Bilirubin 1.3 mg/dL (0.3-1.0) H 09/15/16 08:30 Direct Bilirubin 0.85 mg/dL (0.0-0.2) H 09/15/16 08:30 AST 88 U/L (13-39) H 09/15/16 08:30 ALT 157 U/L (7-52) H 09/15/16 08:30 Alkaline Phosphatase 36 U/L (34-104) 09/15/16 08:30 Ammonia 75 umol/L (16-53) H 09/15/16 08:30 Troponin I 0.24 ng/mL (0.01-0.05) H* D 09/08/16 14:21 B-Natriuretic Peptide 2130.0 pg/mL (5.0-100.0) H 09/10/16 04:22 Total Protein 5.4 gm/dL (6.0-8.3) L 09/15/16 08:30 Albumin 3.4 gm/dL (4.2-5.5) L 09/15/16 08:30 Globulin 2.0 gm/dL 09/15/16 08:30 Albumin/Globulin Ratio 1.7 (1.0-1.8) 09/15/16 08:30 Triglycerides 76 mg/dL (<150) 09/14/16 04:45 Urine Source [place] 09/06/16 16:45 Urine Color YELLOW 09/06/16 16:45 Urine Clarity CLEAR (CLEAR) 09/06/16 16:45 Urine pH 5.5 09/06/16 16:45 Ur Specific Sebastian 1.020 (1.005-1.030) 09/06/16 16:45 Urine Protein NEGATIVE mg/dL (NEGATIVE) 09/06/16 16:45 Urine Glucose (UA) NEGATIVE mg/dL (NEGATIVE) 09/06/16 16:45 Urine Ketones NEGATIVE mg/dL (NEGATIVE) 09/06/16 16:45 Urine Blood NEGATIVE (NEGATIVE) 09/06/16 16:45 Urine Nitrate NEGATIVE (NEGATIVE) 09/06/16 16:45 Urine Bilirubin NEGATIVE (NEGATIVE) 09/06/16 16:45 Urine Urobilinogen 0.2 E.U./dL (0.2 - 1.0) 09/06/16 16:45 Ur Leukocyte Esterase NEGATIVE (NEGATIVE) 09/06/16 16:45 Urine RBC NONE SEEN /hpf (0-5) 09/06/16 16:45 Urine WBC NONE SEEN /hpf (0-5) 09/06/16 16:45 Ur Epithelial Cells NONE SEEN /lpf (FEW) 09/06/16 16:45 Urine Bacteria NONE SEEN /hpf (NONE SEEN) 09/06/16 16:45 Vancomycin Trough 9.6 ug/mL (10-20) L 09/08/16 21:06 Random Vancomycin 22.3 ug/mL (5.0-40.0) 09/12/16 05:50 Digoxin 0.2 ng/ml (0.8-2.0) L 09/10/16 04:22 - Physical Exam Vitals and I&O: Vital Signs Temp 97.1 F 09/15/16 12:00 Pulse 117 09/15/16 13:45 Resp 17 09/15/16 12:00 BP 137/56 09/15/16 13:45 Pulse Ox 95 09/15/16 12:35 Intake & Output 09/14/16 09/15/16 09/15/16 18:59 06:59 18:59 Intake Total 7642.649 8414.498 268.995 Output Total 1300 Balance 1198.912 -153.502 268.995 Intake: Intake, IV Amount 1198.912 546.498 268.995 Diltiazem 125 mg In 125 110.583 Dextrose 5% 100 ml @ 5 MG /HR 5 mls/hr IV TITR [facility] Rx#:[id number] Norepinephrine 8 mg In 337.98 270.900 158.412 Dextrose 5% 250 ml @ 0 MCG/MIN IV TITR PRN Rx#: [id number] Phenylephrine HCl 10 mg 735.932 275.598 In Sodium Chloride 0.9% 250 ml @ 20 MCG/MIN 30.12 mls/hr IV TITR [facility] Rx#: [id number] Oral 0 TPN/PPN 600 Output: Gastric Drainage 200 Urine 1100 Other: # Bowel Movements 1 Active Medications: Current Medications Acetaminophen (Tylenol 650mg/20.3ml Suspension) 650 mg PO Q4H PRN PRN Reason: Fever > 101 Stop: 11/07/16 19:11 Last Admin: 09/11/16 21:33 Dose: 650 mg Albuterol/Ipratropium (Duoneb Neb) 3 ml HHN [id number] [facility] Stop: 11/05/16 22:59 Last Admin: 09/15/16 11:24 Dose: 3 ml Amiodarone HCl (Cordarone) 200 mg PO BID [facility] Stop: 11/08/16 13:29 Last Admin: 09/15/16 09:00 Dose: Not Given Ascorbic Acid (Vitamin C) 500 mg PO DAILY [facility] Stop: 11/09/16 08:59 Last Admin: 09/15/16 10:28 Dose: Not Given Budesonide (Pulmicort) 0.5 mg HHN BIDRT [facility] Stop: 11/06/16 18:59 Last Admin: 09/15/16 06:58 Dose: 0.5 mg Calcium/Vitamin D (Oscal W/Vitamin D) 1 tab PO DAILY [facility] Stop: 11/09/16 08:59 Last Admin: 09/15/16 10:28 Dose: Not Given Carbidopa/Levodopa (Sinemet 25mg-100 Mg) 1 tab PO BID [facility] Stop: 11/08/16 16:59 Last Admin: 09/15/16 10:29 Dose: Not Given Chlorhexidine Gluconate (Peridex) 15 ml MM 0800,2000 [facility] Stop: 11/06/16 19:59 Last Admin: 09/15/16 08:00 Dose: 15 ml Docusate Sodium (Colace) 200 mg PO QPM [facility] Stop: 11/11/16 16:59 Last Admin: 09/14/16 17:28 Dose: Not Given Furosemide (Lasix) 20 mg IVP BID [facility] Stop: 11/12/16 16:59 Last Admin: 09/15/16 10:27 Dose: Not Given Phenylephrine HCl 10 mg/ (Sodium Chloride) 251 mls @ 30.12 mls/hr IV TITR [facility]; 20 MCG/MIN PRN Reason: Protocol Stop: 11/07/16 00:59 Last Titration: 09/15/16 04:15 Dose: 0 mcg/min, 0 mls/hr Diltiazem HCl 125 mg/ Dextrose 125 mls @ 5 mls/hr IV TITR [facility]; 5 MG/HR PRN Reason: Protocol Stop: 11/08/16 18:59 Last Admin: 09/15/16 11:35 Dose: 5 mg/hr, 5 mls/hr Norepinephrine Bitartrate 8 mg (/ Dextrose) 258 mls @ 0 mls/hr IV TITR PRN; Protocol; 0 MCG/MIN PRN Reason: BP MAINTENANCE (PER PROTOCOL) Stop: 11/09/16 09:14 Last Admin: 09/15/16 08:07 Dose: 20 mcg/min, 38.7 mls/hr Ceftriaxone Sodium 2 gm/ (Sodium Chloride) 100 mls @ 100 mls/hr IV Q24H [facility] Stop: 11/10/16 12:44 Last Admin: 09/14/16 12:47 Dose: 100 mls/hr Vancomycin HCl 1.25 gm/ Sodium (Chloride) 250 mls @ 165 mls/hr IV Q24H [facility] Stop: 11/13/16 17:59 Last Admin: 09/14/16 17:52 Dose: 165 mls/hr Multivitamins/Minerals 10 ml/Insulin Human Regular 10 units / Dextrose/ Amino Acids/Electrolytes/ Fat Emulsion Intravenous/ Sterile Water 1,345.1 mls @ 50 mls/hr IV .Q24H [facility] Stop: 11/13/16 15:59 Last Admin: 09/14/16 17:44 Dose: 50 mls/hr Insulin Aspart (Novolog Insulin Sliding Scale) 0 units SUBQ ACHS [facility] PRN Reason: Protocol Stop: 11/06/16 07:29 Last Admin: 09/15/16 12:02 Dose: 6 units Lactulose (Cephulac) 30 gm PO TID [facility] Stop: 11/12/16 14:14 Last Admin: 09/15/16 10:31 Dose: Not Given Levothyroxine Sodium (Synthroid) 0.1 mg PO QDAC [facility] Stop: 11/09/16 07:29 Last Admin: 09/15/16 06:35 Dose: 0.1 mg Metronidazole (Flagyl) 500 mg NG Q8H [facility] Stop: 11/13/16 20:59 Last Admin: 09/15/16 04:44 Dose: 500 mg Miscellaneous (Probiotic Screen) 1 ea PRN PRN PRN Reason: PROTOCOL Stop: 11/07/16 09:28 Miscellaneous (Vancomycin Iv Per Pharmacy) 1 ea PRN PRN PRN Reason: PROTOCOL Stop: 11/12/16 08:53 Miscellaneous (Tpn Per Pharmacy) 1 [facility] PRN PRN PRN Reason: PROTOCOL Stop: 11/13/16 15:59 Pantoprazole Sodium (Protonix) 40 mg IVP BID [facility] Stop: 11/07/16 16:59 Last Admin: 09/15/16 10:32 Dose: Not Given General: no acute distress, well developed, well nourished HEENT: atraumatic, normocephalic, PERRLA, EOMI, moist mucous membrane Neck: supple, no thyromegaly Cardiovascular: S1S2, regular Lungs: clear to auscultation bilaterally, clear to percussion Abdomen: soft, no tender, no distended Extremities: no cyanosis, no clubbing, no edema, no lines Neurological: awake, alert, oriented, CN 2-12 intact Skin: intact - Procedures Procedures: Procedures Procedure Code Date INSERT EMERGENCY AIRWAY 32777 09/06/16 INSERTION OF ENDOTRACHEAL AIRWAY INTO TRACHEA, VIA OPENING [id number] 09/06/16 RESPIRATORY VENTILATION, GREATER THAN 96 CONSECUTIVE HOURS [id number] 09/06/16 VENT MGMT INPAT INIT DAY 09/06/16 VENT MGMT INPAT SUBQ DAY 09/06/16 Infectious Disease Assmt/Plan - Assessment Assessment: 1. Septic shock. severe sepsis. . MOF. 2. Suspect pneumonia. Pneumococcal. 3. VDRF. 3. Aortic Stenosis. 4. Dementia. 5. H influenza ? colonizer versus pathogen. 6. Parkinson's disease. 7. DM2 8. HTN. 9. Constipated, ileus. 10. Lactic acidosis. Improved. 11. Renal insufficiency with anasarca. - Plan Plan: Continue rocephin and flagyl. Start vanco IV. Patient will receive HD. Nutritional Asmnt/Malnutr-PDOC - Dietary Evaluation Malnutrition Findings (Please click <Entered> for more info): Nutritional Asmnt/Malnutrition Start: 09/07/16 13: 01 Text: Status: Complete Freq: Document 09/07/16 13:01 [facility] (Rec: 09/07/16 13:17 [id number]) Nutritional Asmnt/Malnutrition Patient General Information Nutritional Screening High Risk Screening Diagnosis Aspiration pneumonia, septic shock, acute resp failure, acute renal failure Pertinent Medical Hx/Surgical Hx HTN, CVA right sided weakness, dementia Subjective Information 86 year old male. Pt seen resting with eyes closed. RT arriving at bedside for intubation during visit. Per RN notes, pt was intubated at 10:30am. Current Diet Order/ Nutrition Support No order. 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 Estimated Nutritional Goals Calories/Kcals/Kg IBW 166lb/75.5kg Kcals Calculated 2114-2416kcal (28-32kcal/kg) Protein g/kg: IBW Protein Calculated 91-136g (1.2-1.8g/kg, monitor acute renal, septic shock and PNA) Fluid: ml 2114-2416ml (1ml/kcal) Nutritional Problem 1. Problem Problem Increased kcal and prot needs related to Etiology hypermetabolic state aeb Signs/Symptoms: septic shock, aspiration penumonia Intervention/Recommendation Comments 1. No nutrition intervention at this time until pt is medically stable, pt newly intubated today. RD to follow tomorrow. Expected Outcomes/Goals Expected Outcomes/Goals 1. Pt to meet at least 75% of estimated nutritional needs.
[2016-09-15] MEDS: Docusate Sodium 100 mg/10 mL UD PO SCH (17:00)
[2016-09-15] MEDS: cefTRIAXone 2 GM in Sodium Chloride 0.9% 100 ML IV SCH (17:01)
[2016-09-15] MEDS: [UNRECOGNIZED DRUG - OTHER] IV SCH (17:59)
[2016-09-15] MEDS: INSULIN HUMAN REGULAR IV SCH (17:59)
[2016-09-15] MEDS: DEXTROSE 70% IV SCH (17:59)
[2016-09-15] MEDS: MULTIVITAMIN IV SCH (17:59)
--- NOTE | 2016-09-16 00:38 | Progress Notes ---
DATE: 09/15/2016 PROBLEM LIST: 1. Persistent respiratory failure. 2. Possibly congestive heart failure. 3. Persistent hypotension. 4. Renal failure, [id number]. 5. 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 SYMPTOMS: Nil. Occasionally, restless, agitated, but no other meaningful communication could be done. PHYSICAL EXAMINATION: VITAL SIGNS: The patient's vitals with vasopressors, blood pressure is 137/86, heart rate is 110-120, patient is afebrile. HEENT: Examination of the oral cavity shows endotracheal tube, otherwise unremarkable. NECK: No nodes in the neck could be palpated. Good bilateral carotid upstroke. CHEST: Finding shows diminished air entry with occasional rhonchi. HEART: Regular, slightly tachycardic. ABDOMEN: Slightly distended with hypoactive bowel sounds. LABORATORY DATA: The patient's WBC is 14.5, hemoglobin is 8.6 and the patient's platelet is 84 and ABG, pO2 is 68 and this was this morning on SIMV mode, backup rate 14 and the patient's electrolytes, potassium is 3.4, creatinine is 2.1, BUN is 71 with slight elevation of liver profile testing. IMPRESSION: The patient has multisystem failure with persistent hypotension, suspect cardiac issue primarily contributory associated with respiratory failure complicated by renal failure, now is on hemodialysis with age factor of 86 years ____. PLANS AND SUGGESTIONS: We will continue current treatment. Overall, prognosis appears to be very poor and we will check couple of laboratory data tomorrow to see how it is and go from there. JOB# [id number]
[2016-09-16 05:20] LABS: HEMOGLOBIN 8.5 gm/dL (12.6-17.4)
[2016-09-16 05:25] LABS: HEMATOCRIT 25.2 % (39.0-49.0); MEAN CORPUSCULAR HEMOGLOBIN 31.2 pg (27.0-31.0); MEAN CORPUSCULAR HGB CONC 33.9 pg (28.0-36.0); MEAN PLATELET VOLUME 10.5 fl; RED BLOOD COUNT 2.74 Mil/cmm (3.80-5.80); RED CELL DISTRIBUTION WIDTH 19.6 % (11.5-20.0)
[2016-09-16 05:31] LABS: PLATELET COUNT 65 Th/cmm (150-400); WHITE BLOOD COUNT 14.2 Th/cmm (4.8-10.8)
[2016-09-16 05:35] LABS: INR 1.34 (0.5-1.4); PROTHROMBIN TIME (TEST) 14.1 SECONDS (9.5-11.5)
[2016-09-16 05:38] LABS: ANION GAP 10.4 (7.0-16.0); BUN - UREA NITROGEN 46 mg/dL (7-25); BUN/CREATININE RATIO 30.7; CALCIUM SERUM 8.6 mg/dL (8.6-10.3); CARBON DIOXIDE 26.8 mEq/L (21.0-31.0); CHLORIDE 108 mEq/L (98-107); CREATININE - SERUM 1.5 mg/dL (0.7-1.3); GLUCOSE 225 mg/dL (70-105); MAGNESIUM 2.2 mg/dL (1.9-2.7); PHOSPHOROUS 2.6 mg/dL (2.5-5.0); POTASSIUM SERUM 4.2 mEq/L (3.5-5.1); SODIUM SERUM 141 mEq/L (136-145)
[2016-09-16] MEDS: Levothyroxine 0.1 Mg Tab PO SCH (06:39)
[2016-09-16] MEDS: INSULIN ASPART SLIDING SCALE 100 UNITS/ML UNIT SUBQ SCH ×4 (06:41→20:48)
[2016-09-16 07:17] LABS: TOTAL CELLS COUNTED 100
[2016-09-16 07:18] LABS: BAND NEUTROPHILE 3 % (0-10); BASOPHIL 0 % (0-3); EOSINOPHIL 0 % (0-5); NEUTROPHILS 88 % (40-80); PLATELET ESTIMATE DECREASED PLATELETS (NORMAL); PLATELET MORPHOLOGY NORMAL (NORMAL)
[2016-09-16 07:19] LABS: HYPOCHROMIA 2+
[2016-09-16] MEDS: Albuterol/Ipratropium Neb 3 ML AERS HHN SCH ×4 (07:23→19:06)
[2016-09-16] MEDS: Budesonide 0.5 Mg/2 mL Ud HHN SCH ×2 (07:23→19:06)
[2016-09-16] MEDS: Chlorhexidine Gluconate 0.12% 15mL Mouthwash MM SCH ×2 (08:30→19:55)
[2016-09-16] MEDS: Lactulose 10 Gm/15 mL 30mL UDC PO SCH ×2 (08:54→20:46)
[2016-09-16] MEDS: Calcium Carb/Vit D 500 mg/200 U Tab PO SCH (08:57)
[2016-09-16] MEDS: cefTRIAXone 2 GM in Sodium Chloride 0.9% 100 ML IV SCH (12:30)
[2016-09-16] MEDS: Docusate Sodium 100 mg/10 mL UD PO SCH (16:44)
[2016-09-16] MEDS: DEXTROSE 70% IV SCH (17:39)
[2016-09-16] MEDS: [UNRECOGNIZED DRUG - OTHER] IV SCH (17:39)
[2016-09-16] MEDS: MULTIVITAMIN IV SCH (17:39)
[2016-09-16] MEDS: INSULIN HUMAN REGULAR IV SCH (17:39)
[2016-09-17 05:08] LABS: MEAN CORPUSCULAR HGB CONC 33.2 pg (28.0-36.0)
[2016-09-17 05:14] LABS: HEMATOCRIT 25.5 % (39.0-49.0); HEMOGLOBIN 8.5 gm/dL (12.6-17.4); MEAN CELL VOLUME 92.4 fl (80-99); MEAN CORPUSCULAR HEMOGLOBIN 30.7 pg (27.0-31.0); MEAN PLATELET VOLUME 12.4 fl; RED BLOOD COUNT 2.76 Mil/cmm (3.80-5.80); RED CELL DISTRIBUTION WIDTH 20.1 % (11.5-20.0)
[2016-09-17 05:25] LABS: PLATELET COUNT 87 Th/cmm (150-400); WHITE BLOOD COUNT 13.7 Th/cmm (4.8-10.8)
[2016-09-17 05:35] LABS: ALB/GLOB RATIO 1.4 (1.0-1.8); ALKALINE PHOSPHATASE 40 U/L (34-104); ANION GAP 8.2 (7.0-16.0); BUN - UREA NITROGEN 45 mg/dL (7-25); CALCIUM SERUM 8.6 mg/dL (8.6-10.3); CARBON DIOXIDE 28.6 mEq/L (21.0-31.0); CHLORIDE 106 mEq/L (98-107); CREATININE - SERUM 1.5 mg/dL (0.7-1.3); GLUCOSE 204 mg/dL (70-105); PHOSPHOROUS 2.1 mg/dL (2.5-5.0); POTASSIUM SERUM 3.8 mEq/L (3.5-5.1); SGOT 41 U/L (13-39); SGPT/ALT 81 U/L (7-52); SODIUM SERUM 139 mEq/L (136-145)
[2016-09-17 05:59] LABS: BAND NEUTROPHILE 6 % (0-10); CORRECTED WBC 13.2 Th/cmm; NEUTROPHILS 82 % (40-80); TOTAL CELLS COUNTED 100
[2016-09-17 06:00] LABS: ANISOCYTOSIS 1+; PLATELET ESTIMATE DECREASED PLATELETS (NORMAL); PLATELET MORPHOLOGY GIANT PLATELETS SEEN (NORMAL); POLYCHROMASIA 1+
[2016-09-17] MEDS: Levothyroxine 0.1 Mg Tab PO SCH (06:48)
[2016-09-17] MEDS: INSULIN ASPART SLIDING SCALE 100 UNITS/ML UNIT SUBQ SCH ×4 (06:48→21:00)
--- NOTE | 2016-09-17 07:01 | Progress Notes ---
DATE: 09/16/2016 PROBLEM LIST: 1. Persistent respiratory failure. 2. Pneumonia. 3. Congestive heart failure. 4. Renal failure. 5. Significant peripheral vascular disease with history of previous CVA. SYMPTOMS: The patient is awake, slightly agitated, but no respiratory distress, etc. Currently, SIMV of 14. PHYSICAL EXAMINATION: VITAL SIGNS: Afebrile. The patient's heart rate is ranging from 110-120, blood pressure 108/70 and saturation is 97% on 70%. NECK: Veins not visualized. CHEST: Shows diminished air entry with occasional rhonchi. HEART: Regular and tachycardic. ABDOMEN: Slightly distended, soft and nontender. EXTREMITIES: Shows poor pulsations. LABORATORY DATA: The patient's white count is 14.2 and platelet is 62. Electrolytes shows creatinine 1.5 and BUN is 46. ASSESSMENT: The patient clinically not much changed, continues to not making any significant headway towards improving. PLANS AND SUGGESTIONS: We will continue current treatment, try to get off the vasopressors as we will check the x-ray and blood gases. If reasonably stable, may cut down on a backup rate, etc., and go from there. JOB# [id number]
[2016-09-17] MEDS: Albuterol/Ipratropium Neb 3 ML AERS HHN SCH ×4 (07:11→18:41)
[2016-09-17] MEDS: Budesonide 0.5 Mg/2 mL Ud HHN SCH ×2 (07:11→18:41)
[2016-09-17] MEDS: Chlorhexidine Gluconate 0.12% 15mL Mouthwash MM SCH ×2 (08:30→20:27)
[2016-09-17 09:01] LABS: pH 7.49 (7.35-7.45)
[2016-09-17 09:02] LABS: ABG SOURCE Arterial; ALLEN TEST YES; BE(B) 6.6 mEq/L (-3.0-3.0); FIO2 30; MECH RATE 14; MECH VT 600; PS 15
[2016-09-17] MEDS: Calcium Carb/Vit D 500 mg/200 U Tab PO SCH (09:46)
[2016-09-17] MEDS: Lactulose 10 Gm/15 mL 30mL UDC PO SCH ×3 (09:46→20:26)
[2016-09-17] MEDS ORDERED: Sodium Phosphate 15 MMOLE in Sodium Chloride 0.9% 250 ML IV ONE (10:00)
--- NOTE | 2016-09-17 11:05 | Diagnostic Imaging Report ---
Portable chest x-ray HISTORY: Shortness of breath Compared to prior exam of 09/14/2016, the heart remains enlarged. Bilateral pleural effusions. Hazy bilateral infiltrates are noted. Endotracheal tube tip is approximately 3.0 cm above the vincent. IMPRESSION: 1. No change in the cardiopulmonary status with findings consistent with congestive heart failure.
[2016-09-17] MEDS: cefTRIAXone 2 GM in Sodium Chloride 0.9% 100 ML IV SCH (12:10)
--- NOTE | 2016-09-17 13:06 | Infectious Disease Prog Note ---
Infectious Disease Subjective - Review of Systems Service Date: 09/17/16 Subjective: No new change. There is no fever. Infectious Disease Objective - Results Result Diagrams: 09/17/16 04:57 09/17/16 04:57 Recent Labs: Laboratory Last Values WBC 13.7 Th/cmm (4.8-10.8) H 09/17/16 04:57 Corrected WBC (auto) 13.2 Th/cmm 09/17/16 04:57 RBC 2.76 Mil/cmm (3.80-5.80) L 09/17/16 04:57 Hgb 8.5 gm/dL (12.6-17.4) L 09/17/16 04:57 Hct 25.5 % (39.0-49.0) L 09/17/16 04:57 MCV 92.4 fl (80-99) 09/17/16 04:57 MCH 30.7 pg (27.0-31.0) 09/17/16 04:57 MCHC Differential 33.2 pg (28.0-36.0) 09/17/16 04:57 RDW 20.1 % (11.5-20.0) H 09/17/16 04:57 Plt Count 87 Th/cmm (150-400) L D 09/17/16 04:57 MPV 12.4 fl 09/17/16 04:57 Neutrophils % 70.0 % (40.0-80.0) 09/12/16 05:50 Band Neutrophils % 6 % (0-10) 09/17/16 04:57 Lymphocytes % 26.8 % (20.0-50.0) 09/12/16 05:50 Monocytes % 2.9 % (2.0-10.0) 09/12/16 05:50 Eosinophils % 0.1 % (0.0-5.0) 09/12/16 05:50 Basophils % 0.2 % (0.0-2.0) 09/12/16 05:50 Neutrophils (Manual) 82 % (40-80) H 09/17/16 04:57 Lymphocytes 9 % (20-50) L 09/17/16 04:57 Monocytes 3 % (2-10) 09/17/16 04:57 Eosinophils 0 % (0-5) 09/16/16 05:05 Basophils 0 % (0-3) 09/16/16 05:05 Metamyelocytes 1 % (0-0) H 09/09/16 04:50 Nucleated RBCs 4.0 % (0-0) H 09/17/16 04:57 Vacuolated Monocytes 09/14/16 04:45 Hypochromia 2+ 09/16/16 05:05 Toxic Granulation 2+ 09/13/16 04:40 Platelet Estimate DECREASED PLATELETS (NORMAL) 09/17/16 04:57 Platelet Morphology GIANT PLATELETS SEEN (NORMAL) 09/17/16 04:57 Polychromasia 1+ 09/17/16 04:57 Poikilocytosis 1+ 09/14/16 04:45 Anisocytosis 1+ 09/17/16 04:57 RBC Morph Micro Appear ABNORMAL (NORMAL) 09/17/16 04:57 Smear Path Review SEE BELOW 09/14/16 04:45 Plt Count 65 Th/cmm (150-750) L 09/16/16 05:05 PT 14.1 SECONDS (9.5-11.5) H 09/16/16 05:05 INR 1.34 (0.5-1.4) 09/16/16 05:05 PTT (Actin FS) 28.4 SECONDS (26.0-38.0) 09/16/16 05:05 Fibrinogen 153.0 mg/dL (200.0-400.0) L 09/16/16 05:05 D-Dimer 2900 ng/mL (100-400) H 09/16/16 05:05 Specimen Source Arterial 09/17/16 08:39 Sample Site Right Radial 09/17/16 08:39 pH 7.49 (7.35-7.45) H 09/17/16 08:39 pCO2 40.0 mmHg (35.0-45.0) 09/17/16 08:39 pO2 72.0 mmHg (80.0-100.0) L 09/17/16 08:39 HCO3 30.0 mEq/L (20.0-26.0) H 09/17/16 08:39 Base Excess 6.6 mEq/L (-3.0-3.0) H 09/17/16 08:39 O2 Saturation 96.0 % (92.0-100.0) 09/17/16 08:39 [place]o Test YES 09/17/16 08:39 Vent Rate 14 09/17/16 08:39 Inspired O2 30 09/17/16 08:39 Tidal Volume 600 09/17/16 08:39 PEEP 0 09/17/16 08:39 Pressure (ins/psv/peep) 15 09/17/16 08:39 Critical Value NHUNG 09/17/16 08:39 Sodium 139 mEq/L (136-145) 09/17/16 04:57 Potassium 3.8 mEq/L (3.5-5.1) 09/17/16 04:57 Chloride 106 mEq/L (98-107) 09/17/16 04:57 Carbon Dioxide 28.6 mEq/L (21.0-31.0) 09/17/16 04:57 Anion Gap 8.2 (7.0-16.0) 09/17/16 04:57 BUN 45 mg/dL (7-25) H 09/17/16 04:57 Creatinine 1.5 mg/dL (0.7-1.3) H 09/17/16 04:57 Est GFR ( Amer) TNP 09/17/16 04:57 Est GFR (Non-Af Amer) [facility] 09/17/16 04:57 BUN/Creatinine Ratio 30.0 09/17/16 04:57 Glucose 204 mg/dL (70-105) H 09/17/16 04:57 POC Glucose 178 MG/DL (70 - 105) H 09/17/16 11:51 Hemoglobin A1c % 6.2 % (4.0-6.0) H 09/07/16 04:37 Whole Bld Lactic Acid 1.93 mmol/L (0.60-1.99) 09/11/16 08:00 Calcium 8.6 mg/dL (8.6-10.3) 09/17/16 04:57 Phosphorus 2.1 mg/dL (2.5-5.0) L 09/17/16 04:57 Magnesium 2.0 mg/dL (1.9-2.7) 09/17/16 04:57 Total Bilirubin 2.0 mg/dL (0.3-1.0) H 09/17/16 04:57 Direct Bilirubin 0.85 mg/dL (0.0-0.2) H 09/15/16 08:30 AST 41 U/L (13-39) H 09/17/16 04:57 ALT 81 U/L (7-52) H 09/17/16 04:57 Alkaline Phosphatase 40 U/L (34-104) 09/17/16 04:57 Ammonia 75 umol/L (16-53) H 09/15/16 08:30 Troponin I 0.24 ng/mL (0.01-0.05) H* D 09/08/16 14:21 B-Natriuretic Peptide 2130.0 pg/mL (5.0-100.0) H 09/10/16 04:22 Total Protein 5.6 gm/dL (6.0-8.3) L 09/17/16 04:57 Albumin 3.3 gm/dL (4.2-5.5) L 09/17/16 04:57 Globulin 2.3 gm/dL 09/17/16 04:57 Albumin/Globulin Ratio 1.4 (1.0-1.8) 09/17/16 04:57 Prealbumin 11 mg/dL (9-32) 09/15/16 08:30 Triglycerides 76 mg/dL (<150) 09/14/16 04:45 Cholesterol 88 mg/dL (<200) 09/17/16 04:57 Urine Source [place] 09/06/16 16:45 Urine Color YELLOW 09/06/16 16:45 Urine Clarity CLEAR (CLEAR) 09/06/16 16:45 Urine pH 5.5 09/06/16 16:45 Ur Specific [place] 1.020 (1.005-1.030) 09/06/16 16:45 Urine Protein NEGATIVE mg/dL (NEGATIVE) 09/06/16 16:45 Urine Glucose (UA) NEGATIVE mg/dL (NEGATIVE) 09/06/16 16:45 Urine Ketones NEGATIVE mg/dL (NEGATIVE) 09/06/16 16:45 Urine Blood NEGATIVE (NEGATIVE) 09/06/16 16:45 Urine Nitrate NEGATIVE (NEGATIVE) 09/06/16 16:45 Urine Bilirubin NEGATIVE (NEGATIVE) 09/06/16 16:45 Urine Urobilinogen 0.2 E.U./dL (0.2 - 1.0) 09/06/16 16:45 Ur Leukocyte Esterase NEGATIVE (NEGATIVE) 09/06/16 16:45 Urine RBC NONE SEEN /hpf (0-5) 09/06/16 16:45 Urine WBC NONE SEEN /hpf (0-5) 09/06/16 16:45 Ur Epithelial Cells NONE SEEN /lpf (FEW) 09/06/16 16:45 Urine Bacteria NONE SEEN /hpf (NONE SEEN) 09/06/16 16:45 Vancomycin Trough 20.8 ug/mL (10-20) H 09/15/16 16:59 Random Vancomycin 22.3 ug/mL (5.0-40.0) 09/12/16 05:50 Digoxin 0.2 ng/ml (0.8-2.0) L 09/10/16 04:22 Blood Type B POSITIVE 09/15/16 14:53 Antibody Screen NEGATIVE 09/15/16 14:53 - Physical Exam Vitals and I&O: Vital Signs Temp 97.8 F 09/17/16 12:00 Pulse 117 09/17/16 12:45 Resp 15 09/17/16 12:00 BP 106/52 09/17/16 12:45 Pulse Ox 100 09/17/16 12:00 Intake & Output 09/16/16 09/17/16 09/17/16 18:59 06:59 18:59 Intake Total 2443.500 1116 50 Output Total 1350 1800 Balance 1093.500 -684 50 Intake: Intake, IV Amount 1643.500 516 Diltiazem 125 mg In 102.167 Dextrose 5% 100 ml @ 5 MG /HR 5 mls/hr IV TITR JULIO Rx#:[id number] Multivitamin Inj 10 ml 1183.333 Insulin Human Regular 10 units In Dextrose 70% 280 ml In Amino Acids 10% 420 ml In Intralipids 20% 117 ml In Water, Sterile 518 ml @ 50 mls/hr IV . Q24H JULIO Rx#:[id number] Norepinephrine 8 mg In 258 516 Dextrose 5% 250 ml @ 0 MCG/MIN IV TITR PRN Rx#: [id number] cefTRIAXone 2 gm In 100 Sodium Chloride 0.9% 100 ml @ 100 mls/hr IV Q24H JULIO Rx#:[id number] Oral 0 Tube Feeding 200 TPN/PPN 600 600 50 Output: Urine 1350 1800 Stool 0 Other: Stool Characteristics Soft Formed Brown Active Medications: Current Medications Acetaminophen (Tylenol 650mg/20.3ml Suspension) 650 mg PO Q4H PRN PRN Reason: Fever > 101 Stop: 11/07/16 19:11 Last Admin: 09/11/16 21:33 Dose: 650 mg Albuterol/Ipratropium (Duoneb Neb) 3 ml HHN [id number] JULIO Stop: 11/05/16 22:59 Last Admin: 09/17/16 11:04 Dose: 3 ml Amiodarone HCl (Cordarone) 200 mg PO BID JULIO Stop: 11/08/16 13:29 Last Admin: 09/17/16 09:46 Dose: 200 mg Ascorbic Acid (Vitamin C) 500 mg PO DAILY JULIO Stop: 11/09/16 08:59 Last Admin: 09/17/16 09:46 Dose: 500 mg Budesonide (Pulmicort) 0.5 mg HHN BIDRT JULIO Stop: 11/06/16 18:59 Last Admin: 09/17/16 07:11 Dose: 0.5 mg Calcium/Vitamin D (Oscal W/Vitamin D) 1 tab PO DAILY JULIO Stop: 11/09/16 08:59 Last Admin: 09/17/16 09:46 Dose: 1 tab Carbidopa/Levodopa (Sinemet 25mg-100 Mg) 1 tab PO BID JULIO Stop: 11/08/16 16:59 Last Admin: 09/17/16 09:46 Dose: 1 tab Chlorhexidine Gluconate (Peridex) 15 ml MM 0800,2000 [facility] Stop: 11/06/16 19:59 Last Admin: 09/17/16 08:30 Dose: 15 ml Docusate Sodium (Colace) 200 mg PO QPM JULIO Stop: 11/11/16 16:59 Last Admin: 09/16/16 16:44 Dose: 200 mg Furosemide (Lasix) 20 mg IVP BID JULIO Stop: 11/12/16 16:59 Last Admin: 09/17/16 09:46 Dose: 20 mg Phenylephrine HCl 10 mg/ (Sodium Chloride) 251 mls @ 30.12 mls/hr IV TITR JULIO; 20 MCG/MIN PRN Reason: Protocol Stop: 11/07/16 00:59 Last Titration: 09/15/16 04:15 Dose: 0 mcg/min, 0 mls/hr Diltiazem HCl 125 mg/ Dextrose 125 mls @ 5 mls/hr IV TITR JULIO; 5 MG/HR PRN Reason: Protocol Stop: 11/08/16 18:59 Last Admin: 09/16/16 08:01 Dose: 5 mg/hr, 5 mls/hr Norepinephrine Bitartrate 8 mg (/ Dextrose) 258 mls @ 0 mls/hr IV TITR PRN; Protocol; 0 MCG/MIN PRN Reason: BP MAINTENANCE (PER PROTOCOL) Stop: 11/09/16 09:14 Last Admin: 09/17/16 03:40 Dose: 18 mcg/min, 34.83 mls/hr Ceftriaxone Sodium 2 gm/ (Sodium Chloride) 100 mls @ 100 mls/hr IV Q24H [facility] Stop: 11/10/16 12:44 Last Admin: 09/17/16 12:10 Dose: 100 mls/hr Vancomycin HCl 1.25 gm/ Sodium (Chloride) 250 mls @ 165 mls/hr IV Q24H [facility] Stop: 11/13/16 17:59 Last Admin: 09/16/16 17:36 Dose: 165 mls/hr Multivitamins/Minerals 10 ml/Insulin Human Regular 10 units / Dextrose/ Amino Acids/Electrolytes/ Fat Emulsion Intravenous/ Sterile Water 1,345.1 mls @ 50 mls/hr IV .Q24H [facility] Stop: 11/13/16 15:59 Last Admin: 09/16/16 17:39 Dose: 50 mls/hr Sodium Phosphate 15 mmole/ (Sodium Chloride) 255 mls @ 42 mls/hr IV ONCE ONE Stop: 09/17/16 16:04 Last Admin: 09/17/16 10:10 Dose: 42 mls/hr Insulin Aspart (Novolog Insulin Sliding Scale) 0 units SUBQ ACHS JULIO PRN Reason: Protocol Stop: 11/06/16 07:29 Last Admin: 09/17/16 11:52 Dose: 2 units Lactulose (Cephulac) 30 gm PO TID [facility] Stop: 11/12/16 14:14 Last Admin: 09/17/16 09:46 Dose: 30 gm Levothyroxine Sodium (Synthroid) 0.1 mg PO QDAC [facility] Stop: 11/09/16 07:29 Last Admin: 09/17/16 06:48 Dose: 0.1 mg Metronidazole (Flagyl) 500 mg NG Q8H [facility] Stop: 11/13/16 20:59 Last Admin: 09/17/16 05:03 Dose: 500 mg Miscellaneous (Probiotic Screen) 1 ea PRN PRN PRN Reason: PROTOCOL Stop: 11/07/16 09:28 Miscellaneous (Vancomycin Iv Per Pharmacy) 1 ea PRN PRN PRN Reason: PROTOCOL Stop: 11/12/16 08:53 Miscellaneous (Tpn Per Pharmacy) 1 ea PRN PRN PRN Reason: PROTOCOL Stop: 11/13/16 15:59 Pantoprazole Sodium (Protonix) 40 mg IVP BID JULIO Stop: 11/07/16 16:59 Last Admin: 09/17/16 09:45 Dose: 40 mg General: no acute distress, well developed, well nourished HEENT: atraumatic, normocephalic, PERRLA, EOMI, moist mucous membrane Neck: supple Cardiovascular: S1S2, regular Lungs: clear to auscultation bilaterally, clear to percussion Abdomen: soft, no tender, no distended Extremities: edema, no cyanosis, no clubbing Neurological: awake, alert Skin: intact - Procedures Procedures: Procedures Procedure Code Date INSERT EMERGENCY AIRWAY 85116 09/06/16 INSERTION OF ENDOTRACHEAL AIRWAY INTO [place], VIA OPENING [id number] 09/06/16 RESPIRATORY VENTILATION, GREATER THAN 96 CONSECUTIVE HOURS [id number] 09/06/16 VENT MGMT INPAT INIT DAY 09/06/16 VENT MGMT INPAT SUBQ DAY 09/06/16 Infectious Disease Assmt/Plan - Assessment Assessment: 1. Septic shock. severe sepsis. . MOF. 2. Suspect pneumonia. Pneumococcal. 3. VDRF. 3. Aortic Stenosis. 4. Dementia. 5. H influenza ? colonizer versus pathogen. 6. Parkinson's disease. 7. DM2 8. HTN. 9. Constipated, ileus. 10. Lactic acidosis. Improved. 11. Renal insufficiency with anasarca. - Plan Plan: Continue rocephin and flagyl. dc vanco IV. Patient will receive HD. Nutritional Asmnt/Malnutr-PDOC - Dietary Evaluation Malnutrition Findings (Please click <Entered> for more info): Nutritional Asmnt/Malnutrition Start: 09/07/16 13: 01 Text: Status: Complete Freq: Document 09/07/16 13:01 GSARACELI (Rec: 09/07/16 13:17 [email or web address] [id number]) Nutritional Asmnt/Malnutrition Patient General Information Nutritional Screening High Risk Screening Diagnosis Aspiration pneumonia, septic shock, acute resp failure, acute renal failure Pertinent Medical Hx/Surgical Hx HTN, CVA right sided weakness, dementia Subjective Information 86 year old male. Pt seen resting with eyes closed. RT arriving at bedside for intubation during visit. Per RN notes, pt was intubated at 10:30am. Current Diet Order/ Nutrition Support No order. 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 Estimated Nutritional Goals Calories/Kcals/Kg IBW 166lb/75.5kg Kcals Calculated 2114-2416kcal (28-32kcal/kg) Protein g/kg: IBW Protein Calculated 91-136g (1.2-1.8g/kg, monitor acute renal, septic shock and PNA) Fluid: ml 2114-2416ml (1ml/kcal) Nutritional Problem 1. Problem Problem Increased kcal and prot needs related to Etiology hypermetabolic state aeb Signs/Symptoms: septic shock, aspiration penumonia Intervention/Recommendation Comments 1. No nutrition intervention at this time until pt is medically stable, pt newly intubated today. RD to follow tomorrow. Expected Outcomes/Goals Expected Outcomes/Goals 1. Pt to meet at least 75% of estimated nutritional needs.
[2016-09-17] MEDS ORDERED: TPN 10%-70% CUSTOM IV SCH (15:00)
[2016-09-17] MEDS: Docusate Sodium 100 mg/10 mL UD PO SCH (16:23)
[2016-09-17] MEDS: [UNRECOGNIZED DRUG - OTHER] IV SCH (21:08)
[2016-09-17] MEDS: MULTIVITAMIN IV SCH (21:08)
[2016-09-17] MEDS: INSULIN HUMAN REGULAR IV SCH (21:08)
[2016-09-17] MEDS: DEXTROSE 70% IV SCH (21:08)
[2016-09-18 06:36] LABS: HEMATOCRIT 27.5 % (39.0-49.0); HEMOGLOBIN 9.1 gm/dL (12.6-17.4); MEAN CELL VOLUME 93.3 fl (80-99); MEAN CORPUSCULAR HEMOGLOBIN 30.7 pg (27.0-31.0); MEAN CORPUSCULAR HGB CONC 32.9 pg (28.0-36.0); MEAN PLATELET VOLUME 11.7 fl; PLATELET COUNT 85 Th/cmm (150-400); RED BLOOD COUNT 2.95 Mil/cmm (3.80-5.80); RED CELL DISTRIBUTION WIDTH 19.6 % (11.5-20.0)
[2016-09-18 06:49] LABS: WHITE BLOOD COUNT 10.3 Th/cmm (4.8-10.8)
[2016-09-18 06:53] LABS: INR 1.25 (0.5-1.4); PROTHROMBIN TIME (TEST) 13.1 SECONDS (9.5-11.5)
[2016-09-18] MEDS: Levothyroxine 0.1 Mg Tab PO SCH (06:55)
[2016-09-18] MEDS: INSULIN ASPART SLIDING SCALE 100 UNITS/ML UNIT SUBQ SCH ×4 (06:56→20:50)
[2016-09-18 07:10] LABS: ALB/GLOB RATIO 1.4 (1.0-1.8); ALKALINE PHOSPHATASE 46 U/L (34-104); BILIRUBIN,TOTAL 2.6 mg/dL (0.3-1.0); BUN - UREA NITROGEN 30 mg/dL (7-25); BUN/CREATININE RATIO 23.1; CALCIUM SERUM 8.6 mg/dL (8.6-10.3); CARBON DIOXIDE 31.3 mEq/L (21.0-31.0); CHLORIDE 100 mEq/L (98-107); CREATININE - SERUM 1.3 mg/dL (0.7-1.3); GLUCOSE 204 mg/dL (70-105); MAGNESIUM 1.7 mg/dL (1.9-2.7); PHOSPHOROUS 1.9 mg/dL (2.5-5.0); POTASSIUM SERUM 3.3 mEq/L (3.5-5.1); SGOT 38 U/L (13-39); SGPT/ALT 105 U/L (7-52); SODIUM SERUM 139 mEq/L (136-145)
[2016-09-18] MEDS: Albuterol/Ipratropium Neb 3 ML AERS HHN SCH ×4 (07:52→18:49)
[2016-09-18] MEDS: Budesonide 0.5 Mg/2 mL Ud HHN SCH ×2 (07:52→18:49)
[2016-09-18] MEDS ORDERED: Mag Sulfate 2gm/50mL Premix 2 GM/50 ML BAG IV ONE (08:00)
[2016-09-18 08:02] LABS: ANISOCYTOSIS 1+; BAND NEUTROPHILE 6 % (0-10); NEUTROPHILS 91 % (40-80); PLATELET ESTIMATE DECREASED PLATELETS (NORMAL); PLATELET MORPHOLOGY NORMAL (NORMAL); POIKILOCYTOSIS 1+; POLYCHROMASIA 2+; TOTAL CELLS COUNTED 100
[2016-09-18] MEDS: Calcium Carb/Vit D 500 mg/200 U Tab PO SCH (08:36)
[2016-09-18] MEDS: Lactulose 10 Gm/15 mL 30mL UDC PO SCH ×3 (08:40→20:51)
[2016-09-18] MEDS: Chlorhexidine Gluconate 0.12% 15mL Mouthwash MM SCH ×2 (08:40→20:50)
[2016-09-18] MEDS ORDERED: KCL 20mEq/100mL Premix 20 MEQ/100 ML PIGGYBACK IV ONE (10:00)
[2016-09-18] MEDS ORDERED: Potassium Phosphate 20 MMOLE in Sodium Chloride 0.9% 250 ML IV ONE (10:00)
--- NOTE | 2016-09-18 10:04 | Diagnostic Imaging Report ---
CHEST X-RAY: AP view INDICATION: Shortness of breath, effusions COMPARISON: Chest x-ray on 09/17/2016 FINDINGS: ET tube is seen with tip 4.3 cm above the Erna. Right dialysis catheter and left PICC line are stable. NG tube is visualized of the stomach with distal tip not seen. Low lung lungs are seen with persistent CHF and bilateral small effusions. Cardiomegaly is noted with atherosclerosis. IMPRESSION: Low lung volumes with persistent CHF and bilateral small effusions. Pneumonia of the right lung cannot be excluded. Cardiomegaly and atherosclerotic vascular disease.
[2016-09-18] MEDS ORDERED: Sodium Phosphate 20 MMOLE in Sodium Chloride 0.9% 250 ML IV ONE (10:30)
[2016-09-18] MEDS: cefTRIAXone 2 GM in Sodium Chloride 0.9% 100 ML IV SCH (12:04)
--- NOTE | 2016-09-18 12:04 | Infectious Disease Prog Note ---
Infectious Disease Subjective - Review of Systems Service Date: 09/18/16 Subjective: No new change. There is no fever. Remains intubated orally, on the ventilator support. Infectious Disease Objective - Results Result Diagrams: 09/18/16 06:15 09/18/16 06:15 Recent Labs: Laboratory Last Values WBC 10.3 Th/cmm (4.8-10.8) D 09/18/16 06:15 Corrected WBC (auto) 13.2 Th/cmm 09/17/16 04:57 RBC 2.95 Mil/cmm (3.80-5.80) L 09/18/16 06:15 Hgb 9.1 gm/dL (12.6-17.4) L 09/18/16 06:15 Hct 27.5 % (39.0-49.0) L 09/18/16 06:15 MCV 93.3 fl (80-99) 09/18/16 06:15 MCH 30.7 pg (27.0-31.0) 09/18/16 06:15 MCHC Differential 32.9 pg (28.0-36.0) 09/18/16 06:15 RDW 19.6 % (11.5-20.0) 09/18/16 06:15 Plt Count 85 Th/cmm (150-400) L 09/18/16 06:15 MPV 11.7 fl 09/18/16 06:15 Neutrophils % 70.0 % (40.0-80.0) 09/12/16 05:50 Band Neutrophils % 6 % (0-10) 09/18/16 06:15 Lymphocytes % 26.8 % (20.0-50.0) 09/12/16 05:50 Monocytes % 2.9 % (2.0-10.0) 09/12/16 05:50 Eosinophils % 0.1 % (0.0-5.0) 09/12/16 05:50 Basophils % 0.2 % (0.0-2.0) 09/12/16 05:50 Neutrophils (Manual) 91 % (40-80) H 09/18/16 06:15 Lymphocytes 3 % (20-50) L 09/18/16 06:15 Monocytes 3 % (2-10) 09/17/16 04:57 Eosinophils 0 % (0-5) 09/16/16 05:05 Basophils 0 % (0-3) 09/16/16 05:05 Metamyelocytes 1 % (0-0) H 09/09/16 04:50 Nucleated RBCs 2.0 % (0-0) H 09/18/16 06:15 Vacuolated Monocytes 09/14/16 04:45 Hypochromia 2+ 09/16/16 05:05 Toxic Granulation 2+ 09/13/16 04:40 Platelet Estimate DECREASED PLATELETS (NORMAL) 09/18/16 06:15 Platelet Morphology NORMAL (NORMAL) 09/18/16 06:15 Polychromasia 2+ 09/18/16 06:15 Poikilocytosis 1+ 09/18/16 06:15 Anisocytosis 1+ 09/18/16 06:15 RBC Morph Micro Appear ABNORMAL (NORMAL) 09/18/16 06:15 Smear Path Review SEE BELOW 09/14/16 04:45 Plt Count 85 Th/cmm (150-750) L 09/18/16 06:15 PT 13.1 SECONDS (9.5-11.5) H 09/18/16 06:15 INR 1.25 (0.5-1.4) 09/18/16 06:15 PTT (Actin FS) 26.2 SECONDS (26.0-38.0) 09/18/16 06:15 Fibrinogen 227.0 mg/dL (200.0-400.0) 09/18/16 06:15 D-Dimer 3500 ng/mL (100-400) H 09/18/16 06:15 Specimen Source Arterial 09/17/16 08:39 Sample Site Right Radial 09/17/16 08:39 pH 7.49 (7.35-7.45) H 09/17/16 08:39 pCO2 40.0 mmHg (35.0-45.0) 09/17/16 08:39 pO2 72.0 mmHg (80.0-100.0) L 09/17/16 08:39 HCO3 30.0 mEq/L (20.0-26.0) H 09/17/16 08:39 Base Excess 6.6 mEq/L (-3.0-3.0) H 09/17/16 08:39 O2 Saturation 96.0 % (92.0-100.0) 09/17/16 08:39 Rancho Test YES 09/17/16 08:39 Vent Rate 14 09/17/16 08:39 Inspired O2 30 09/17/16 08:39 Tidal Volume 600 09/17/16 08:39 PEEP 0 09/17/16 08:39 Pressure (ins/psv/peep) 15 09/17/16 08:39 Critical Value NHUNG 09/17/16 08:39 Sodium 139 mEq/L (136-145) 09/18/16 06:15 Potassium 3.3 mEq/L (3.5-5.1) L 09/18/16 06:15 Chloride 100 mEq/L (98-107) 09/18/16 06:15 Carbon Dioxide 31.3 mEq/L (21.0-31.0) H 09/18/16 06:15 Anion Gap 11.0 (7.0-16.0) 09/18/16 06:15 BUN 30 mg/dL (7-25) H 09/18/16 06:15 Creatinine 1.3 mg/dL (0.7-1.3) 09/18/16 06:15 Est GFR ( Amer) TNP 09/18/16 06:15 Est GFR (Non-Af Amer) TNP 09/18/16 06:15 BUN/Creatinine Ratio 23.1 09/18/16 06:15 Glucose 204 mg/dL (70-105) H 09/18/16 06:15 POC Glucose 192 MG/DL (70 - 105) H 09/18/16 11:23 Hemoglobin A1c % 6.2 % (4.0-6.0) H 09/07/16 04:37 Whole Bld Lactic Acid 1.93 mmol/L (0.60-1.99) 09/11/16 08:00 Calcium 8.6 mg/dL (8.6-10.3) 09/18/16 06:15 Phosphorus 1.9 mg/dL (2.5-5.0) L 09/18/16 06:15 Magnesium 1.7 mg/dL (1.9-2.7) L 09/18/16 06:15 Total Bilirubin 2.6 mg/dL (0.3-1.0) H 09/18/16 06:15 Direct Bilirubin 0.85 mg/dL (0.0-0.2) H 09/15/16 08:30 AST 38 U/L (13-39) 09/18/16 06:15 ALT 105 U/L (7-52) H 09/18/16 06:15 Alkaline Phosphatase 46 U/L (34-104) 09/18/16 06:15 Ammonia 75 umol/L (16-53) H 09/15/16 08:30 Troponin I 0.24 ng/mL (0.01-0.05) H* D 09/08/16 14:21 B-Natriuretic Peptide 2130.0 pg/mL (5.0-100.0) H 09/10/16 04:22 Total Protein 5.5 gm/dL (6.0-8.3) L 09/18/16 06:15 Albumin 3.2 gm/dL (4.2-5.5) L 09/18/16 06:15 Globulin 2.3 gm/dL 09/18/16 06:15 Albumin/Globulin Ratio 1.4 (1.0-1.8) 09/18/16 06:15 Prealbumin 11 mg/dL (9-32) 09/17/16 04:57 Triglycerides 76 mg/dL (<150) 09/14/16 04:45 Cholesterol 88 mg/dL (<200) 09/17/16 04:57 Urine Source [place] 09/06/16 16:45 Urine Color YELLOW 09/06/16 16:45 Urine Clarity CLEAR (CLEAR) 09/06/16 16:45 Urine pH 5.5 09/06/16 16:45 Ur Specific [place] 1.020 (1.005-1.030) 09/06/16 16:45 Urine Protein NEGATIVE mg/dL (NEGATIVE) 09/06/16 16:45 Urine Glucose (UA) NEGATIVE mg/dL (NEGATIVE) 09/06/16 16:45 Urine Ketones NEGATIVE mg/dL (NEGATIVE) 09/06/16 16:45 Urine Blood NEGATIVE (NEGATIVE) 09/06/16 16:45 Urine Nitrate NEGATIVE (NEGATIVE) 09/06/16 16:45 Urine Bilirubin NEGATIVE (NEGATIVE) 09/06/16 16:45 Urine Urobilinogen 0.2 E.U./dL (0.2 - 1.0) 09/06/16 16:45 Ur Leukocyte Esterase NEGATIVE (NEGATIVE) 09/06/16 16:45 Urine RBC NONE SEEN /hpf (0-5) 09/06/16 16:45 Urine WBC NONE SEEN /hpf (0-5) 09/06/16 16:45 Ur Epithelial Cells NONE SEEN /lpf (FEW) 09/06/16 16:45 Urine Bacteria NONE SEEN /hpf (NONE SEEN) 09/06/16 16:45 Stool Occult Blood POSITIVE (NEGATIVE) 09/18/16 07:10 Vancomycin Trough 20.8 ug/mL (10-20) H 09/15/16 16:59 Random Vancomycin 22.3 ug/mL (5.0-40.0) 09/12/16 05:50 Digoxin 0.2 ng/ml (0.8-2.0) L 09/10/16 04:22 Blood Type B POSITIVE 09/15/16 14:53 Antibody Screen NEGATIVE 09/15/16 14:53 - Physical Exam Vitals and I&O: Vital Signs Temp 98.8 F 09/18/16 11:00 Pulse 97 09/18/16 11:20 Resp 16 09/18/16 11:00 BP 105/55 09/18/16 11:15 Pulse Ox 100 09/18/16 11:20 Intake & Output 09/17/16 09/18/16 09/18/16 18:59 06:59 18:59 Intake Total 8801.447 7670.857 100 Output Total 4850 1450 625 Balance -3300.938 436.857 -525 Weight (lbs) 97.976 kg Intake: Intake, IV Amount 524.474 1512.857 50 Diltiazem 125 mg In 125 Dextrose 5% 100 ml @ 5 MG /HR 5 mls/hr IV TITR [facility] Rx#:[id number] Mag Sulfate 2gm/50mL 50 Premix 2 gm In 50 ml @ 25 mls/hr IV ONCE ONE Rx#: [id number] Multivitamin Inj 10 ml 1345.1 Insulin Human Regular 10 units In Dextrose 70% 280 ml In Amino Acids 10% 420 ml In Intralipids 20% 117 ml In Water, Sterile 518 ml @ 50 mls/hr IV . Q24H JULIO Rx#:[id number] Norepinephrine 8 mg In 399.062 316.757 Dextrose 5% 250 ml @ 0 MCG/MIN IV TITR PRN Rx#: [id number] cefTRIAXone 2 gm In 100 Sodium Chloride 0.9% 100 ml @ 100 mls/hr IV Q24H [facility] Rx#:[id number] Oral 0 Tube Feeding 0 TPN/PPN 650 50 Other 400 100 Output: Gastric Drainage 50 Urine 2650 1400 625 Hemodialysis 2000 Other 200 Other: # Bowel Movements 1 1 2 Stool Characteristics Liquid Black Active Medications: Current Medications Acetaminophen (Tylenol 650mg/20.3ml Suspension) 650 mg PO Q4H PRN PRN Reason: Fever > 101 Stop: 11/07/16 19:11 Last Admin: 09/18/16 08:35 Dose: 650 mg Albuterol/Ipratropium (Duoneb Neb) 3 ml HHN [id number] JULIO Stop: 11/05/16 22:59 Last Admin: 09/18/16 11:17 Dose: 3 ml Amiodarone HCl (Cordarone) 200 mg PO BID JULIO Stop: 11/08/16 13:29 Last Admin: 09/18/16 08:36 Dose: 200 mg Ascorbic Acid (Vitamin C) 500 mg PO DAILY JULIO Stop: 11/09/16 08:59 Last Admin: 09/18/16 08:37 Dose: 500 mg Budesonide (Pulmicort) 0.5 mg HHN BIDRT JULIO Stop: 11/06/16 18:59 Last Admin: 09/18/16 07:52 Dose: 0.5 mg Calcium/Vitamin D (Oscal W/Vitamin D) 1 tab PO DAILY JULIO Stop: 11/09/16 08:59 Last Admin: 09/18/16 08:36 Dose: 1 tab Carbidopa/Levodopa (Sinemet 25mg-100 Mg) 1 tab PO BID JULIO Stop: 11/08/16 16:59 Last Admin: 09/18/16 08:36 Dose: 1 tab Chlorhexidine Gluconate (Peridex) 15 ml MM 0800,1999 [facility] Stop: 11/06/16 19:59 Last Admin: 09/18/16 08:40 Dose: 15 ml Docusate Sodium (Colace) 200 mg PO QPM JULIO Stop: 11/11/16 16:59 Last Admin: 09/17/16 16:23 Dose: 200 mg Furosemide (Lasix) 20 mg IVP BID JULIO Stop: 11/12/16 16:59 Last Admin: 09/18/16 08:36 Dose: 20 mg Phenylephrine HCl 10 mg/ (Sodium Chloride) 251 mls @ 30.12 mls/hr IV TITR JULIO; 20 MCG/MIN PRN Reason: Protocol Stop: 11/07/16 00:59 Last Titration: 09/15/16 04:15 Dose: 0 mcg/min, 0 mls/hr Diltiazem HCl 125 mg/ Dextrose 125 mls @ 5 mls/hr IV TITR JULIO; 5 MG/HR PRN Reason: Protocol Stop: 11/08/16 18:59 Last Titration: 09/17/16 19:15 Dose: Infused Norepinephrine Bitartrate 8 mg (/ Dextrose) 258 mls @ 0 mls/hr IV TITR PRN; Protocol; 0 MCG/MIN PRN Reason: BP MAINTENANCE (PER PROTOCOL) Stop: 11/09/16 09:14 Last Admin: 09/18/16 06:11 Dose: 16 mcg/min, 30.96 mls/hr Ceftriaxone Sodium 2 gm/ (Sodium Chloride) 100 mls @ 100 mls/hr IV Q24H [facility] Stop: 11/10/16 12:44 Last Infusion: 09/17/16 13:10 Dose: Infused Multivitamins/Minerals 10 ml/Dextrose/ Amino Acids/Electrolytes/ Fat Emulsion Intravenous/ Sterile Water 1,200 mls @ 50 mls/hr IV .Q24H [facility] Stop: 11/16/16 14:59 Last Admin: 09/17/16 15:00 Dose: 50 mls/hr Sodium Phosphate 20 mmole/ (Sodium Chloride) 256.6667 mls @ 42 mls/hr IV ONCE ONE Stop: 09/18/16 16:36 Last Admin: 09/18/16 11:00 Dose: 42 mls/hr Insulin Aspart (Novolog Insulin Sliding Scale) 0 units SUBQ ACHS JULIO PRN Reason: Protocol Stop: 11/06/16 07:29 Last Admin: 09/18/16 11:30 Dose: 2 units Lactulose (Cephulac) 30 gm PO TID [facility] Stop: 11/12/16 14:14 Last Admin: 09/18/16 08:40 Dose: Not Given Levothyroxine Sodium (Synthroid) 0.1 mg PO QDAC [facility] Stop: 11/09/16 07:29 Last Admin: 09/18/16 06:55 Dose: 0.1 mg Metronidazole (Flagyl) 500 mg NG Q8H [facility] Stop: 11/13/16 20:59 Last Admin: 09/18/16 06:55 Dose: 500 mg Miscellaneous (Probiotic Screen) 1 ea PRN PRN PRN Reason: PROTOCOL Stop: 11/07/16 09:28 Miscellaneous (Tpn Per Pharmacy) 1 ea PRN PRN PRN Reason: PROTOCOL Stop: 11/13/16 15:59 Pantoprazole Sodium (Protonix) 40 mg IVP BID [facility] Stop: 11/07/16 16:59 Last Admin: 09/18/16 08:36 Dose: 40 mg General: no acute distress, well developed, well nourished HEENT: atraumatic, normocephalic, PERRLA, EOMI Neck: supple Cardiovascular: S1S2, regular Lungs: clear to auscultation bilaterally, clear to percussion Abdomen: soft, no tender, no distended Extremities: edema, no cyanosis, no clubbing Skin: intact - Procedures Procedures: Procedures Procedure Code Date INSERT EMERGENCY AIRWAY 64281 09/06/16 INSERTION OF ENDOTRACHEAL AIRWAY INTO TRACHEA, VIA OPENING [id number] 09/06/16 RESPIRATORY VENTILATION, GREATER THAN 96 CONSECUTIVE HOURS [id number] 09/06/16 VENT MGMT INPAT INIT DAY 77915 09/06/16 VENT MGMT INPAT SUBQ DAY 39317 09/06/16 Infectious Disease Assmt/Plan - Assessment Assessment: 1. Septic shock. severe sepsis. . MOF. 2. Suspect pneumonia. Pneumococcal. 3. VDRF. 3. Aortic Stenosis. 4. Dementia. 5. H influenza ? colonizer versus pathogen. 6. Parkinson's disease. 7. DM2 8. HTN. 9. diarrhea 2/2 laxative. 10. Lactic acidosis. Improved. 11. Renal insufficiency with anasarca. - Plan Plan: Continue rocephin and flagyl. Patient will receive HD. Nutritional Asmnt/Malnutr-PDOC - Dietary Evaluation Malnutrition Findings (Please click <Entered> for more info): Nutritional Asmnt/Malnutrition Start: 09/07/16 13: 01 Text: Status: Complete Freq: Document 09/07/16 13:01 CRUZ (Rec: 09/07/16 13:17 [email or web address] [id number]) Nutritional Asmnt/Malnutrition Patient General Information Nutritional Screening High Risk Screening Diagnosis Aspiration pneumonia, septic shock, acute resp failure, acute renal failure Pertinent Medical Hx/Surgical Hx HTN, CVA right sided weakness, dementia Subjective Information 86 year old male. Pt seen resting with eyes closed. RT arriving at bedside for intubation during visit. Per RN notes, pt was intubated at 10:30am. Current Diet Order/ Nutrition Support No order. Pertinent Medications D5, Novolog, Solu-Medrol, Vancomycin Pertinent Labs 09/07: potassium 5.8H, BUN 88H (improving), creatiine 2 ( improving), gulcose 355H, A1c 6.2H Nutritional Hx/Data Height 1.78 m Height (Calculated Centimeters) 177.8 Current Weight (lbs) 85.956 kg Weight (Calculated Kilograms) 86.0 Weight (Calculated Grams) 04142.8 [place] Body Weight 166 Weight Status Overweight GI Symptoms Skin Integrity/Comment: Ricardo 12. 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 Estimated Nutritional Goals Calories/Kcals/Kg IBW 166lb/75.5kg Kcals Calculated 2114-2416kcal (28-32kcal/kg) Protein g/kg: IBW Protein Calculated 91-136g (1.2-1.8g/kg, monitor acute renal, septic shock and PNA) Fluid: ml 2114-2416ml (1ml/kcal) Nutritional Problem 1. Problem Problem Increased kcal and prot needs related to Etiology hypermetabolic state aeb Signs/Symptoms: septic shock, aspiration penumonia Intervention/Recommendation Comments 1. No nutrition intervention at this time until pt is medically stable, pt newly intubated today. RD to follow tomorrow. Expected Outcomes/Goals Expected Outcomes/Goals 1. Pt to meet at least 75% of estimated nutritional needs.
--- NOTE | 2016-09-18 14:02 | Progress Notes ---
DATE: 09/17/2016 PROBLEM LIST: 1. Persistent respiratory failure. 2. Congestive heart failure. 3. Possibly pneumonia. 4. Hypertension. 5. Renal failure, on hemodialysis. 6. History of previous CVA. SYMPTOMS: The patient is moving ____ from side to side, still on SIMV 14, but no meaningful response or communication could be done. PHYSICAL EXAMINATION: VITAL SIGNS: Afebrile. Heart rate is 110-120, BP is around 90-100 on vasopressors and saturation 100 on SIMV 14. NECK: Veins not visualized. Good bilateral carotid upstroke. CHEST: Shows diminished air entry with occasional rhonchi. HEART: Regular. ABDOMEN: Slightly distended. EXTREMITIES: Shows poor pulsations with dry gangrenous changes. LABORATORY DATA: The patient's white count is 13,000, hemoglobin 8.5, platelet 80,000. ABG, pO2 of 72 on 30% of oxygen. Electrolytes, creatinine is 1.5, BUN is 45 with significant LFT abnormality as well. ASSESSMENT: The patient overall not much changed, persistent respiratory failure with multisystem failure. PLANS AND SUGGESTIONS: We will continue current supportive care, prognosis appears to be very poor. JOB# [id number]
[2016-09-18] MEDS ORDERED: TPN 10%-70% CUSTOM IV SCH (15:00)
[2016-09-18] MEDS: Docusate Sodium 100 mg/10 mL UD PO SCH (16:37)
--- NOTE | 2016-09-19 05:18 | Progress Notes ---
DATE: 09/18/2016 PROBLEM LIST: 1. Persistent respiratory failure. 2. Persistent hypotension. 3. Acute renal failure. 4. Encephalopathy. 5. Severe CVA with right hemiparesis ____ inability to mobilize gastrointestinal tract effectively ____ on TPN. PHYSICAL EXAMINATION: GENERAL: Not in acute distress, sleeping, barely opens eyes. No respiratory distress. Currently, on SIMV of 14. VITAL SIGNS: On exam, the patient's recorded vitals: Temperature is 98.5, blood pressure is in mid 90s on 16 mcg of Levophed and Cardizem drip is off. NECK: Veins could not be visualized. CHEST: Shows diminished air entry with occasional rhonchi. HEART: Regular. ABDOMEN: Still quite distended with hypoactive bowel sounds. EXTREMITIES: Show some dry gangrene is developing. PERTINENT LABORATORY STUDIES: White count is trending down 10.3 and hemoglobin 9.1. The patient ____ RBC and platelet is 85 K and d-dimer is 3500 and the patient's electrolytes, potassium is 3.3, BUN is 30, and calcium is 9 and the patient's magnesium is 1.7 and the patient's albumin is 3.2. ASSESSMENT: The patient not clinically significantly changed, persistent hypotensive, persistent renal failure, persistent respiratory failure, also suspect persistent congestive heart failure with cardiac arrhythmia. PLANS AND SUGGESTIONS: We will go ahead and continue current treatment. PROGNOSIS: Very poor. JOB# [id number]
[2016-09-19 06:20] LABS: HEMATOCRIT 29.1 % (39.0-49.0); HEMOGLOBIN 9.7 gm/dL (12.6-17.4); MEAN CELL VOLUME 92.3 fl (80-99); MEAN CORPUSCULAR HEMOGLOBIN 30.9 pg (27.0-31.0); MEAN CORPUSCULAR HGB CONC 33.5 pg (28.0-36.0); MEAN PLATELET VOLUME 12.2 fl; PLATELET COUNT 91 Th/cmm (150-400); RED BLOOD COUNT 3.15 Mil/cmm (3.80-5.80); RED CELL DISTRIBUTION WIDTH 19.3 % (11.5-20.0)
[2016-09-19 06:31] LABS: WHITE BLOOD COUNT 12.7 Th/cmm (4.8-10.8)
[2016-09-19 06:35] LABS: ALB/GLOB RATIO 1.2 (1.0-1.8); ALKALINE PHOSPHATASE 41 U/L (34-104); ANION GAP 6.5 (7.0-16.0); BILIRUBIN,TOTAL 2.8 mg/dL (0.3-1.0); BUN - UREA NITROGEN 28 mg/dL (7-25); BUN/CREATININE RATIO 25.5; CALCIUM SERUM 8.4 mg/dL (8.6-10.3); CARBON DIOXIDE 32.5 mEq/L (21.0-31.0); CHLORIDE 102 mEq/L (98-107); CREATININE - SERUM 1.1 mg/dL (0.7-1.3); GLUCOSE 171 mg/dL (70-105); MAGNESIUM 1.9 mg/dL (1.9-2.7); PHOSPHOROUS 2.5 mg/dL (2.5-5.0); SGOT 27 U/L (13-39); SGPT/ALT 23 U/L (7-52); SODIUM SERUM 138 mEq/L (136-145)
[2016-09-19] MEDS: Budesonide 0.5 Mg/2 mL Ud HHN SCH ×2 (06:56→18:52)
[2016-09-19] MEDS: Albuterol/Ipratropium Neb 3 ML AERS HHN SCH ×4 (06:56→18:52)
[2016-09-19] MEDS ORDERED: Potassium Phosphate 40 MMOLE in Sodium Chloride 0.9% 250 ML IV ONE (07:06)
[2016-09-19] MEDS ORDERED: Potassium Chloride Elixir 20 mEq /15 mL UDC GT ONE (07:07)
[2016-09-19] MEDS: INSULIN ASPART SLIDING SCALE 100 UNITS/ML UNIT SUBQ SCH ×4 (07:21→21:26)
[2016-09-19] MEDS: Chlorhexidine Gluconate 0.12% 15mL Mouthwash MM SCH ×2 (08:30→21:27)
[2016-09-19 08:36] LABS: BAND NEUTROPHILE 14 % (0-10); NEUTROPHILS 80 % (40-80); TOTAL CELLS COUNTED 100
[2016-09-19 08:37] LABS: ANISOCYTOSIS 1+; PLATELET ESTIMATE DECREASED PLATELETS (NORMAL); PLATELET MORPHOLOGY GIANT PLATELETS SEEN (NORMAL); POLYCHROMASIA 1+
[2016-09-19] MEDS: KCL 20mEq/100mL Premix 20 MEQ/100 ML PIGGYBACK IV SCH ×2 (08:40→11:00)
[2016-09-19] MEDS: Levothyroxine 0.1 Mg Tab PO SCH (08:40)
[2016-09-19] MEDS: Calcium Carb/Vit D 500 mg/200 U Tab PO SCH (09:13)
[2016-09-19] MEDS: Lactulose 10 Gm/15 mL 30mL UDC PO SCH ×3 (09:14→21:26)
[2016-09-19 09:33] LABS: HEMATOCRIT 28.3 % (39.0-49.0); HEMOGLOBIN 9.5 gm/dL (12.6-17.4); MEAN CELL VOLUME 92.3 fl (80-99); MEAN CORPUSCULAR HGB CONC 33.6 pg (28.0-36.0); PLATELET COUNT 96 Th/cmm (150-400); RED BLOOD COUNT 3.06 Mil/cmm (3.80-5.80); RED CELL DISTRIBUTION WIDTH 18.8 % (11.5-20.0); WHITE BLOOD COUNT 11.9 Th/cmm (4.8-10.8)
[2016-09-19 09:41] LABS: URINE BILIRUBIN NEGATIVE (NEGATIVE); URINE BLOOD MODERATE (NEGATIVE); URINE COLOR YELLOW; URINE GLUCOSE (UA) NEGATIVE (NEGATIVE); URINE KETONE NEGATIVE (NEGATIVE)
[2016-09-19 09:42] LABS: URINE PH 5.5; URINE PROTEIN 30 mg/dL (NEGATIVE); URINE UROBILINOGEN 0.2 E.U./dL (0.2 - 1.0)
--- NOTE | 2016-09-19 09:43 | Diagnostic Imaging Report ---
CHEST X-RAY: AP view INDICATION: NG tube placement COMPARISON: Chest x-ray on 09/18/2016 FINDINGS: Exam is limited due to body habitus. ET tube is seen with tip 4 cm above the Erna. Right subclavian central line and left PICC line are stable. The first image demonstrates NG tube curled and coursing back within the esophagus. The second image demonstrates NG tube within the stomach. Findings of CHF are seen in bilateral hazy infiltrates and small effusions. Cardiomegaly is noted with atherosclerosis. IMPRESSION: NG tube seen within the stomach on the second image. CHF with bilateral effusions and infiltrates Cardiomegaly and atherosclerotic vascular disease.
[2016-09-19 09:47] LABS: URINE BACTERIA OCCASIONAL /hpf (NONE SEEN); URINE COARSE GRANULAR CAST 0-2 /lpf (NONE SEEN); URINE EPITHELIAL CELLS RARE /lpf (FEW); URINE WBC 0-2 /hpf (0-5)
[2016-09-19 09:48] LABS: URINE AMORPHOUS SEDIMENT MODERATE URATES (NONE SEEN)
[2016-09-19 09:54] LABS: ALB/GLOB RATIO 1.2 (1.0-1.8); ALKALINE PHOSPHATASE 42 U/L (34-104); ANION GAP 3.2 (7.0-16.0); BUN - UREA NITROGEN 29 mg/dL (7-25); BUN/CREATININE RATIO 26.4; CALCIUM SERUM 8.5 mg/dL (8.6-10.3); CARBON DIOXIDE 31.8 mEq/L (21.0-31.0); CHLORIDE 104 mEq/L (98-107); CREATININE - SERUM 1.1 mg/dL (0.7-1.3); GLUCOSE 169 mg/dL (70-105); SGOT 26 U/L (13-39); SGPT/ALT 30 U/L (7-52); SODIUM SERUM 136 mEq/L (136-145)
[2016-09-19 09:58] LABS: BAND NEUTROPHILE 11 % (0-10); EOSINOPHIL 1 % (0-5); NEUTROPHILS 83 % (40-80); TOTAL CELLS COUNTED 100
[2016-09-19 09:59] LABS: ANISOCYTOSIS 1+; PLATELET ESTIMATE DECREASED PLATELETS (NORMAL); PLATELET MORPHOLOGY GIANT PLATELETS SEEN (NORMAL); POLYCHROMASIA 2+
[2016-09-19] MEDS ORDERED: Albuterol/Ipratropium Neb 3 ML AERS HHN ONE (14:06)
[2016-09-19] MEDS: TPN 10%-70% CUSTOM IV SCH (15:00)
[2016-09-19] MEDS: Docusate Sodium 100 mg/10 mL UD PO SCH (16:24)
[2016-09-19] MEDS ORDERED: GLUCAGON HCl 1 MG KIT IM PRN (21:00)
[2016-09-19] MEDS ORDERED: Dextrose 50% 50 mL Abboject IVP PRN (21:00)
--- NOTE | 2016-09-20 02:37 | Progress Notes ---
DATE: 09/19/2016 PROBLEM LIST: 1. Persistent respiratory failure. 2. Persistent hypotension requiring large amount of vasopressors. 3. Acute renal failure. 4. Encephalopathy. 5. Dysfunctional GI tract system. SYMPTOMS: Nil. Noncommunicative, not in any acute distress. PHYSICAL EXAMINATION: VITAL SIGNS: Temperature is 97.7, blood pressure ____. Saturation is 98% on 30% FiO2, SIMV 14. NECK: Veins not visualized. CHEST: Shows diminished air entry with occasional rhonchi. HEART: Regular. LABORATORY DATA: The patient's white count is 11.9 and potassium is 3.0. The patient's platelet is slightly improving to 96,000. ASSESSMENT: The patient clinically status quo, no much change. PLANS AND SUGGESTIONS: We will go ahead and continue current treatment, supportive care till sepsis, hypotension gets better and go from there. JOB# [id number]
[2016-09-20] MEDS: INSULIN ASPART SLIDING SCALE 100 UNITS/ML UNIT SUBQ SCH ×4 (06:46→23:42)
[2016-09-20] MEDS: Levothyroxine 0.1 Mg Tab PO SCH (06:46)
[2016-09-20] MEDS: Albuterol/Ipratropium Neb 3 ML AERS HHN SCH ×4 (06:50→18:32)
[2016-09-20] MEDS: Budesonide 0.5 Mg/2 mL Ud HHN SCH ×2 (06:50→18:32)
[2016-09-20 07:23] LABS: ALB/GLOB RATIO 1.1 (1.0-1.8); ALKALINE PHOSPHATASE 42 U/L (34-104); ANION GAP 11.9 (7.0-16.0); BILIRUBIN,TOTAL 3.6 mg/dL (0.3-1.0); BUN - UREA NITROGEN 29 mg/dL (7-25); BUN/CREATININE RATIO 24.2; CALCIUM SERUM 8.6 mg/dL (8.6-10.3); CHLORIDE 101 mEq/L (98-107); CREATININE - SERUM 1.2 mg/dL (0.7-1.3); GLUCOSE 213 mg/dL (70-105); MAGNESIUM 1.9 mg/dL (1.9-2.7); PHOSPHOROUS 2.4 mg/dL (2.5-5.0); POTASSIUM SERUM 3.9 mEq/L (3.5-5.1); SGOT 25 U/L (13-39); SGPT/ALT 31 U/L (7-52); SODIUM SERUM 139 mEq/L (136-145)
[2016-09-20] MEDS: Chlorhexidine Gluconate 0.12% 15mL Mouthwash MM SCH ×2 (08:19→20:15)
--- NOTE | 2016-09-20 08:59 | Diagnostic Imaging Report ---
Portable chest x-ray HISTORY: Shortness of breath Compared with prior exam of 09/19/2016, the heart remains enlarged. Evidence of persistent bilateral pleural effusions. An endotracheal tube tip is approximately 3.5 cm above the vincent. IMPRESSION: 1. No change in the cardiopulmonary status as noted above.
[2016-09-20] MEDS ORDERED: Potassium Chloride Elixir 20 mEq /15 mL UDC GT SCH (09:00)
[2016-09-20 09:22] LABS: ABG SOURCE Arterial; ALLEN TEST PASS; BE(B) 10.2 mEq/L (-3.0-3.0); FIO2 30; HCO3 32.9 mEq/L (20.0-26.0); MECH RATE 14; MECH VT 600; pH 7.51 (7.35-7.45)
[2016-09-20 09:23] LABS: CRITICAL VALUES REPORTED BY PW; PS 15
[2016-09-20] MEDS: Calcium Carb/Vit D 500 mg/200 U Tab PO SCH (09:35)
[2016-09-20] MEDS: Lactulose 10 Gm/15 mL 30mL UDC PO SCH ×4 (09:36→21:30)
--- NOTE | 2016-09-20 11:16 | Infectious Disease Prog Note ---
Infectious Disease Subjective - Review of Systems Service Date: 09/20/16 Subjective: No new change. There is no fever. Remains intubated orally, on the ventilator support. Infectious Disease Objective - Results Result Diagrams: 09/19/16 09:00 09/20/16 06:30 Recent Labs: Laboratory Last Values WBC 11.9 Th/cmm (4.8-10.8) H 09/19/16 09:00 Corrected WBC (auto) 13.2 Th/cmm 09/17/16 04:57 RBC 3.06 Mil/cmm (3.80-5.80) L 09/19/16 09:00 Hgb 9.5 gm/dL (12.6-17.4) L 09/19/16 09:00 Hct 28.3 % (39.0-49.0) L 09/19/16 09:00 MCV 92.3 fl (80-99) 09/19/16 09:00 MCH 31.0 pg (27.0-31.0) 09/19/16 09:00 MCHC Differential 33.6 pg (28.0-36.0) 09/19/16 09:00 RDW 18.8 % (11.5-20.0) 09/19/16 09:00 Plt Count 96 Th/cmm (150-400) L 09/19/16 09:00 MPV 14.0 fl 09/19/16 09:00 Neutrophils % 70.0 % (40.0-80.0) 09/12/16 05:50 Band Neutrophils % 11 % (0-10) H 09/19/16 09:00 Lymphocytes % 26.8 % (20.0-50.0) 09/12/16 05:50 Monocytes % 2.9 % (2.0-10.0) 09/12/16 05:50 Eosinophils % 0.1 % (0.0-5.0) 09/12/16 05:50 Basophils % 0.2 % (0.0-2.0) 09/12/16 05:50 Neutrophils (Manual) 83 % (40-80) H 09/19/16 09:00 Lymphocytes 4 % (20-50) L 09/19/16 09:00 Monocytes 1 % (2-10) L 09/19/16 09:00 Eosinophils 1 % (0-5) 09/19/16 09:00 Basophils 0 % (0-3) 09/16/16 05:05 Metamyelocytes 1 % (0-0) H 09/09/16 04:50 Nucleated RBCs 2.0 % (0-0) H 09/19/16 09:00 Vacuolated Monocytes 09/14/16 04:45 Hypochromia 2+ 09/16/16 05:05 Toxic Granulation 2+ 09/13/16 04:40 Platelet Estimate DECREASED PLATELETS (NORMAL) 09/19/16 09:00 Platelet Morphology GIANT PLATELETS SEEN (NORMAL) 09/19/16 09:00 Polychromasia 2+ 09/19/16 09:00 Poikilocytosis 1+ 09/18/16 06:15 Anisocytosis 1+ 09/19/16 09:00 RBC Morph Micro Appear ABNORMAL (NORMAL) 09/19/16 09:00 Smear Path Review SEE BELOW 09/14/16 04:45 Plt Count 85 Th/cmm (150-750) L 09/18/16 06:15 PT 13.1 SECONDS (9.5-11.5) H 09/18/16 06:15 INR 1.25 (0.5-1.4) 09/18/16 06:15 PTT (Actin FS) 26.2 SECONDS (26.0-38.0) 09/18/16 06:15 Fibrinogen 227.0 mg/dL (200.0-400.0) 09/18/16 06:15 D-Dimer 3500 ng/mL (100-400) H 09/18/16 06:15 Specimen Source Arterial 09/20/16 09:04 Sample Site Right Radial 09/20/16 09:04 pH 7.51 (7.35-7.45) H 09/20/16 09:04 pCO2 43.0 mmHg (35.0-45.0) 09/20/16 09:04 pO2 87.0 mmHg (80.0-100.0) 09/20/16 09:04 HCO3 32.9 mEq/L (20.0-26.0) H 09/20/16 09:04 Base Excess 10.2 mEq/L (-3.0-3.0) H 09/20/16 09:04 O2 Saturation 97.0 % (92.0-100.0) 09/20/16 09:04 [place]o Test PASS 09/20/16 09:04 Vent Rate 14 09/20/16 09:04 Inspired O2 30 09/20/16 09:04 Tidal Volume 600 09/20/16 09:04 PEEP 0 09/17/16 08:39 Pressure (ins/psv/peep) 15 09/20/16 09:04 Critical Value PW 09/20/16 09:04 Sodium 139 mEq/L (136-145) 09/20/16 06:30 Potassium 3.9 mEq/L (3.5-5.1) 09/20/16 06:30 Chloride 101 mEq/L (98-107) 09/20/16 06:30 Carbon Dioxide 30.0 mEq/L (21.0-31.0) 09/20/16 06:30 Anion Gap 11.9 (7.0-16.0) 09/20/16 06:30 BUN 29 mg/dL (7-25) H 09/20/16 06:30 Creatinine 1.2 mg/dL (0.7-1.3) 09/20/16 06:30 Est GFR ( Amer) TNP 09/20/16 06:30 Est GFR (Non-Af Amer) TNP 09/20/16 06:30 BUN/Creatinine Ratio 24.2 09/20/16 06:30 Glucose 213 mg/dL (70-105) H 09/20/16 06:30 POC Glucose 173 MG/DL (70 - 105) H 09/20/16 06:42 Hemoglobin A1c % 6.2 % (4.0-6.0) H 09/07/16 04:37 Whole Bld Lactic Acid 1.21 mmol/L (0.60-1.99) 09/19/16 09:00 Calcium 8.6 mg/dL (8.6-10.3) 09/20/16 06:30 Phosphorus 2.4 mg/dL (2.5-5.0) L 09/20/16 06:30 Magnesium 1.9 mg/dL (1.9-2.7) 09/20/16 06:30 Total Bilirubin 3.6 mg/dL (0.3-1.0) H 09/20/16 06:30 Direct Bilirubin 0.85 mg/dL (0.0-0.2) H 09/15/16 08:30 AST 25 U/L (13-39) 09/20/16 06:30 ALT 31 U/L (7-52) 09/20/16 06:30 Alkaline Phosphatase 42 U/L (34-104) 09/20/16 06:30 Ammonia 33 umol/L (16-53) 09/20/16 06:30 Troponin I 0.24 ng/mL (0.01-0.05) H* D 09/08/16 14:21 B-Natriuretic Peptide 2130.0 pg/mL (5.0-100.0) H 09/10/16 04:22 Total Protein 5.1 gm/dL (6.0-8.3) L 09/20/16 06:30 Albumin 2.7 gm/dL (4.2-5.5) L 09/20/16 06:30 Globulin 2.4 gm/dL 09/20/16 06:30 Albumin/Globulin Ratio 1.1 (1.0-1.8) 09/20/16 06:30 Prealbumin 11 mg/dL (9-32) 09/17/16 04:57 Triglycerides 76 mg/dL (<150) 09/14/16 04:45 Cholesterol 88 mg/dL (<200) 09/17/16 04:57 Urine Source RANDOM 09/19/16 09:00 Urine Color YELLOW 09/19/16 09:00 Urine Clarity SL. CLOUDY (CLEAR) 09/19/16 09:00 Urine pH 5.5 09/19/16 09:00 Ur Specific [place] 1.020 (1.005-1.030) 09/19/16 09:00 Urine Protein 30 mg/dL (NEGATIVE) H 09/19/16 09:00 Urine Glucose (UA) NEGATIVE mg/dL (NEGATIVE) 09/19/16 09:00 Urine Ketones NEGATIVE mg/dL (NEGATIVE) 09/19/16 09:00 Urine Blood MODERATE (NEGATIVE) H 09/19/16 09:00 Urine Nitrate NEGATIVE (NEGATIVE) 09/19/16 09:00 Urine Bilirubin NEGATIVE (NEGATIVE) 09/19/16 09:00 Urine Urobilinogen 0.2 E.U./dL (0.2 - 1.0) 09/19/16 09:00 Ur Leukocyte Esterase NEGATIVE (NEGATIVE) 09/19/16 09:00 Urine RBC 4-6 /hpf (0-5) 09/19/16 09:00 Urine WBC 0-2 /hpf (0-5) 09/19/16 09:00 Ur Epithelial Cells RARE /lpf (FEW) 09/19/16 09:00 Amorphous Sediment MODERATE URATES (NONE SEEN) 09/19/16 09:00 Urine Bacteria OCCASIONAL /hpf (NONE SEEN) 09/19/16 09:00 Coarse Granular Casts 0-2 /lpf (NONE SEEN) H 09/19/16 09:00 Stool Occult Blood POSITIVE (NEGATIVE) 09/18/16 07:10 Vancomycin Trough 23.4 ug/mL (10-20) H 09/18/16 17:06 Random Vancomycin 22.3 ug/mL (5.0-40.0) 09/12/16 05:50 Digoxin 0.2 ng/ml (0.8-2.0) L 09/10/16 04:22 Blood Type B POSITIVE 09/15/16 14:53 Antibody Screen NEGATIVE 09/15/16 14:53 - Physical Exam Vitals and I&O: Vital Signs Temp 98.2 F 09/20/16 04:00 Pulse 117 09/20/16 09:00 Resp 13 09/20/16 07:00 BP 99/52 09/20/16 08:00 Pulse Ox 99 09/20/16 09:00 Intake & Output 09/19/16 09/20/16 09/20/16 18:59 06:59 18:59 Intake Total 1408 952.535 Output Total 3200 1050 Balance -1792 -97.465 Weight (lbs) 100.698 kg Intake: Intake, IV Amount 358 292.535 KCL 20mEq/100mL Premix 20 100 meq In 100 ml @ 50 mls/ hr IV Q2H JULIO Rx#: [id number] Norepinephrine 8 mg In 258 292.535 Dextrose 5% 250 ml @ 0 MCG/MIN IV TITR PRN Rx#: [id number] TPN/PPN 650 600 Other 400 60 Output: Gastric Drainage 100 50 Urine 3100 1000 Other: # Bowel Movements 2 1 Stool Characteristics Liquid Liquid Liquid Black Black Black Active Medications: Current Medications Acetaminophen (Tylenol 650mg/20.3ml Suspension) 650 mg PO Q4H PRN PRN Reason: Fever > 101 Stop: 11/07/16 19:11 Last Admin: 09/19/16 09:11 Dose: 650 mg Albuterol/Ipratropium (Duoneb Neb) 3 ml HHN [id number] [facility] Stop: 11/05/16 22:59 Last Admin: 09/20/16 06:50 Dose: 3 ml Amiodarone HCl (Cordarone) 200 mg PO BID [facility] Stop: 11/08/16 13:29 Last Admin: 09/20/16 09:34 Dose: 200 mg Ascorbic Acid (Vitamin C) 500 mg PO DAILY JULIO Stop: 11/09/16 08:59 Last Admin: 09/20/16 09:35 Dose: 500 mg Budesonide (Pulmicort) 0.5 mg HHN BIDRT [facility] Stop: 11/06/16 18:59 Last Admin: 09/20/16 06:50 Dose: 0.5 mg Calcium/Vitamin D (Oscal W/Vitamin D) 1 tab PO DAILY [facility] Stop: 11/09/16 08:59 Last Admin: 09/20/16 09:35 Dose: 1 tab Carbidopa/Levodopa (Sinemet 25mg-100 Mg) 1 tab PO BID JULIO Stop: 11/08/16 16:59 Last Admin: 09/20/16 09:34 Dose: 1 tab Chlorhexidine Gluconate (Peridex) 15 ml MM 0800,2000 [facility] Stop: 11/06/16 19:59 Last Admin: 09/20/16 08:19 Dose: 15 ml Dextrose (D50w) 50 ml IVP PRN PRN PRN Reason: Blood Glucose less than 70 Stop: 11/18/16 20:59 Dextrose (Glutose 40%) 18.75 gm PO PRN PRN PRN Reason: Blood Glucose less than 70 Stop: 11/18/16 20:59 Docusate Sodium (Colace) 200 mg PO QPM [facility] Stop: 11/11/16 16:59 Last Admin: 09/19/16 16:24 Dose: Not Given Furosemide (Lasix) 20 mg IVP BID [facility] Stop: 11/19/16 16:59 Glucagon (Glucagen) 1 mg IM PRN PRN PRN Reason: Blood Glucose less than 70 Stop: 11/18/16 20:59 Phenylephrine HCl 10 mg/ (Sodium Chloride) 251 mls @ 30.12 mls/hr IV TITR JULIO; 20 MCG/MIN PRN Reason: Protocol Stop: 11/07/16 00:59 Last Titration: 09/15/16 04:15 Dose: 0 mcg/min, 0 mls/hr Diltiazem HCl 125 mg/ Dextrose 125 mls @ 5 mls/hr IV TITR JULIO; 5 MG/HR PRN Reason: Protocol Stop: 11/08/16 18:59 Last Titration: 09/17/16 19:15 Dose: Infused Norepinephrine Bitartrate 8 mg (/ Dextrose) 258 mls @ 0 mls/hr IV TITR PRN; Protocol; 0 MCG/MIN PRN Reason: BP MAINTENANCE (PER PROTOCOL) Stop: 11/09/16 09:14 Last Titration: 09/20/16 04:34 Dose: 15 mcg/min, 29.02 mls/hr Multivitamins/Minerals 10 ml/Insulin Human Regular 15 units / Dextrose/ Amino Acids/Electrolytes/ Fat Emulsion Intravenous 1,440 mls @ 60 mls/hr IV .Q24H JULIO Stop: 11/18/16 14:59 Last Admin: 09/19/16 15:00 Dose: 60 mls/hr Insulin Aspart (Novolog Insulin Sliding Scale) 0 units SUBQ ACHS JULIO PRN Reason: Protocol Stop: 11/06/16 07:29 Last Admin: 09/20/16 06:46 Dose: 2 units Lactulose (Cephulac) 30 gm PO TID JULIO Stop: 11/12/16 14:14 Last Admin: 09/20/16 10:31 Dose: 30 gm Levothyroxine Sodium (Synthroid) 0.1 mg PO QDAC JULIO Stop: 11/09/16 07:29 Last Admin: 09/20/16 06:46 Dose: 0.1 mg Miscellaneous (Probiotic Screen) 1 ea MC PRN PRN PRN Reason: PROTOCOL Stop: 11/07/16 09:28 Miscellaneous (Tpn Per Pharmacy) 1 ea MC PRN PRN PRN Reason: PROTOCOL Stop: 11/13/16 15:59 Pantoprazole Sodium (Protonix) 40 mg IVP BID JULIO Stop: 11/07/16 16:59 Last Admin: 09/20/16 09:34 Dose: 40 mg Potassium Chloride (Potassium Chloride Elixir) 40 meq GT DAILY JULIO Stop: 11/19/16 08:59 Last Admin: 09/20/16 10:31 Dose: 40 meq General: no acute distress, well developed, well nourished HEENT: atraumatic, normocephalic, PERRLA, EOMI Neck: supple, no thyromegaly Cardiovascular: S1S2, regular Lungs: clear to auscultation bilaterally, clear to percussion Abdomen: soft, no tender, no distended Extremities: no cyanosis, no clubbing, no edema Neurological: awake, alert Skin: intact - Procedures Procedures: Procedures Procedure Code Date INSERT EMERGENCY AIRWAY [id number] 09/06/16 INSERTION OF ENDOTRACHEAL AIRWAY INTO [place], VIA OPENING [id number] 09/06/16 RESPIRATORY VENTILATION, GREATER THAN 96 CONSECUTIVE HOURS [id number] 09/06/16 VENT MGMT INPAT INIT DAY 09/06/16 VENT MGMT INPAT SUBQ DAY 09/06/16 Infectious Disease Assmt/Plan - Assessment Assessment: 1. Septic shock. severe sepsis. . MOF. treated. 2. Suspect pneumonia. Pneumococcal. 3. VDRF. 3. Aortic Stenosis. 4. Dementia. 5. H influenza ? colonizer versus pathogen. 6. Parkinson's disease. 7. DM2 8. HTN. 9. diarrhea 2/2 laxative. 10. Lactic acidosis. Improved. 11. Renal insufficiency with anasarca. - Plan Plan: Off antibiotics. Nutritional Asmnt/Malnutr-PDOC - Dietary Evaluation Malnutrition Findings (Please click <Entered> for more info): Nutritional Asmnt/Malnutrition Start: 09/07/16 13: 01 Text: Status: Complete Freq: Document 09/07/16 13:01 [facility] (Rec: 09/07/16 13:17 ARACELI [id number]) Nutritional Asmnt/Malnutrition Patient General Information Nutritional Screening High Risk Screening Diagnosis Aspiration pneumonia, septic shock, acute resp failure, acute renal failure Pertinent Medical Hx/Surgical Hx HTN, CVA right sided weakness, dementia Subjective Information 86 year old male. Pt seen resting with eyes closed. RT arriving at bedside for intubation during visit. Per RN notes, pt was intubated at 10:30am. Current Diet Order/ Nutrition Support No order. Pertinent Medications D5, Novolog, Solu-Medrol, Vancomycin Pertinent Labs 09/07: potassium 5.8H, BUN 88H (improving), creatiine 2 ( improving), gulcose 355H, A1c 6.2H Nutritional Hx/Data Height 1.78 m Height (Calculated Centimeters) 177.8 Current Weight (lbs) 85.956 kg Weight (Calculated Kilograms) 86.0 Weight (Calculated Grams) 76538.8 [place] Body Weight 166 Weight Status Overweight GI Symptoms Skin Integrity/Comment: Ricardo Womack. 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 Estimated Nutritional Goals Calories/Kcals/Kg IBW 166lb/75.5kg Kcals Calculated 2114-2416kcal (28-32kcal/kg) Protein g/kg: IBW Protein Calculated 91-136g (1.2-1.8g/kg, monitor acute renal, septic shock and PNA) Fluid: ml 2114-2416ml (1ml/kcal) Nutritional Problem 1. Problem Problem Increased kcal and prot needs related to Etiology hypermetabolic state aeb Signs/Symptoms: septic shock, aspiration penumonia Intervention/Recommendation Comments 1. No nutrition intervention at this time until pt is medically stable, pt newly intubated today. RD to follow tomorrow. Expected Outcomes/Goals Expected Outcomes/Goals 1. Pt to meet at least 75% of estimated nutritional needs.
[2016-09-20] MEDS: Docusate Sodium 100 mg/10 mL UD PO SCH (17:04)
[2016-09-20] MEDS: TPN 10%-70% CUSTOM IV SCH (20:08)
--- NOTE | 2016-09-21 04:06 | Progress Notes ---
DATE: 09/20/2016 PROBLEM LIST: 1. Persistent respiratory failure. 2. Bilateral effusion. 3. Persistent hypotension, on high doses of Levophed. 4. Chronic renal failure, on hemodialysis. 5. Cerebrovascular accident with significant encephalopathy with weakness in the right, hemiparesis. SYMPTOMS: Nil and periodically moving around, but not specifically with any purposeful meaning, no respiratory distress, currently getting 15____ of Levophed and currently on a ____. PHYSICAL EXAMINATION: GENERAL: No respiratory distress. VITAL SIGNS: Heart rate is ranging 120-130, blood pressure is 100-207, saturation is 99 on 30% of oxygen. NECK: Veins not visualized. CHEST: Shows diminished air entry with occasional rhonchi with some secretory noise. HEART: Irregular, tachycardic. ABDOMEN: Slightly distended, rebound tenderness with questionable guarding. EXTREMITIES: Shows ischemic changes, both the legs, right upper extremity is significantly swollen. LABORATORY DATA: The patient's today's laboratory studies, ABG shows pO2 of 87 with pH of 7.51 and electrolytes are okay except for BUN is still 29 and his albumin is 2.7. ASSESSMENT: The patient was status quo, persistent hypotensive, persistent respiratory failure, persistent renal failure with multiple other comorbidities. PLANS AND SUGGESTIONS: We will continue supportive care. Overall, prognosis appears to be very poor. JOB# [id number]
[2016-09-21] MEDS: INSULIN ASPART SLIDING SCALE 100 UNITS/ML UNIT SUBQ SCH ×4 (06:01→23:57)
[2016-09-21 06:07] LABS: INR 1.21 (0.5-1.4); PROTHROMBIN TIME (TEST) 12.7 SECONDS (9.5-11.5)
[2016-09-21 06:09] LABS: HEMATOCRIT 24.3 % (39.0-49.0); HEMOGLOBIN 8.3 gm/dL (12.6-17.4); MEAN CELL VOLUME 92.3 fl (80-99); MEAN CORPUSCULAR HEMOGLOBIN 31.4 pg (27.0-31.0); MEAN PLATELET VOLUME 13.4 fl; PLATELET COUNT 86 Th/cmm (150-400); RED BLOOD COUNT 2.64 Mil/cmm (3.80-5.80); RED CELL DISTRIBUTION WIDTH 19.9 % (11.5-20.0)
[2016-09-21 06:17] LABS: ALKALINE PHOSPHATASE 42 U/L (34-104); ANION GAP 9.2 (7.0-16.0); BILIRUBIN,TOTAL 3.3 mg/dL (0.3-1.0); BUN - UREA NITROGEN 31 mg/dL (7-25); BUN/CREATININE RATIO 25.8; CALCIUM SERUM 8.6 mg/dL (8.6-10.3); CALCIUM SERUM 8.8 mg/dL (8.6-10.3); CARBON DIOXIDE 31.8 mEq/L (21.0-31.0); CHLORIDE 102 mEq/L (98-107); CREATININE - SERUM 1.2 mg/dL (0.7-1.3); GLUCOSE 186 mg/dL (70-105); MAGNESIUM 1.9 mg/dL (1.9-2.7); SGOT 25 U/L (13-39); SGPT/ALT 24 U/L (7-52); SODIUM SERUM 139 mEq/L (136-145)
[2016-09-21 06:37] LABS: WHITE BLOOD COUNT 8.5 Th/cmm (4.8-10.8)
[2016-09-21] MEDS: Levothyroxine 0.1 Mg Tab PO SCH (06:43)
[2016-09-21 07:08] LABS: BAND NEUTROPHILE 4 % (0-10); EOSINOPHIL 1 % (0-5); NEUTROPHILS 87 % (40-80); TOTAL CELLS COUNTED 100
[2016-09-21 07:09] LABS: PLATELET ESTIMATE DECREASED PLATELETS (NORMAL); PLATELET MORPHOLOGY GIANT PLATELETS SEEN (NORMAL)
[2016-09-21 07:10] LABS: ANISOCYTOSIS 1+
[2016-09-21] MEDS: Budesonide 0.5 Mg/2 mL Ud HHN SCH ×2 (07:14→18:42)
[2016-09-21] MEDS: Albuterol/Ipratropium Neb 3 ML AERS HHN SCH ×4 (07:14→18:42)
[2016-09-21] MEDS: Chlorhexidine Gluconate 0.12% 15mL Mouthwash MM SCH ×2 (09:07→20:01)
[2016-09-21] MEDS: Lactulose 10 Gm/15 mL 30mL UDC PO SCH ×3 (09:08→20:56)
[2016-09-21] MEDS: Calcium Carb/Vit D 500 mg/200 U Tab PO SCH (09:09)
[2016-09-21] MEDS: TPN 10%-70% CUSTOM IV SCH (17:54)
[2016-09-21] MEDS: [UNRECOGNIZED DRUG - OTHER] IV SCH (18:09)
[2016-09-21] MEDS: AMINO ACIDS 15% IV SCH (18:09)
[2016-09-21] MEDS: MULTIVITAMIN IV SCH (18:09)
[2016-09-21] MEDS: INSULIN HUMAN REGULAR IV SCH (18:09)
[2016-09-22] MEDS: INSULIN ASPART SLIDING SCALE 100 UNITS/ML UNIT SUBQ SCH ×3 (06:07→18:12)
[2016-09-22] MEDS: Albuterol/Ipratropium Neb 3 ML AERS HHN SCH ×4 (06:41→18:44)
[2016-09-22] MEDS: Budesonide 0.5 Mg/2 mL Ud HHN SCH ×2 (06:41→18:44)
[2016-09-22] MEDS: Levothyroxine 0.1 Mg Tab PO SCH (06:49)
[2016-09-22 07:22] LABS: HEMATOCRIT 24.5 % (39.0-49.0); MEAN CELL VOLUME 92.4 fl (80-99); MEAN CORPUSCULAR HEMOGLOBIN 30.3 pg (27.0-31.0); MEAN CORPUSCULAR HGB CONC 32.8 pg (28.0-36.0); MEAN PLATELET VOLUME 13.1 fl; PLATELET COUNT 84 Th/cmm (150-400); RED BLOOD COUNT 2.65 Mil/cmm (3.80-5.80); RED CELL DISTRIBUTION WIDTH 19.5 % (11.5-20.0); WHITE BLOOD COUNT 7.2 Th/cmm (4.8-10.8)
--- NOTE | 2016-09-22 07:24 | Progress Notes ---
DATE: 09/21/2016 PROBLEM LIST: 1. Persistent hypotension. 2. Persistent bilateral abnormal chest x-ray. 3. Persistent respiratory failure. 4. Renal failure, on hemodialysis. SYMPTOMS: Nil. Still on a higher dose of vasopressors. PHYSICAL EXAMINATION: VITAL SIGNS: Afebrile, heart rate 110-120, blood pressure is still on the lower side, ____108/41 and saturation is okay on 30% of oxygen. NECK: Veins not visualized. Good bilateral carotid upstroke. CHEST: Shows diminished air entry with occasional rhonchi. HEART: Regular. ABDOMEN: Shows significant guarding, which is relatively new in a last 2 or 3 days with elevation of fibrinogen. ASSESSMENT: The patient clinically not much changed, question acute abdomen on the top of multiple other issues. PLANS AND SUGGESTIONS: We will get a CT of the abdomen for better evaluation and see how it is and go from there. JOB# [id number]
[2016-09-22 07:36] LABS: HEMOGLOBIN 8.1 gm/dL (12.6-17.4)
[2016-09-22 08:01] LABS: INR 1.17 (0.5-1.4); PROTHROMBIN TIME (TEST) 12.3 SECONDS (9.5-11.5)
[2016-09-22 08:10] LABS: ALKALINE PHOSPHATASE 43 U/L (34-104); ANION GAP 6.4 (7.0-16.0); BILIRUBIN,TOTAL 2.9 mg/dL (0.3-1.0); BUN - UREA NITROGEN 33 mg/dL (7-25); CALCIUM SERUM 8.5 mg/dL (8.6-10.3); CARBON DIOXIDE 31.9 mEq/L (21.0-31.0); CHLORIDE 103 mEq/L (98-107); CREATININE - SERUM 1.1 mg/dL (0.7-1.3); GLUCOSE 209 mg/dL (70-105); MAGNESIUM 1.9 mg/dL (1.9-2.7); PHOSPHOROUS 3.2 mg/dL (2.5-5.0); POTASSIUM SERUM 4.3 mEq/L (3.5-5.1); SGOT 26 U/L (13-39); SGPT/ALT 25 U/L (7-52); SODIUM SERUM 137 mEq/L (136-145)
[2016-09-22] MEDS: Chlorhexidine Gluconate 0.12% 15mL Mouthwash MM SCH (08:30)
[2016-09-22 08:56] LABS: ANISOCYTOSIS 1+; BAND NEUTROPHILE 7 % (0-10); BASOPHIL 1 % (0-3); EOSINOPHIL 3 % (0-5); NEUTROPHILS 80 % (40-80); PLATELET ESTIMATE DECREASED PLATELETS (NORMAL); PLATELET MORPHOLOGY GIANT PLATELETS SEEN (NORMAL); POLYCHROMASIA 1+; TOTAL CELLS COUNTED 100
[2016-09-22] MEDS: Lactulose 10 Gm/15 mL 30mL UDC PO SCH ×2 (09:03→14:13)
[2016-09-22] MEDS: Calcium Carb/Vit D 500 mg/200 U Tab PO SCH (09:04)
--- NOTE | 2016-09-22 10:40 | Diagnostic Imaging Report ---
CT scan abdomen and pelvis without intravenous contrast HISTORY: Abdominal distention, pain Total DLP equals 1024 CTDI equals 17.0 Axial sections were obtained from the xiphoid process down to the pubic symphysis. Limited sections through the chest demonstrate cardiomegaly with evidence of severe coronary artery and atherosclerotic vascular calcification. Bilateral pleural effusions are seen. There is a diminished size of the liver. Nasogastric tube noted in the stomach. Spleen appears normal. No focal abnormality seen within the pancreas. Intraluminal hyperdensity consistent with cholelithiasis seen in the gallbladder. No significant focal renal lesions. No hydronephrosis. Extensive atherosclerotic vascular calcification noted throughout the abdominal aorta and major branches. Small amount of ascites seen within the abdomen. The exam of the pelvis demonstrates a distended stool-filled rectum suggesting a fecal impaction. Severe degenerative changes noted throughout the spine. IMPRESSION: 1. Cardiomegaly with evidence of coronary artery and extensive atherosclerotic vascular disease 2. Bilateral pleural effusions 3. Small amount of ascites 4. Cholelithiasis 5. Distended stool-filled rectum consistent with a fecal impaction
[2016-09-22] MEDS ORDERED: Midazolam 1mg/ml 2 ml vial IV ONE ×2 (16:20→16:21)
[2016-09-22] MEDS: [UNRECOGNIZED DRUG - OTHER] IV SCH (17:32)
[2016-09-22] MEDS: INSULIN HUMAN REGULAR IV SCH (17:32)
[2016-09-22] MEDS: AMINO ACIDS 15% IV SCH (17:32)
[2016-09-22] MEDS: MULTIVITAMIN IV SCH (17:32)
--- NOTE | 2016-09-23 17:41 | Progress Notes ---
DATE: 09/22/2016 PROBLEM LIST: 1. Acute persistent respiratory failure. 2. Persistent hypotension, on vasopressor. 3. Renal failure, on hemodialysis. SYMPTOMS: The patient is awake, but no other communication. There is a questionable ____ are okay. PHYSICAL EXAMINATION: VITAL SIGNS: The patient's recorded vitals: Afebrile, heart rate is 110 to 120, BP is 80s to 90s systolic, and saturation 99% on 30%. NECK: Veins not visualized. CHEST: Shows diminished air entry with occasional rhonchi. HEART: Regular. ABDOMEN: Slightly tender with questionable rebound tenderness. CAT scan shows ____, but pool of stool on both colons and as well as in her rectal region. LABORATORY DATA: White count is 9.2, hemoglobin 8.1, platelet is 84, creatinine is 1.1, BUN is 33. ASSESSMENT: The patient clinically optimally stable ____ saturation with multiple systems failure. PLANS AND SUGGESTIONS: Okay for transfer to long-term acute care and continue rest of the treatment and go from there. JOB# [id number]
--- NOTE | 2016-09-24 09:49 | Diagnostic Imaging Report ---
Portable chest x-ray HISTORY: Shortness of breath, endotracheal tube placement Compared with the prior exam of September 20, 2016, there has developed increasing haziness and infiltrate within the right lung. Density noted in the right and left lower hemithoracic regions consistent with bilateral pleural effusions. The heart remains enlarged. An endotracheal tube has been inserted. The tip is approximately 2.5 cm above the vincent. IMPRESSION: 1. Endotracheal tube placement as noted above 2. Increasing hazy infiltrates suggesting infiltrate within the right lung. 3. Persistent cardiomegaly with bilateral pleural effusions. Findings may be associated with congestive heart failure. Clinical correlation is needed.
--- NOTE | 2016-09-24 14:01 | Progress Notes ---
DATE: 09/08/2016 PULMONARY PROGRESS NOTE PROBLEM LIST: 1. Acute respiratory failure. 2. Septic shock. 3. Hypotension. 4. Left-sided hemiparesis. 5. History of Alzheimer. SYMPTOMS: Nil. He is on next dose of Levophed. The patient is still quite obtunded. Currently still on assist control mode of ventilator and no respiratory distress. PHYSICAL EXAMINATION: VITAL SIGNS: The patient is afebrile, heart rate is 120, approximately blood pressure is 113/45 and saturation 100%. ____ is not clear cut. NECK: Veins not visualized. CHEST: Shows diminished air entry with occasional rhonchi. HEART: Regular. ABDOMEN: Soft, nontender. EXTREMITIES: Shows some areas of ischemic necrosis or dry gangrene ____. LABORATORY DATA: The patient's white count is 9000, hemoglobin 10.2. ABG with pO2 of 83 on 30% of oxygen ____ assist control and the patient's electrolytes are okay except for still BUN is 76, creatinine 1.9. ASSESSMENT: The patient clinically not much changed, possibly malposition of the ET tube, very hard to say. PLANS AND SUGGESTIONS: We will ____ at least by 2 cm. We will continue current treatment. We will follow up repeat chest x-ray, blood gases and go from there JOB# [id number]
--- NOTE | 2016-10-04 01:13 | Discharge Summary ---
DATE OF DISCHARGE: 09/22/2016 FINAL DIAGNOSES: 1. Aspiration pneumonia. 2. Acute respiratory failure. 3. Septic shock. 4. Disseminated intravascular coagulopathy. 5. Hypertension. 6. Acute renal failure secondary to acute tubular necrosis. 7. Hypernatremia. 8. Chronic anemia. REVIEW OF HISTORY: The patient is an 86-year-old male with long history of hypertension, CVA, admitted to [facility] on 09/06/2016 with pneumonia, septic shock, acute respiratory failure, acute renal failure and dehydration. The patient admitted to the ICU. ADMISSION PHYSICAL EXAMINATION: VITAL SIGNS: Temperature was 98, heart rate 95 and blood pressure 108/60. CHEST: Diminished breathing sounds. HEART: S1 and S2 normal. ABDOMEN: Soft and bowel sounds positive. LABORATORY DATA: Sodium 162, potassium 5.6, BUN 96, creatinine 2.1. The patient was started on IV fluid and IV antibiotic. CONSULTANTS: Dr. Dexter Bowen, child adolescent psychiatrist and Dr. Bartlett, Nephrology consult on the case. COURSE OF HOSPITALIZATION: During his hospitalization, the patient was evaluated by child adolescent psychiatrist, infectious disease specialist, and licensed loan officer assistant. The patient was stabilized clinically. Also, the patient was seen by Dr. Calvo and the patient was diagnosed with disseminated intravascular coagulopathy. On 09/17/2016, the patient was still on the ventilator, still on Levophed. CHEST: Mild diminished breathing sounds. HEART: S1 and S2 normal. ABDOMEN: Soft and bowel sounds positive. On 09/19/2016, the patient has no fever and no chills. CHEST: Good entry of air. HEART: S1 and S2 normal. ABDOMEN: Soft and bowel sounds positive. On 09/19/2016, temperature 99, heart rate 104. CHEST: Clear to auscultation. White blood cells 8.5, hemoglobin 8.3. Sodium 139, potassium 4.0, BUN 31, and creatinine 0.9. The patient was evaluated by [facility] DISPOSITION: The patient was transferred to [facility], to continue on his medication and diet. CONDITION ON DISCHARGE: Stable. MEDICATIONS: Follow discharge reconciliation. JOB# [id number]
== END 2016-09-22 19:40 | DRG 870 ==
LOC: ER 16:31 → ICU 19:15
PROVIDERS: ADMIT Family Medicine; ATTEND Family Medicine
PROC: 0BH17EZ Insertion of Endotracheal Airway into Trachea, Via Natural or Artificial Opening (ICD-10-PCS; principal; 2016-09-07)
PROC: 5A1955Z Respiratory Ventilation, Greater than 96 Consecutive Hours (ICD-10-PCS; 2016-09-07)
PROC: 02HV33Z Insertion of Infusion Device into Superior Vena Cava, Percutaneous Approach (ICD-10-PCS; 2016-09-14)
PROC: B548ZZA Ultrasonography of Superior Vena Cava, Guidance (ICD-10-PCS; 2016-09-14)
PROC: 30233P1 Transfusion of Nonautologous Frozen Red Cells into Peripheral Vein, Percutaneous Approach (ICD-10-PCS; 2016-09-15)
PROC: 30233K1 Transfusion of Nonautologous Frozen Plasma into Peripheral Vein, Percutaneous Approach (ICD-10-PCS; 2016-09-15)
PROC: 5A1D00Z (ICD-10-PCS; 2016-09-17)
DX: A41.9 Sepsis, unspecified organism (principal); J96.01 Acute respiratory failure with hypoxia; R65.21 Severe sepsis with septic shock; J69.0 Pneumonitis due to inhalation of food and vomit; N17.9 Acute kidney failure, unspecified; D69.6 Thrombocytopenia, unspecified; E11.52 Type 2 diabetes mellitus with diabetic peripheral angiopathy with gangrene; E87.0 Hyperosmolality and hypernatremia; I69.351 Hemiplegia and hemiparesis following cerebral infarction affecting right dominant side; I13.0 Hypertensive heart and chronic kidney disease with heart failure and stage 1 through stage 4 chronic kidney disease, or unspecified chronic kidney disease; Z99.11 Dependence on respirator [ventilator] status; K56.7 Ileus, unspecified; K52.1 Toxic gastroenteritis and colitis; E11.22 Type 2 diabetes mellitus with diabetic chronic kidney disease; N18.9 Chronic kidney disease, unspecified; E56.1 Deficiency of vitamin K; I50.9 Heart failure, unspecified; M19.90 Unspecified osteoarthritis, unspecified site; I48.91 Unspecified atrial fibrillation; E03.9 Hypothyroidism, unspecified; G20 Parkinson's disease; R13.10 Dysphagia, unspecified; R26.9 Unspecified abnormalities of gait and mobility; E87.5 Hyperkalemia; I35.0 Nonrheumatic aortic (valve) stenosis; T47.4X5A Adverse effect of other laxatives, initial encounter; Y92.89 Other specified places as the place of occurrence of the external cause
CPT/HCPCS: 36415-UA; 36600-90; 71010-TC; 74000-TC; 80048-TC; 80053-TC; 80076-TC; 80162-TC; 80202-TC; 81001-TC; 82140-TC; 82248-TC; 82270-TC; 82310-TC; 82465-TC; 82803-TC; 82948-90; 83036-90; 83605; 83735-TC; 83880-TC; 84100-TC; 84134-90; 84478-TC; 84484-TC; 85007-TC; 85025-TC; 85027-TC; 85049-TC; 85379-TC; 85384-TC; 85610-TC; 85730-TC; 86850-TC; 86900-TC; 86901-TC; 86927-TC; 87070; 87086-90; 90779; 90799; 90937; 93005; 93925-TC; 94002; 94003; 94640; 96379; 99201; C1751; C9113; J0330; J0696; J1160; J1644; J1815; J1940; J1956; J2060; J2185; J2250; J2370; J2543; J2920; J2930; J3370; J3430; J3475; J3480; J7030; J7040; J7042; J7070; P9017; P9046; X6452; X6598; Z7610